=== PATIENT | male | born 1960 | race Caucasian/White ===

== ENCOUNTER 2019-07-08 08:00 | Outpatient (RCR) | payer MEDICARE, OTHER, SELFPAY | END 2019-07-15 23:59 | disposition home or self-care (01) | LOC: WOUND 08:00 | PROVIDERS: Family Provider Internal Medicine; PCP Internal Medicine; Visit Provider Surgery | DX: I87.2 Venous insufficiency (chronic) (peripheral) (principal); L97.812 Non-pressure chronic ulcer of other part of right lower leg with fat layer exposed; I96 Gangrene, not elsewhere classified | CPT/HCPCS: 11042; G0463 ==

== ENCOUNTER 2019-07-15 08:39 | Outpatient (RCR) | payer MEDICARE, OTHER, SELFPAY | END 2019-07-15 23:59 | disposition home or self-care (01) | LOC: WOUND 08:39 | PROVIDERS: Family Provider Internal Medicine; PCP Internal Medicine; Visit Provider Surgery | DX: I87.2 Venous insufficiency (chronic) (peripheral) (principal); L97.902 Non-pressure chronic ulcer of unspecified part of unspecified lower leg with fat layer exposed | CPT/HCPCS: 11042 ==

== ENCOUNTER 2019-07-29 08:36 | Outpatient (RCR) | payer MEDICARE, OTHER, SELFPAY | END 2019-08-13 23:59 | disposition home or self-care (01) | LOC: WOUND 08:36 | PROVIDERS: Family Provider Internal Medicine; PCP Internal Medicine; Visit Provider Surgery | DX: I87.2 Venous insufficiency (chronic) (peripheral) (principal); L97.902 Non-pressure chronic ulcer of unspecified part of unspecified lower leg with fat layer exposed | CPT/HCPCS: 11042; 99212; A6545 ==

== ENCOUNTER 2020-04-20 08:51 | Inpatient (IN) | payer MEDICARE, OTHER, SELFPAY ==
[2020-04-20] VITALS (45 sets, daily range): BP systolic 109–150; BP diastolic 49–95; PULSE 76–153; RESP 9–36; TEMP 36.7–37.6; O2SAT 89–99; BMI 62.7
--- NOTE | 2020-04-20 09:14 | XR_ITS ---
WS: [id number] XR chest 1V portable [id number] REASON FOR EXAM: dyspnea FINDINGS: Pacemaker in place over the left chest with leads to the right atrium and right ventricular apex. The re is cardiomegaly. There are chronic interstitial changes in the left lower lung. The lung martinez are otherwise relative ly clear. Mild flattening of the hemidiaphragms. Degenerative spondylosis, moderate, in the mid and lower thoracic spine. XR/XR chest 1V portable [id number] IMPRESSION: No acute chest abnormality identified.
[2020-04-20 09:33] LABS: ABG PH Result 7.46 (7.35-7.45); Arterial Blood Gas Hematocrit 40.4 % (42-52); Base Excess ABG 0.9 mmol/L (-2.0-2.0); Blood Gas Allen Test Pos; Blood Gas Operator Identificat MONRO; Blood Gas Sample Site Radial, left; Blood Gas Sample Type Arterial; HCO3 ABG 24.3 mmol/L (22-26); Oxygen Device NC; PO2 ABG 89.6 mmHg (80.0-100.0)
[2020-04-20 09:44] LABS: Basophils % 0.2 %; Eosinophils % 0.2 %; Hematocrit 41.3 % (42.0-52.0); Hemoglobin 13.2 g/dL (11.7-16.6); Lymphocytes # 0.8 10^3/uL (0.8-4.8); Mean Corpuscular Hemoglobin 31.9 pg (28.0-34.0); Mean Corpuscular Volume 99.8 fL (80-94); Mean Platelet Volume 11.2 fL (7.4-10.4); Monocytes # 0.5 10^3/uL (0.2-0.9); Monocytes % 10.5 %; Neutrophils # 3.21 10^3/uL (1.8-7.7); Neutrophils % 71.7 %; Nucleated Red Blood Cells % 0 %; Platelet Count 136 10^3/cmm (130-400); Red Blood Count 4.14 10^6/uL (4.1-5.3); Red Cell Distribution Width 13.4 % (12.1-15.1); White Blood Count 4.5 10^3/uL (4.0-10.0)
[2020-04-20] MEDS: dexamethasone 4 mg/mL INJ 6 MG IVP (09:55)
[2020-04-20] MEDS: amiodarone 200 mg Tablet PO (09:56)
[2020-04-20] MEDS: metoprolol tartrate 1 mg/1 mL SDV 5 mL 5 MG IV (09:56)
[2020-04-20 10:01] LABS: Lactic Sepsis W/Reflex 1.4 mmol/L (0.5-2.2)
[2020-04-20 10:02] LABS: Fibrinogen 586 mg/dL (174-498)
[2020-04-20 10:04] LABS: D Dimer 2.03 ug/mIFEU (0-0.59)
[2020-04-20 10:22] LABS: Alanine Aminotransferase 30 U/L (0-41); Albumin Level 3.4 g/dL (3.5-5.2); Alkaline Phosphatase 57 IU/L (40-130); Aspartate Amino Transferase 31 U/L (0-40); Blood Urea Nitrogen 10 mg/dL (8-23); C Reactive Protein 86.1 mg/L (0.0-4.9); Carbon Dioxide 24 mmol/L (22-29); Chloride 103 mmol/L (98-107); Globulin 3.7 g/dL (1.3-4.6); Glomerular Filtration Rate 86.1 mL/min (90-130); Glucose 122 mg/dL (65-115); Osmolality Calculated 288 mOsm/kg (285-295); Sodium 139 mmol/L (136-145); Total Bilirubin 0.4 mg/dL (0.15-1.2); Total Protein 7.1 g/dL (6.6-8.7)
--- NOTE | 2020-04-20 10:23 | ED_ITS ---
HPI - Arrhythmia/Palpitations General: Chief Complaint: Arrhythmia/Palpitations Stated Complaint: HIGH HEARTRATE/COVID+ Time Seen by Provider: 04/20/20 09:11 History of Present Illness: HPI narrative: 59-year-old male presents complaining of cough shortness of breath and rapid heart rate with any exertion his heart rate goes up significantly. He recently tested positive for Covid at a local clinic on a rapid nucleic acid antigen test. He states that any e xertion he gets significantly short of breath he is intermittently had low-grade fevers and diarrhea as well. MD complaint: rapid heart beat, heart racing , irregular heart beat and atrial fibrillation Onset (ago): hour(s) Duration: constant Severity: moderate Context: occurred during rest Associated symptoms: Deny nausea or vomiting Review of Systems Const: Denies: fever(s), chills, body aches, change in appetite, fatigue or malaise ENMT: Reports: nasal discharge and nasal congestion; Denies: throat pain or ear or mastoid pain Card: Reports: edema, dyspnea on exertion and orthopnea; Denies: chest pain Resp: Denies: dyspnea, productive cough or non-productive cough GI: Reports: diarrhea; Denies: abdominal pain, nausea, vomiting, hematemesis, coffee ground emesis, constipation, bloating, hematochezia or melena : Denies: flank pain, dysuria, urinary frequency or urinary urgency Skin/Breast: Denies: rash or pruritus PFSH ED PFSH: Medical History (Updated 04/21/20 @ 12:14 by David Atwood DO) Anticoagulation adequate with anticoagulant therapy Xarelto Atrial fibrillation Cardiomyopathy CHF (congestive heart failure) Dyslipidemia HTN (hypertension) Obesity MIMI on CPAP Sleep apnea Venous insufficiency Surgical History (Updated 04/20/20 @ 16:37 by Berny Wright MD) H/O hand surgery H/O local excision of skin lesion History of cardiac radiofrequency ablation S/P ICD (internal cardiac defibrillator) procedure Family History (Updated 04/20/20 @ 16:36 by Berny Wright MD) Other No significant family history Social History Smoking and tobacco status: former smoker Alcohol intake: current Alcohol intake frequency: holidays/special occasions only Household members: spouse Marital status: service: No Current occupational status: disabled Physical Exam Const: COMMON NORMALS: no acute distress GENERAL APPEARANCE: cooperative and comfortable ORIENTATION/CONSCIOUSNESS: Yes awake, Yes oriented to person, Yes oriented to place and Yes oriented to time HENMT: COMMON NORMALS: normocephalic, atraumatic and hearing grossly normal bilaterally HEAD & SCALP: normocephalic and atraumatic Resp: COMMON NORMALS: normal respiratory effort, No retractions, No use of accessory muscles and clear to auscultation bilaterally AUSCULTATION: clear to auscultation bilaterally Cardio: RATE: tachycardic RHYTHM: abnormal rhythm irregularly irregular GI: COMMON NORMALS: Soft to palpation and No hepatosplenomegaly present AUSCULTATION: Yes normoactive bowel sounds PALPATION: Yes Soft to palpation, No Tenderness to palpation present (GI), No Guarding due to palpation present (GI) and Yes No hepatosplenomegaly present Extremity: OTHER: 3+ edema of the lower extremities with ulcers present on the left leg medial and laterally dry eschars are present without drainage there is no evidence of erythema or. No signs of cellulitis Neuro: SENSORIUM/ORIENTATION: Yes oriented to person, Yes oriented to place and Yes oriented to time Skin: COMMON NORMALS: no rashes or lesions noted GENERAL SKIN EXAM: no rashes or lesions noted Course Vital Signs: Vital signs: Vital Signs Temperature 97.9 F 04/21/20 06:00 Pulse Rate 82 04/21/20 10:00 Respiratory Rate 20 H 04/21/20 10:00 Blood Pressure 126/78 04/21/20 06:00 Pulse Oximetry 96 04/21/20 09:40 MDM - Arrhythmia/Palpitations MDM Narrative: Medical decision making narrative: A. fib with RVR did not take his morning medicines we gave him his amiodarone and some IV beta-fausto he still did not have improvement of his rate. He was started on Cardizem and given oral beta-fausto. Will admit due to his pneumonia which is likely secondary to his recent COVID-19 diagnosis also for his A. fib with RVR discussed Dr. Wright orders are written Lab Data: Labs: Lab Results 04/20/20 04/20/20 04/20/20 Range/Units 09:20 09:35 09:35 WBC 4.5 (4.0-10.0) 10^3/ uL RBC 4.14 (4.1-5.3) 10^6/u L Hgb 13.2 (11.7-16.6) g/dL Hct 41.3 L (42.0-52.0) % MCV 99.8 H (80-94) fL MCH 31.9 (28.0-34.0) pg MCHC 32.0 (30.0-36.0) g/dL RDW 13.4 (12.1-15.1) % Plt Count 136 (130-400) 10^3/c mm MPV 11.2 H (7.4-10.4) fL Neut % (Auto) 71.7 % Lymph % (Auto) 17.0 % Moffat % (Auto) 10.5 % Eos % (Auto) 0.2 % Baso % (Auto) 0.2 % Neut # (Auto) 3.21 (1.8-7.7) 10^3/u L Lymph # (Auto) 0.8 (0.8-4.8) 10^3/u L Moffat # (Auto) 0.5 (0.2-0.9) 10^3/u L Eos # (Auto) 0.0 (0.0-0.8) 10^3/u L Baso # (Auto) 0.0 (0.0-0.1) 10^3/u L Nucleated RBC % (a uto) 0 % Nucleated RBCs # 0.0 /100WBC Fibrinogen 586 H (174-498) mg/dL D-Dimer 2.03 H (0-0.59) ug/mIFE U Specimen Type Arterial Sample Site Radial, left ABG pH 7.46 H (7.35-7.45) ABG pCO2 34.0 L (35-45) mmHg ABG pO2 89.6 (80.0-100.0) mmH g ABG HCO3 24.3 (22-26) mmol/L ABG Base Excess 0.9 (-2.0-2.0) mmol/ L Rafita Test Pos Hematocrit 40.4 L (42-52) % O2 Delivery Device Nc O2 Liters/Min 3.0 % FiO2 32.0 % Turf Farm Worker ID Monro Sodium (136-145) mmol/L Potassium (3.5-5.1) mmol/L Chloride (98-107) mmol/L Carbon Dioxide (22-29) mmol/L Anion Gap (5-19) BUN (8-23) mg/dL Creatinine (0.7-1.2) mg/dL GFR Calculation (90-130) mL/min Glucose (65-115) mg/dL Calculated Osmolal ity (285-295) mOsm/k g Lactic Acid (0.5-2.2) mmol/L Calcium (8.5-10.5) mg/dL Total Bilirubin (0.15-1.2) mg/dL AST (0-40) U/L ALT (0-41) U/L Alkaline Phosphata se (40-130) IU/L Lactate Dehydrogen ase (135-225) U/L Creatine Kinase (39-308) U/L C-Reactive Protein (0.0-4.9) mg/L Total Protein (6.6-8.7) g/dL Albumin (3.5-5.2) g/dL Globulin (1.3-4.6) g/dL Procalcitonin (0-0.5) ng/mL 04/20/20 04/20/20 Range/Units 09:35 09:35 WBC (4.0-10.0) 10^3/ uL RBC (4.1-5.3) 10^6/u L Hgb (11.7-16.6) g/dL Hct (42.0-52.0) % MCV (80-94) fL MCH (28.0-34.0) pg MCHC (30.0-36.0) g/dL RDW (12.1-15.1) % Plt Count (130-400) 10^3/c mm MPV (7.4-10.4) fL Neut % (Auto) % Lymph % (Auto) % Moffat % (Auto) % Eos % (Auto) % Baso % (Auto) % Neut # (Auto) (1.8-7.7) 10^3/u L Lymph # (Auto) (0.8-4.8) 10^3/u L Moffat # (Auto) (0.2-0.9) 10^3/u L Eos # (Auto) (0.0-0.8) 10^3/u L Baso # (Auto) (0.0-0.1) 10^3/u L Nucleated RBC % (a uto) % Nucleated RBCs # /100WBC Fibrinogen (174-498) mg/dL D-Dimer (0-0.59) ug/mIFE U Specimen Type Sample Site ABG pH (7.35-7.45) ABG pCO2 (35-45) mmHg ABG pO2 (80.0-100.0) mmH g ABG HCO3 (22-26) mmol/L ABG Base Excess (-2.0-2.0) mmol/ L Rafita Test Hematocrit (42-52) % O2 Delivery Device O2 Liters/Min % FiO2 % Turf Farm Worker ID Sodium 139 (136-145) mmol/L Potassium 3.7 (3.5-5.1) mmol/L Chloride 103 (98-107) mmol/L Carbon Dioxide 24 (22-29) mmol/L Anion Gap 15.7 (5-19) BUN 10 (8-23) mg/dL Creatinine 0.9 (0.7-1.2) mg/dL GFR Calculation 86.1 L (90-130) mL/min Glucose 122 H (65-115) mg/dL Calculated Osmolal ity 288 (285-295) mOsm/k g Lactic Acid 1.4 (0.5-2.2) mmol/L Calcium 8.0 L (8.5-10.5) mg/dL Total Bilirubin 0.4 (0.15-1.2) mg/dL AST 31 (0-40) U/L ALT 30 (0-41) U/L Alkaline Phosphata se 57 (40-130) IU/L Lactate Dehydrogen ase 302 H (135-225) U/L Creatine Kinase 369 H* (39-308) U/L C-Reactive Protein 86.1 H (0.0-4.9) mg/L Total Protein 7.1 (6.6-8.7) g/dL Albumin 3.4 L (3.5-5.2) g/dL Globulin 3.7 (1.3-4.6) g/dL Procalcitonin 0.10 (0-0.5) ng/mL Discharge Plan Discharge Patient Disposition: Admitted As Inpatient Admit Provider: Berny Wright Clinical Impression: Pneumonia due to COVID-19 virus, Atrial fibrillation, CHF (congestive heart failure), Rhabdomyolysis, HTN (hypertension), Obesity Condition: Stable Interventions: ED Discharge Assessment Last Done: 04/20/20 16:30 ED Charges Last Done: 04/20/20 16:30 Discharge Date/Time: 04/20/20 17:00 Coding Level of Care Code ED Manager Sustainability for Chg Fwd Exam Detailed
[2020-04-20 10:25] LABS: Creatine Phosphokinase 369 U/L (39-308)
[2020-04-20 10:26] LABS: Anion Gap 15.7 (5-19); Lactate Dehydrogenase 302 U/L (135-225); Potassium 3.7 mmol/L (3.5-5.1)
--- NOTE | 2020-04-20 10:29 | CT_ITS ---
WS: [id number] CTA OF THE CHEST WITH PULMONARY EMBOLISM PROTOCOL TECHNIQUE: High-resolution contrast enhanced CTA of the chest with coronal and sagittal reformatted i mages with pulmonary embolism protocol. MIP images are also reviewed. CLINICAL INFORMATION: dyspnea, orthopnea/covid + COMPARISON: None. DLP: 976.[address] scans at [facility] use at least one of these dose optimization techniques: automat ed exposure control; mA and/or kV adjustment per patient size (includes targeted exams where dose is matched to clinical indication); or iterative reconstruction. FINDINGS: Somewhat poor contrast bolus. Proximal main pulmonary arteries are normal. Proximal segmental pulmona ry arteries are patent. Subsegmental pulmonary arteries not well visualized but no evidence of pulmon nena embolus. Cardiomegaly. Multiple enlarged anterior mediastinal, AP window, peribronchial and subcarinal lymph n odes likely reactive. Normal caliber thoracic aorta. Mild patchy hazy groundglass opacities about the right hilum and left infrahilar extending into the left lower lobe peripherally. Additional similar-appearing opacity in r ight lower lobe posterior medially. Relative sparing of the lung apices. No significant pleural fluid. Slight subsegmental atelectasis left lower lobe. No axillary lymphadeno rip. Adrenal glands are normal. Small esophageal hiatal hernia. A few tiny cysts in the liver. Moderate th oracic kyphosis. Hypertrophic changes thoracic spine. CT/CT angio chest PE protcl [id number] IMPRESSION: 1. Somewhat poor contrast bolus. No evidence of proximal pulmonary embolus. 2. Cardiomegaly. 3. Patchy hazy groundglass opacities in a perihilar and infrahilar location ex tending into the left greater than right lower lobes consistent with pneumonia. 4. Numerous enlarged anterior mediastinal peribronchial and subcarinal lymph n odes likely reactive. 5. Small esophageal hiatal hernia.
--- NOTE | 2020-04-20 11:41 | ECG_ITS ---
[facility] Test Date: 2020-04-20 Pat Name: Harry Miles Department: Room: Gender: Male Certified Registered Nurse Anesthetist: : 1960 Requested By: David Morton Order Number: [id number] Reading MD: RICO PFEIFFER Measurements Intervals [place] Rate: 150 P: ME: -1 QRS: -42 QRSD: 95 T: 74 QT: 302 QTc: 478 Interpretive Statements ATRIAL FIBRILLATION WITH RAPID VENTRICULAR RESPONSE ANTERIOR MYOCARDIAL INFARCTION [40+ ms Q WAVE AND/OR ST/T ABNORMALITY IN V3/V4], PROBABLY OLD INFERIOR MYOCARDIAL INFARCTION [40+ ms Q WAVE AND/OR ST/T ABNORMALITY IN II/aVF], PROBABLY OLD Compared to ECG 08/11/2018 13:31:01 Sinus bradycardia no longer present Myocardial infarct finding still present Electronically Signed On 04-20-2020 19:28:45 SENIOR FACILITIES MANAGER by RICO PFEIFFER [id number]
[2020-04-20] MEDS: iohexol 350 mg/mL 100 mL Btl IV (12:19)
--- NOTE | 2020-04-20 16:01 | PC.NURSE ---
Attempted to call report after being asked to wait 1 hour due to allow assigned roommate to pass peacefully, MARTIN Pugh (traveler) that they would not be taking that patient until another patient was extubated and settled and they had already told assistant executive housekeeper,
--- NOTE | 2020-04-20 16:02 | PM.HP ---
Providers/Chief Complaint Admitting Physician: Berny Wright Primary Care Provider: Nirav Parra DO Chief Complaint: HIGH HEARTRATE History of Present Illness Harry Miles is a 59 year old gentleman with CHF, Atrial fibrillation, previously difficult to control, with ablation performed in the past, cardioversion, on amiodarone, high dose of metoprolol. Follows up with cardiology in office. Status post ICD. Other history includes chronic venous insufficiency, lower extremity chronic swelling, chronic ulceration, HTN, HLD, obesity, sleep apnea. He presents to the hospital after progressive shortness of breath, dyspnea with exertion, extremely easy fatigability. He reports that he was diagnosed with COVID-19 on 04/10. He says that initially was having some nausea vomiting and diarrhea. He says those had subsided day before yesterday, but now has started developing progressive shortness of breath. In ER I am informed he was desaturating very easily with even minimal activity, getting very short of breath, and so required initiation of oxygen. D-dimer is found elevated at 2.03. CTA with patchy hazy groundglass opacities in perihilar and infrahilar regions, extending into left greater than right lower lobes consistent with pneumonia. Incidentally noted numerous enlarged anterior mediastinal peribronchial and subcarinal lymph nodes suspected reactive. No proximal pulmonary embolus, somewhat poor contrast bolus. Incidentally noted small esophageal hiatal hernia. He is also noted in A. fib with RVR, heart rates in 120s. Denies chest pain. Had not had a chance to take his morning medications. Was given 25 mg metoprolol p.o., 5 mg IV, but with no response. Diltiazem was started after IV bolus. He was started on Decadron. Review of Systems Const: Reports: fatigue; Denies: body aches or malaise Eyes: Denies: change in vision or eye redness ENMT: Denies: throat pain, oral sores or ear or mastoid pain Card: Reports: irregular heart rhythm, edema (chronic, currently better) and dyspnea on exertion; Denies: chest pain or pre-syncope Resp: Reports: dyspnea and pain on inspiration (Tiny area of sharp pain on inspiration in the left chest started today.); Denies: productive cough, change in phlegm color or hemoptysis GI: Denies: abdominal pain, nausea, vomiting, diarrhea, constipation, hematochezia or melena : Denies: flank pain, difficulty urinating, urinary frequency or hematuria Musc: Denies: back pain, joint swelling or joint redness Skin/Breast: Reports: rash (Chronic venous stasis), sores (Chronic venous stasis ulceration on left lower leg, medially above the ankle) and dry skin (chronic dry scaly skin); Denies: new lesions Neuro: Denies: headache(s), numbness in extremities, weakness in extremities, dizziness, confusion or seizure-like activity Endo: Denies: polyuria or polydipsia Amandeep/Lymph: Denies: easy bleeding or purpura All/Imm: Denies: urticaria, throat swelling or tongue swelling Medications/Allergies Home Medications Medication Instructions Recorded Confirmed Last Taken Type furosemide 40 mg tablet 40 mg PO BID 06/19/19 04/20/20 04/19/20 History aspirin 81 mg tablet,delayed 81 mg PO DAILY tab 09/29/19 04/20/20 04/19/20 History release nitroglycerin 0.4 mg sublingual 0.4 mg SUBLINGUAL Q5M PRN 09/29/19 04/20/20 Unknown History tablet rivaroxaban 20 mg tablet 20 mg PO DAILY tab 09/29/19 04/20/20 04/19/20 History sacubitril 49 mg-valsartan 51 mg 1 tab PO BID #60 tab 02/09/20 04/20/20 04/19/20 Rx tablet amiodarone 200 mg tablet 200 mg PO DAILY 03/22/20 04/20/20 04/19/20 History Cough Tabs 2 tab PO TID PRN 04/20/20 04/20/20 Unknown History ibuprofen 400 mg PO PRN 04/20/20 04/20/20 04/19/20 History metoprolol succinate 200 mg PO DAILY 04/20/20 04/20/20 04/19/20 History montelukast [Singulair] 10 mg PO DAILY PRN 04/20/20 04/20/20 Unknown History Allergies Allergy/AdvReac Type Severity Reaction Status Date / Time No Known Allergies Allergy Verified 04/20/20 10:27 PFSH Acute PFSH: Medical History (Updated 04/20/20 @ 16:41 by Berny Wright MD) Anticoagulation adequate with anticoagulant therapy Xarelto Atrial fibrillation Cardiomyopathy CHF (congestive heart failure) Dyslipidemia HTN (hypertension) Obesity MIMI on CPAP Sleep apnea Venous insufficiency Surgical History (Updated 04/20/20 @ 16:37 by Berny Wright MD) H/O hand surgery H/O local excision of skin lesion History of cardiac radiofrequency ablation S/P ICD (internal cardiac defibrillator) procedure Family History (Updated 04/20/20 @ 16:36 by Berny Wright MD) Other No significant family history Social History Smoking and tobacco status: former smoker Alcohol intake: current Alcohol intake frequency: holidays/special occasions only Household members: spouse Marital status: service: No Current occupational status: disabled Vitals/I&O/Wt Last Vital Signs Temp 99.6 F 04/20/20 08:54 Pulse 87 04/20/20 15:45 Resp 17 04/20/20 15:45 BP 122/92 04/20/20 15:45 Pulse Ox 92 04/20/20 15:45 04/20/20 04/20/20 04/20/20 06:59 14:59 22:59 Intake Total 4.833 / 4.833 Balance 4.833 / 4.833 Weight last 48 hrs Weight 192.777 kg Physical Exam Const: COMMON NORMALS: no acute distress and patient oriented x3 NUTRITIONAL APPEARANCE: obese HENMT: COMMON NORMALS: oropharynx normal Neck/C-Spine: COMMON NORMALS: no JVD Resp: COMMON NORMALS: normal respiratory effort AUSCULTATION: wheezes and diminished lung sounds Cardio: COMMON NORMALS: no JVD, regular rhythm, S1 normal heart sound present, S2 normal heart sound present and No murmurs present (Cardio) RATE: tachycardic RHYTHM: abnormal rhythm irregularly irregular HEART SOUNDS: S1 normal heart sound present and S2 normal heart sound present GI: COMMON NORMALS: Normal to inspection, nondistended, normoactive bowel sounds present, Soft to palpation and non-tender PALPATION: Yes Soft to palpation Extremity: COMMON NORMALS: no joint enlargement GENERAL: Yes edema (Chronic severe bilateral venous stasis. Medial left lower extremity chronic venous ulceration. No active drainage. No purulence.) Neuro: COMMON NORMALS: patient oriented x3 and moves all extremities Skin: GENERAL SKIN EXAM: dry skin LESIONS: lesion noted (Ulceration from venous stasis medial lower extremity above the ankle) RASHES: rashes noted (Chronic bilateral lower extremity venous stasis dermatitis.) Data : 04/20/20 09:35 04/20/20 09:35 A&P Assessment and plan (1) Pneumonia due to COVID-19 virus: Progressive shortness of breath, easy fatigability, dyspnea on exertion in the last several days. Previously diarrhea, nausea vomiting, but this appeared to resolve day before yesterday. D-dimer elevated above 2. CRP is 86.1. Groundglass opacities, pneumonia noted on CTA. No PE. At this time no definitive evidence of bacterial pneumonia, although there is some asymmetry to pneumonia on imaging. No leukocytosis. Temp 99.6. Reported requiring oxygen with desaturation down to 90% with minimal exertion. Dyspnea with exertion. Due to this his COVID-19 pneumonia is severe. Started on Decadron. Sputum culture possible. Monitor for leukocytosis, high fevers, any productive cough/sputum purulence, any worsening condition to suspect superimposed bacterial infection. Given he has been requiring oxygen will start him on remdesivir. Wean O2 as tolerating. Normally not on O2. Prone as tolerating. IS Status: Acute (2) Paroxysmal atrial fibrillation with RVR: Heart rate little bit better currently 100-110. Continue Cardizem drip. Resume amiodarone. Metoprolol 100 mg twice daily. Escalate if blood pressure allows. At home on 200 mg succinate. Continue Xarelto. Discussed briefly with his policy analyst, previously with recurrent paroxysmal A. fib, status post ablation, previously also cardioversion, maintained in sinus rhythm with amiodarone. Given suspicion that A. fib RVR is triggered by acute illness, currently continue Cardizem, treat underlying illness. If not respiratory status improving, but A. fib with RVR persistent, with continued anticoagulation consider switching to amiodarone drip. Monitor on telemetry. Admitted to VICU. Status: Acute (3) Hypoxia: As above. Status: Acute (4) Elevated d-dimer: No PE and proximal arteries. Secondary to COVID-19 infection. Monitor. Anticoagulated. Status: Acute (5) Rhabdomyolysis: CKD mildly elevated at 369. Recheck. Check troponin series. Status: Acute (6) Mediastinal lymphadenopathy: Suspected reactive. Consider follow-up after recovery to confirm resolution. Status: Acute Additional A&P Information CHF: Currently appears compensated. Continue Lasix. Cardiac diet. MIMI: Nightly CPAP HTN HLD Obesity Chronic venous insufficiency Chronic venous ulceration Attestations Medical Necessity Statement*: Admission of over 2 midnights continued for assessment of management of severe COVID-19 pneumonia, hypoxia, A. fib with RVR Coding Level of Care Code Acute Manager Cardiac for [facility] Fwd Diagnoses Pneumonia due to COVID-19 virus U07.1; J12.89 Paroxysmal atrial fibrillation with RVR I48.0 Hypoxia R09.02 Elevated d-dimer R79.89 Rhabdomyolysis M62.82 Mediastinal lymphadenopathy R59.0
--- NOTE | 2020-04-20 16:36 | ECG_ITS ---
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 Measurements Intervals [place] Rate: 85 P: MI: -1 QRS: -30 QRSD: 114 T: 67 QT: 393 QTc: 469 Interpretive Statements ATRIAL FIBRILLATION WITH DEMAND VENTRICULAR PACING ELECTRONIC VENTRICULAR PACEMAKER -- CONTOUR ANALYSIS BASED ON INTRINSIC RHYTHM INFERIOR MYOCARDIAL INFARCTION, PROBABLY OLD Compared to ECG 04/20/2020 09:03:20 No significant change Electronically Signed On 04-23-2020 8:17:20 ASBESTOS REMOVER by Melinda Rivas M.D. [id number]
[2020-04-20] MEDS: metoprolol tartrate 25 mg Tablet PO (16:42)
[2020-04-20] MEDS: rivaroxaban 10 mg Tablet 20 MG PO (17:15)
[2020-04-20] MEDS: metoprolol tartrate 50 mg Tablet 100 MG PO (18:04)
[2020-04-20] MEDS: FUROsemide 40 mg Tablet PO (18:04)
[2020-04-20 18:27] LABS: Troponin(5th) Baseline 8 ng/L (0-15)
--- NOTE | 2020-04-20 21:28 | PC.NURSE ---
Recliner placed in room per request patient wants to sleep in it with C-Pap- up at bedside to void
[2020-04-21] VITALS (29 sets, daily range): BP systolic 105–155; BP diastolic 69–96; PULSE 54–144; RESP 12–33; TEMP 36.6–36.7; O2SAT 83–100
[2020-04-21 03:06] LABS: Troponin(5th) Baseline 8 ng/L (0-15)
[2020-04-21 04:19] LABS: Basophils % 0.3 %; Hemoglobin 13.2 g/dL (11.7-16.6); Lymphocytes # 0.7 10^3/uL (0.8-4.8); Lymphocytes % 20.4 %; Mean Corpuscular HGB Conc 32.2 g/dL (30.0-36.0); Mean Corpuscular Volume 99.5 fL (80-94); Mean Platelet Volume 11.5 fL (7.4-10.4); Monocytes # 0.4 10^3/uL (0.2-0.9); Monocytes % 10.8 %; Neutrophils # 2.21 10^3/uL (1.8-7.7); Neutrophils % 68.2 %; Nucleated Red Blood Cells % 0 %; Platelet Count 148 10^3/cmm (130-400); Red Blood Count 4.12 10^6/uL (4.1-5.3); Red Cell Distribution Width 13.2 % (12.1-15.1); White Blood Count 3.2 10^3/uL (4.0-10.0)
[2020-04-21 04:33] LABS: Alanine Aminotransferase 31 U/L (0-41); Albumin Level 3.6 g/dL (3.5-5.2); Alkaline Phosphatase 58 IU/L (40-130); Anion Gap 16.2 (5-19); Aspartate Amino Transferase 26 U/L (0-40); Blood Urea Nitrogen 12 mg/dL (8-23); Calcium 8.1 mg/dL (8.5-10.5); Carbon Dioxide 25 mmol/L (22-29); Chloride 104 mmol/L (98-107); Globulin 3.6 g/dL (1.3-4.6); Glomerular Filtration Rate 86.1 mL/min (90-130); Glucose 131 mg/dL (65-115); Osmolality Calculated 294 mOsm/kg (285-295); Potassium 4.2 mmol/L (3.5-5.1); Sodium 141 mmol/L (136-145); Total Bilirubin 0.3 mg/dL (0.15-1.2); Total Protein 7.2 g/dL (6.6-8.7)
[2020-04-21 04:39] LABS: Creatine Phosphokinase 331 U/L (39-308)
--- NOTE | 2020-04-21 06:23 | PC.NURSE ---
no weight obtained patient in chair and sleeping has been awake most of night -therefore not awakened for move to bed and weight -
[2020-04-21 06:29] LABS: D Dimer 1.53 ug/mIFEU (0-0.59)
[2020-04-21 06:36] LABS: Slide Review Slide Review Perform
[2020-04-21 07:52] LABS: Troponin 5 6HR 8.67 ng/L (0-15); Troponin 5 6HR Delta 0.67 ng/L (0-12)
[2020-04-21] MEDS: amiodarone 200 mg Tablet PO (08:25)
[2020-04-21] MEDS: dexamethasone 4 mg/mL INJ 6 MG IVP (08:25)
[2020-04-21] MEDS: aspirin 81 mg EC Tablet PO (08:25)
[2020-04-21] MEDS: FUROsemide 40 mg Tablet PO ×2 (08:25→18:59)
[2020-04-21 08:51] LABS: Troponin 5 2HR 8.72 ng/L (0-15); Troponin 5 2HR Delta 0.72 ABS# (0-10)
[2020-04-21] MEDS: metoprolol succinate ER (24 HR) 100 mg Tablet 200 MG PO (09:22)
[2020-04-21] MEDS: rivaroxaban 10 mg Tablet 20 MG PO (18:58)
--- NOTE | 2020-04-21 19:56 | PM.PN ---
Subjective Subjective: Interval history: He feels he is doing better. He has been weaned down to minimal oxygen, and now even down to room air. Denies chest pain. Heart rate has been irregular, intermittently some tachycardia even at rest. He is normally in sinus rhythm, with heart rates running in the 60s. Vitals/I&O/Wt Last Vital Signs Temp 97.9 F 04/21/20 06:00 Pulse 76 04/21/20 19:41 Resp 16 04/21/20 19:41 BP 115/85 04/21/20 16:00 Pulse Ox 95 04/21/20 19:41 04/21/20 04/21/20 04/21/20 06:59 14:59 22:59 Intake Total 240 / 623.750 660 / 660 727 / 1387 Output Total 850 / 1425 800 / 800 420 / 1220 Balance -610 / -801.250 -140 / -140 307 / 167 Weight last 48 hrs Weight 192.777 kg Weight 192.777 kg Physical Exam Const: COMMON NORMALS: no acute distress and patient oriented x3 NUTRITIONAL APPEARANCE: obese HENMT: COMMON NORMALS: oropharynx normal Neck/C-Spine: COMMON NORMALS: no JVD Resp: COMMON NORMALS: normal respiratory effort AUSCULTATION: no wheezes and diminished lung sounds Cardio: COMMON NORMALS: no JVD, S1 normal heart sound present, S2 normal heart sound present and No murmurs present (Cardio) RHYTHM: abnormal rhythm irregularly irregular HEART SOUNDS: S1 normal heart sound present and S2 normal heart sound present GI: COMMON NORMALS: Normal to inspection, nondistended, normoactive bowel sounds present, Soft to palpation and non-tender PALPATION: Yes Soft to palpation Extremity: COMMON NORMALS: no joint enlargement GENERAL: Yes edema (Chronic severe bilateral venous stasis. Medial left lower extremity chronic venous ulceration. No active drainage. No purulence.) Neuro: COMMON NORMALS: patient oriented x3 and moves all extremities Skin: GENERAL SKIN EXAM: dry skin LESIONS: lesion noted (Ulceration from venous stasis medial lower extremity above the ankle) RASHES: rashes noted (Chronic bilateral lower extremity venous stasis dermatitis.) Data : 04/21/20 03:15 04/21/20 03:15 A&P Assessment and plan (1) Paroxysmal atrial fibrillation with RVR: Rate improved, rate is better, however, remains in atrial fibrillation. Reports normally heart rates in the 60s in sinus rhythm. Here with minimal exertion heart rates become faster. With previously difficult to treat atrial fibrillation. Per discussion with cardiology continue anticoagulation, initiate amiodarone drip. Continue to monitor telemetry. Switched over to home dose metoprolol. Status: Acute (2) Pneumonia due to COVID-19 virus: Improving. Weaned down to room air at rest. Continue remdesivir, Decadron. With exertion may require some oxygen, and will require home oxygen evaluation prior to discharge home. Subjectively he is doing well. At this time no definitive evidence of bacterial pneumonia, although there is some asymmetry to pneumonia on imaging. No leukocytosis. Temp 99.6. Sputum culture possible. Monitor for leukocytosis, high fevers, any productive cough/sputum purulence, any worsening condition to suspect superimposed bacterial infection. IS Status: Acute (3) Hypoxia: As above. Status: Acute (4) Elevated d-dimer: No PE and proximal arteries. Secondary to COVID-19 infection. Monitor. Anticoagulated. Status: Acute (5) Rhabdomyolysis: CKD mildly elevated at 369. Recheck. Check troponin series. Status: Acute (6) Mediastinal lymphadenopathy: Suspected reactive. Consider follow-up after recovery to confirm resolution. Status: Acute Additional A&P Information CHF: Currently appears compensated. Continue Lasix. Cardiac diet. MIMI: Nightly CPAP HTN HLD Obesity Chronic venous insufficiency Chronic venous ulceration Attestations Medical Necessity Statement*: Continue admission for assessment management of atrial fibrillation with RVR, with history of difficult to control atrial fibrillation, in rhythm control, with underlying COVID-19 pneumonia. Coding Level of Care Code Acute Geodetic Survey Director for [facility] Fwd Diagnoses Paroxysmal atrial fibrillation with RVR I48.0 Pneumonia due to COVID-19 virus U07.1; J12.89 Hypoxia R09.02 Elevated d-dimer R79.89 Rhabdomyolysis M62.82 Mediastinal lymphadenopathy R59.0
--- NOTE | 2020-04-21 22:55 | PC.NURSE ---
Patient resting in chair in room at this time. V/S are all WNL. Patient is currently on Amio drip per protocol. Patient is able to voice concerns and make needs known. Call humphrey is within reach. Continue care.
[2020-04-22] VITALS (61 sets, daily range): BP systolic 93–116; BP diastolic 62–79; PULSE 73–149; RESP 11–35; TEMP 36.7–36.9; O2SAT 65–99
--- NOTE | 2020-04-22 05:21 | PC.NURSE ---
Shift summary: Patient rested quietly in chair in room for the shift. Patient very polite and conversed with staff. Patient denies any pain at this time. Patient is currently hooked to amio drip per protocol. Labs drawn this morning. Call light within reach. Continue care.
[2020-04-22 06:19] LABS: Basophils % 0.2 %; Hematocrit 41.5 % (42.0-52.0); Hemoglobin 13.2 g/dL (11.7-16.6); Lymphocytes # 0.9 10^3/uL (0.8-4.8); Lymphocytes % 18.5 %; Mean Corpuscular HGB Conc 31.8 g/dL (30.0-36.0); Mean Corpuscular Hemoglobin 32.2 pg (28.0-34.0); Mean Corpuscular Volume 101.2 fL (80-94); Mean Platelet Volume 11.5 fL (7.4-10.4); Monocytes # 0.4 10^3/uL (0.2-0.9); Monocytes % 8.1 %; Neutrophils # 3.51 10^3/uL (1.8-7.7); Neutrophils % 72.8 %; Nucleated Red Blood Cells % 0 %; Platelet Count 172 10^3/cmm (130-400); Red Cell Distribution Width 13.2 % (12.1-15.1); White Blood Count 4.8 10^3/uL (4.0-10.0)
--- NOTE | 2020-04-22 06:25 | PC.NURSE ---
Patient in resting in room in chair at this time. Had a cup of coffee. Been listening to music on cellphone. Call light within reach. Continue care
[2020-04-22 06:41] LABS: D Dimer 1.36 ug/mIFEU (0-0.59)
[2020-04-22 06:48] LABS: Alanine Aminotransferase 32 U/L (0-41); Albumin Level 3.5 g/dL (3.5-5.2); Alkaline Phosphatase 53 IU/L (40-130); Blood Urea Nitrogen 19 mg/dL (8-23); Calcium 8.3 mg/dL (8.5-10.5); Carbon Dioxide 25 mmol/L (22-29); Chloride 104 mmol/L (98-107); Globulin 3.7 g/dL (1.3-4.6); Glomerular Filtration Rate 86.1 mL/min (90-130); Glucose 129 mg/dL (65-115); Magnesium 2.4 mg/dL (1.7-2.3); Osmolality Calculated 294 mOsm/kg (285-295); Sodium 140 mmol/L (136-145); Total Bilirubin 0.3 mg/dL (0.15-1.2); Total Protein 7.2 g/dL (6.6-8.7)
[2020-04-22 06:49] LABS: C Reactive Protein 46.6 mg/L (0.0-4.9)
[2020-04-22 06:52] LABS: Anion Gap 15.3 (5-19); Aspartate Amino Transferase 25 U/L (0-40); Potassium 4.3 mmol/L (3.5-5.1)
[2020-04-22 08:15] LABS: Slide Review Slide Review Perform
[2020-04-22] MEDS: amiodarone 200 mg Tablet PO (08:24)
[2020-04-22] MEDS: aspirin 81 mg EC Tablet PO (08:24)
[2020-04-22] MEDS: metoprolol succinate ER (24 HR) 100 mg Tablet 200 MG PO (08:25)
[2020-04-22] MEDS: FUROsemide 40 mg Tablet PO (08:25)
[2020-04-22] MEDS: dexamethasone 4 mg/mL INJ 6 MG IVP (08:25)
--- NOTE | 2020-04-22 17:34 | PM.DCS ---
Discharge Providers Date of Admission: 04/20/20 13:39 Date of Discharge: April 22, 2020 Attending Provider at Admission: Berny Wright Attending Provider at Discharge: Berny Wright Primary Care Provider: Nirav Parra DO Diagnoses at Discharge Discharge Diagnosis (1) Paroxysmal atrial fibrillation with RVR: Status: Acute (2) Pneumonia due to COVID-19 virus: Status: Acute (3) Hypoxia: Status: Acute (4) Elevated d-dimer: Status: Acute (5) Rhabdomyolysis: Status: Acute (6) Mediastinal lymphadenopathy: Status: Acute Reason for Visit Reason for Visit: HIGH HEARTRATE Hospital Course Discharge Summary: Pleasant 59-year-old gentleman with CHF, Atrial fibrillation, previously difficult to control, with ablation performed in the past, cardioversion, on amiodarone, high dose of metoprolol. Follows up with cardiology in office. Status post ICD. Other history includes chronic venous insufficiency, lower extremity chronic swelling, chronic ulceration, HTN, HLD, obesity, sleep apnea. Was admitted for assessment management due to very easy fatigability recently, shortness of breath, diagnosed with COVID-19 infection on 04/10, with initially nausea, vomiting and diarrhea which had resolved 2 days prior to admission. Then developed progressive dyspnea. In ER noted desaturating easily, required to be started on low rate oxygen nasal cannula. With noted A. fib with RVR. With improvement in heart rate initially after starting Cardizem drip. Per discussion with cardiology we were treating COVID-19 infection, for which she was receiving remdesivir, Decadron, as needed albuterol MDI, also was continued on Xarelto. Due to history of congestive heart failure was continued on Lasix. Noted to have minimal rhabdomyolysis on presentation, showing improvement. CK 369-331. She reports quite significant improvement in lower extremity edema recently. Suspect he may be actually on the dry side, and this Lasix are switched over to as needed currently. His oxygenation remained stable. He required initially about 2 L of oxygen. CRP noted elevated at 86 showing improvement, down to 46.6 today. D-dimer elevated on presentation at 2.03, down to 1.36 currently. He continues to have cough. He has been tolerating oral diet well. His heart rate significantly improved, he weaned off Cardizem easily. Was switched to home dose metoprolol 200 mg long-acting, and continued on oral amiodarone. Per discussion with cardiology since oxygenation is improving, and he actually weaned off to room air at rest, but still remaining in atrial fibrillation, with occasional tachycardia especially with exertion was treated with amiodarone drip. He did not convert to sinus rhythm, although heart rates have been well controlled, and not 80s-90s at rest and with minimal exertion. He is noted requiring 2 L of oxygen with exertion, and this is ordered for him to prevent effect of hypoxia on his atrial fibrillation. Since he has shown very rapid improvement remdesivir is discontinued currently at discharge, he will complete a course of 5 days of Decadron. He understands that patients with coronavirus may get worse despite initial improvement, and knows to look for red flag symptoms or indeed any concerning symptoms which should prompt him to call an ambulance. Per discussion with cardiology given well-controlled heart rate he was requested to be taken off amiodarone and discharged with follow-up in clinic for reassessment and further medication titration. He is feeling much better, feels ready to return home. He is instructed to maintain isolation until at least Thursday, April 30, which will josé luis 20 days since positive test of COVID-19, and at least 24 hours without fever, symptoms, and improving cough. Please follow-up rhabdomyolysis, volume status, oxygenation, atrial fibrillation. Please set up telehealth visit within 48-72 hours if possible. Otherwise follow-up in office. Please follow-up incidentally noted mediastinal lymph node enlargement, suspected inflammatory. Please continue to follow and assist the gentleman with regards to chronic venous stasis ulceration on lower extremities as well as other chronic conditions including morbid obesity. He states no longer follows with wound care. Physical Exam Const: COMMON NORMALS: no acute distress and patient oriented x3 NUTRITIONAL APPEARANCE: obese OTHER: Awake, alert, pleasant, conversant. In good spirits. Happy to return home. HENMT: COMMON NORMALS: oropharynx normal Neck/C-Spine: COMMON NORMALS: no JVD Chest: CHEST: Yes Pacemaker present Resp: COMMON NORMALS: normal respiratory effort AUSCULTATION: diminished lung sounds (Minimally) Cardio: COMMON NORMALS: no JVD, S1 normal heart sound present, S2 normal heart sound present and No murmurs present (Cardio) RATE: tachycardic RHYTHM: abnormal rhythm irregularly irregular HEART SOUNDS: S1 normal heart sound present and S2 normal heart sound present GI: COMMON NORMALS: Normal to inspection, nondistended, normoactive bowel sounds present, Soft to palpation and non-tender PALPATION: Yes Soft to palpation Extremity: COMMON NORMALS: no joint enlargement GENERAL: Yes edema (Chronic severe bilateral venous stasis. Medial left lower extremity chronic venous ulceration. No active drainage. No purulence.) Neuro: COMMON NORMALS: patient oriented x3 and moves all extremities Skin: GENERAL SKIN EXAM: dry skin LESIONS: lesion noted (Ulceration from venous stasis medial lower extremity above the ankle) RASHES: rashes noted (Chronic bilateral lower extremity venous stasis dermatitis.) Discharge Data Data Completed and Pending: Completed Studies During Hospitalization Category Date Time Status CT angio chest PE protcl [id number] Stat Cat Scan 04/20/20 10:29 Completed XR chest 1V teresita ble [id number] Stat Exams 04/20/20 09:14 Completed Pending at discharge Category Date Time Status C Reactive Protei n AM LABS Lab 04/23/20 04:00 Ordered Complete Blood Co unt w/Auto AM LABS Lab 04/23/20 04:00 Ordered Complete Blood Co unt w/Auto AM LABS Lab 04/24/20 04:00 Ordered Comprehensive Met abolic Panel AM LA BS Lab 04/23/20 04:00 Ordered Comprehensive Met abolic Panel AM LA BS Lab 04/24/20 04:00 Ordered D Dimer AM LABS Lab 04/23/20 04:00 Ordered Sputum Culture an d Gram Stain Stat Lab 04/20/20 09:14 Uncollected Labs from last 24 hours 04/22/20 04/22/20 04/22/20 05:00 05:00 05:00 WBC 4.8 RBC 4.10 Hgb 13.2 Hct 41.5 L MCV 101.2 H MCH 32.2 MCHC 31.8 RDW 13.2 Plt Count 172 MPV 11.5 H Neut % (Auto) 72.8 Lymph % (Auto) 18.5 Shelby % (Auto) 8.1 Eos % (Auto) 0.0 Baso % (Auto) 0.2 Neut # (Auto) 3.51 Lymph # (Auto) 0.9 Shelby # (Auto) 0.4 Eos # (Auto) 0.0 Baso # (Auto) 0.0 Nucleated RBC % (a uto) 0 Nucleated RBCs # 0.0 D-Dimer 1.36 H Sodium 140 Potassium 4.3 Chloride 104 Carbon Dioxide 25 Anion Gap 15.3 BUN 19 Creatinine 0.9 GFR Calculation 86.1 L Glucose 129 H Calculated Osmolal ity 294 Calcium 8.3 L Magnesium 2.4 H Total Bilirubin 0.3 AST 25 ALT 32 Alkaline Phosphata se 53 C-Reactive Protein Total Protein 7.2 Albumin 3.5 Globulin 3.7 04/22/20 05:00 WBC RBC Hgb Hct MCV MCH MCHC RDW Plt Count MPV Neut % (Auto) Lymph % (Auto) Shelby % (Auto) Eos % (Auto) Baso % (Auto) Neut # (Auto) Lymph # (Auto) Shelby # (Auto) Eos # (Auto) Baso # (Auto) Nucleated RBC % (a uto) Nucleated RBCs # D-Dimer Sodium Potassium Chloride Carbon Dioxide Anion Gap BUN Creatinine GFR Calculation Glucose Calculated Osmolal ity Calcium Magnesium Total Bilirubin AST ALT Alkaline Phosphata se C-Reactive Protein 46.6 H Total Protein Albumin Globulin Vitals: Last Vital Signs Temp 98.4 F 04/22/20 10:15 Pulse 83 04/22/20 14:00 Resp 17 04/22/20 14:00 BP 110/66 04/22/20 10:15 Pulse Ox 92 04/22/20 14:33 Discharge Plan Discharge Patient Disposition: Home Condition: Stable Prescriptions: New Ventolin HFA 90 mcg/actuation Hfa Aerosol Inhaler 2 puff inhalation Q4H.RESPIRATORY PRN (Reason: Shortness Of Breath) Qty: 8.5 RF: 0 Decadron 6 mg tablet 6 mg PO DAILY 3 Days Qty: 3 RF: 0 Continued amiodarone 200 mg tablet 200 mg PO DAILY RF: 0 aspirin [Adult Low Dose Aspirin] 81 mg tablet,delayed release (DR/EC) 81 mg PO DAILY RF: 0 Xarelto 20 mg tablet 20 mg PO DAILY RF: 0 nitroglycerin [Nitrostat] 0.4 mg tablet, sublingual 0.4 mg SUBLINGUAL Q5M PRN (Reason: Chest Pain) RF: 0 sacubitril-valsartan [Entresto] 49-51 mg tablet 1 tab PO BID Qty: 60 RF: 4 ibuprofen 200 mg Tablet 400 mg PO PRN RF: 0 Singulair 10 mg Tablet 10 mg PO DAILY PRN (Reason: Cough) RF: 0 Cough Tabs 2 tab PO TID PRN (Reason: Cough) RF: 0 metoprolol succinate 200 mg tablet extended release 24 hr 200 mg PO DAILY RF: 0 Changed furosemide 40 mg tablet 40 mg PO DAILY PRN (Reason: Edema) Qty: 0 RF: 0 Discharge Orders: Discharge Order (Routine); Ordered 04/22/20 Ordered By: Berny Wright Other Ambulatory Orders: DME: Oxygen (Order) Location: None Selected Ordered By: Berny Wright DME: Oxygen (Order) Location: None Selected Ordered By: Berny Wright Referrals: [facility] [place], [place] [Outside] Gavino Ware M.D [Physician] - 1 week Nirav Parra DO [Primary Care Provider] - 4-7 days (Please set up a telehealth visit if possible within 48-72 hours. Otherwise please follow-up within 7 days or if otherwise instructed by your primary care provider.) Discharge Diet: Cardiac Discharge Activity: Increase activity as tolerated Activity Restrictions/Additional Instructions: Please check and write down your heart rate 3 times daily. Please follow-up with cardiology for further adjustments of your medications. If your heart rate increases, and stays persistently above 110, or drops down below 60 please contact your real estate underwriter or primary care provider. If you have any unusual severe symptoms any persistent chest pain, any worsening shortness of breath, severe fatigue, fainting, any blue color change of lips or fingers, or any other please call an ambulance. Please maintain isolation until at least April 30, at that point if for at least 24 hours you have no fever, and no other symptoms, such as muscle aches, sweats, headache, nausea, vomiting, chills, and have improving cough, isolation may be discontinued. Please consult with your primary care doctor in case of any questions. Due to some incidentally noted enlargement of lymph nodes on chest imaging, thought to be due to inflammation from coronavirus, please discuss with your primary care doctor arrangement for follow-up to make sure that this resolves. Discharge Attestations Time Spent in Discharge Care*: greater than 30 min Quality Metrics Clinical Quality Measures During this hospital stay, did patient experience: None Coding Level of Care Code Acute Trimmer Press Clippings for g Fwd Diagnoses Paroxysmal atrial fibrillation with RVR I48.0 Pneumonia due to COVID-19 virus U07.1; J12.89 Hypoxia R09.02 Elevated d-dimer R79.89 Rhabdomyolysis M62.82 Mediastinal lymphadenopathy R59.0
== END 2020-04-22 17:00 | disposition home or self-care (01) | DRG 177 ==
LOC: ER 09:23 → ICU 14:56
PROVIDERS: Family Medicine; Admitting Provider Internal Medicine; PCP Internal Medicine; Visit Provider Internal Medicine
DX: U07.1 COVID-19 (principal); J12.89 Other viral pneumonia; I13.0 Hypertensive heart and chronic kidney disease with heart failure and stage 1 through stage 4 chronic kidney disease, or unspecified chronic kidney disease; Z68.44 Body mass index [BMI] 60.0-69.9, adult; I42.9 Cardiomyopathy, unspecified; M62.82 Rhabdomyolysis; N18.9 Chronic kidney disease, unspecified; I50.9 Heart failure, unspecified; I48.0 Paroxysmal atrial fibrillation; Z95.810 Presence of automatic (implantable) cardiac defibrillator; I87.2 Venous insufficiency (chronic) (peripheral); E78.5 Hyperlipidemia, unspecified; I83.009 Varicose veins of unspecified lower extremity with ulcer of unspecified site; E66.9 Obesity, unspecified; G47.33 Obstructive sleep apnea (adult) (pediatric); Z79.01 Long term (current) use of anticoagulants; Z87.891 Personal history of nicotine dependence; R59.0 Localized enlarged lymph nodes; Z79.82 Long term (current) use of aspirin
CPT/HCPCS: 12345; 36415; 36600; 71045; 71275; 80053; 82550; 82803; 83605; 83615; 83735; 84145; 84484; 85025; 85378; 85384; 86140; 93005; 94664; 96375; 99284; J0282; J1100; J3490; J3535; J7060; Q9967

== ENCOUNTER 2020-04-25 11:52 | Emergency (ER) | payer MEDICARE, OTHER, SELFPAY ==
--- NOTE | 2020-04-25 12:02 | XR_ITS ---
WS: [id number] Portable AP upright chest, Clinical Data: cp Comparison: Portable chest, 04/20/2020. Findings: The heart remains enlarged. The permanent pacemaker is in the same position. No nodules, ma sses or effusions are seen. The pulmonary vascularity is not remarkable. No pneumonia or pneumothorax is seen. XR/XR chest 1V portable [id number] Impression: Cardiomegaly.
[2020-04-25 12:03] VITALS: BP 121/68; PULSE 116; RESP 20; TEMP 37.7; O2SAT 94; BMI 36.1
--- NOTE | 2020-04-25 12:19 | ECG_ITS ---
[facility] Test Date: 2020-04-25 Pat Name: Harry Miles Department: Room: Gender: Male Dispatcher [place]: : 1960 Requested By: Rigoberto Connor Order Number: [id number] Tracy MD: Gavino Ware M.D. Measurements Intervals Fence Rate: 107 P: AR: -1 QRS: -34 QRSD: 109 T: 121 QT: 341 QTc: 456 Interpretive Statements ATRIAL FIBRILLATION WITH RAPID VENTRICULAR RESPONSE WITH ABERRANT CONDUCTION OR VENTRICULAR PREMATURE COMPLEXES POSSIBLE ANTERIOR MYOCARDIAL INFARCTION , PROBABLY OLD [30 ms Q WAVE IN V3/V4, OR R < 0.2 mV IN V4] INFERIOR MYOCARDIAL INFARCTION , PROBABLY OLD [40+ ms Q WAVE AND/OR ST/T ABNORMALITY IN II/aVF] MODERATE T-WAVE ABNORMALITY, CONSIDER LATERAL ISCHEMIA [-0.1+ mV T WAVE IN I/aVL/V5/V6] Compared to ECG 04/20/2020 17:30:39 Ventricular premature complex(es) now present T-wave abnormality now present Possible ischemia now present Myocardial infarct finding still present Electronically Signed On 04-25-2020 16:09:43 STRATEGIC PARTNER DEVELOPMENT MANAGER by Gavino Ware M.D. [id number]
--- NOTE | 2020-04-25 12:23 | ED_ITS ---
HPI - SOB/Dyspnea General: Chief Complaint: Shortness of Breath/Dyspnea Stated Complaint: L SIDED PAIN, WORSE W/BREATHING Time Seen by Provider: 04/25/20 12:17 History of Present Illness: HPI Narrative: Patient presents here by POV with complaint of shortness of breath and chest pain that goes from the front of his chest to the back with deep inspiration that started at 0 700 this morning. Patient has a pain is still present has not improved. Feels slightly short of breath. Does have slight fever. Is 20 days post positive Covid test. Does not have a productive cough. MD elicited complaint: shortness of breath, cough, pain with inspiration and chest pain Pertinent past history: COPD and other (Atrial fib) Onset (ago): hour(s) Context: recent illness (Covid) Timing: constant Severity: moderate Exacerbating factors: coughing and inspiration Relieving factors: rest, upright position and other (Shallow breathing) Known history of: COPD and other (A. fib) Associated symptoms: Reports chest pain and cough; Deny abdominal pain, extremity pain, fever(s), nausea or vomiting Treatment prior to arrival: none Review of Systems Const: Denies: fever(s), chills or body aches Eyes: Denies: change in vision or blurry vision ENMT: Denies: throat pain or nasal congestion Card: Reports: chest pain; Denies: dyspnea on exertion Resp: Reports: dyspnea, non-productive cough and pain on inspiration; Denies: productive cough GI: Denies: abdominal pain, nausea or vomiting : Denies: difficulty urinating Musc: Denies: extremity pain Skin/Breast: Denies: rash Neuro: Denies: headache(s) Psych: Denies: anxiety or depression Amandeep/Lymph: Denies: easy bruising PFSH ED PFSH: Medical History (Updated 04/21/20 @ 12:14 by David Atwood DO) Anticoagulation adequate with anticoagulant therapy Xarelto Atrial fibrillation Cardiomyopathy CHF (congestive heart failure) Dyslipidemia HTN (hypertension) Obesity MIMI on CPAP Sleep apnea Venous insufficiency Surgical History (Updated 04/20/20 @ 16:37 by Berny Wright MD) H/O hand surgery H/O local excision of skin lesion History of cardiac radiofrequency ablation S/P ICD (internal cardiac defibrillator) procedure Family History (Updated 04/20/20 @ 16:36 by Berny Wright MD) Other No significant family history Social History Smoking and tobacco status: former smoker Alcohol intake: current Alcohol intake frequency: holidays/special occasions only Household members: spouse Marital status: service: No Current occupational status: disabled Physical Exam Const: COMMON NORMALS: no acute distress, patient oriented x3 and well nourished HENMT: COMMON NORMALS: normocephalic HEAD & SCALP: normal to inspection and normocephalic FACE & SINUS: normal facial exam Eye: COMMON NORMALS: conjunctivae normal GENERAL EYE: appearance normal, both eyes and all related structures CONJUNCTIVA: Yes conjunctivae normal Neck/C-Spine: COMMON NORMALS: no JVD Chest: COMMONS NORMALS: normal inspection of the chest Resp: COMMON NORMALS: normal respiratory effort and clear to auscultation bilaterally AUSCULTATION: clear to auscultation bilaterally Cardio: COMMON NORMALS: no JVD, regular rate and regular rhythm RATE: reg ular rate RHYTHM: regular rhythm GI: COMMON NORMALS: Normal to inspection, nondistended, normoactive bowel sounds present Extremity: COMMON NORMALS: normal to inspection and full ROM Neuro: COMMON NORMALS: patient oriented x3 Course Vital Signs: Vital signs: Vital Signs Temperature 99.9 F H 04/25/20 12:03 Pulse Rate 116 H 04/25/20 12:03 Respiratory Rate 20 H 04/25/20 12:03 Blood Pressure 121/68 04/25/20 12:03 Pulse Oximetry 94 04/25/20 12:03 Discharge Plan Discharge Prescriptions: No Action amiodarone 200 mg tablet 200 mg PO DAILY RF: 0 aspirin [Adult Low Dose Aspirin] 81 mg tablet,delayed release (DR/EC) 81 mg PO DAILY RF: 0 Xarelto 20 mg tablet 20 mg PO DAILY RF: 0 nitroglycerin [Nitrostat] 0.4 mg tablet, sublingual 0.4 mg SUBLINGUAL Q5M PRN (Reason: Chest Pain) RF: 0 sacubitril-valsartan [Entresto] 49-51 mg tablet 1 tab PO BID Qty: 60 RF: 4 ibuprofen 200 mg Tablet 400 mg PO PRN RF: 0 Singulair 10 mg Tablet 10 mg PO DAILY PRN (Reason: Cough) RF: 0 Cough Tabs 2 tab PO TID PRN (Reason: Cough) RF: 0 metoprolol succinate 200 mg tablet extended release 24 hr 200 mg PO DAILY RF: 0 Ventolin HFA 90 mcg/actuation Hfa Aerosol Inhaler 2 puff inhalation Q4H.RESPIRATORY PRN (Reason: Shortness Of Breath) Qty: 8.5 RF: 0 furosemide 40 mg tablet 40 mg PO DAILY PRN (Reason: Edema) Qty: 0 RF: 0 Coding Level of Care Code ED Windows Systems Administrator for Chg Fwskip
[2020-04-25 12:59] LABS: Basophils % 0.3 %; Hematocrit 43.5 % (42.0-52.0); Hemoglobin 13.8 g/dL (11.7-16.6); Lymphocytes # 0.4 10^3/uL (0.8-4.8); Lymphocytes % 2.3 %; Mean Corpuscular HGB Conc 31.7 g/dL (30.0-36.0); Mean Corpuscular Hemoglobin 31.9 pg (28.0-34.0); Mean Corpuscular Volume 100.5 fL (80-94); Mean Platelet Volume 11.1 fL (7.4-10.4); Monocytes # 0.8 10^3/uL (0.2-0.9); Neutrophils # 14.13 10^3/uL (1.8-7.7); Neutrophils % 91.8 %; Nucleated Red Blood Cells % 0 %; Platelet Count 188 10^3/cmm (130-400); Red Blood Count 4.33 10^6/uL (4.1-5.3); Red Cell Distribution Width 13.2 % (12.1-15.1); White Blood Count 15.4 10^3/uL (4.0-10.0)
[2020-04-25 13:24] LABS: INR 1.35 (0.8-1.2)
[2020-04-25 13:31] LABS: D Dimer 0.82 ug/mIFEU (0-0.59)
--- NOTE | 2020-04-25 13:37 | CTR_ITS ---
PROCEDURE INFORMATION: Exam: CT Angiography Chest With Contrast Exam date and time: 04/25/2020 3:13 PM Age: 59 years old Clinical indication: Shortness of breath; Additional info: Chest pain, SOB TECHNIQUE: Imaging protocol: Computed tomographic angiography of the chest with intravenous contrast. 3D rendering (Not supervised by radiologist): MIP and/or 3D reconstructed images were created by the technologist. Radiation optimization: All CT scans at this facility use at least one of these dose optimization techniques: automated exposure control; mA and/or kV adjustment per patient size (includes targeted exams where dose is matched to clinical indication); or iterative reconstruction. Contrast material: OMNI 350; Contrast volume: 150 ml; Contrast route: INTRAVENOUS (IV); COMPARISON: CT angio chest PE protcl [id number] 04/20/2020 11:33 AM RADIATION DOSE METRICS: Total DLP (mGy-cm): 2736.35 FINDINGS: Tubes, catheters and devices: Left approach pacemaker is seen. Pulmonary arteries: Normal. No pulmonary emboli. Aorta: Unremarkable. No aortic aneurysm. No aortic dissection. Lungs: 1.3 cm ground-glass opacification in the left upper lobe. Pleural space: Unremarkable. No pneumothorax. No pleural effusion. Heart: Cardiomegaly. Lymph nodes: Unremarkable. No enlarged lymph nodes. Bones/joints: Unremarkable. No acute fracture. Soft tissues: Unremarkable. CT/CT angio chest PE protcl [id number] IMPRESSION: 1.3 cm ground-glass opacification in the left upper lobe. Etiology infectious/inflammatory. Findings new when compared to prior CT of 04/20/2020. No pulmonary embolism. Radiation Dose CTDIVOL = (mGy): DLP = 2736.35 (mGy-cm)
[2020-04-25 14:14] LABS: Troponin(5th) Baseline 10 ng/L (0-15)
--- NOTE | 2020-04-25 14:19 | ECG_ITS ---
[facility] Test Date: 2020-04-25 Pat Name: Harry Miles Department: Room: Gender: Male Tab Cutter: : 1960 Requested By: Rigoberto Connor Order Number: [id number] Tracy MD: Gavino Ware M.D. Measurements Intervals [place] Rate: 120 P: NE: -1 QRS: -34 QRSD: 99 T: 136 QT: 319 QTc: 452 Interpretive Statements ATRIAL FIBRILLATION WITH RAPID VENTRICULAR RESPONSE POSSIBLE ANTERIOR MYOCARDIAL INFARCTION , PROBABLY OLD [30 ms Q WAVE IN V3/V4, OR R < 0.2 mV IN V4] INFERIOR MYOCARDIAL INFARCTION , PROBABLY OLD [40+ ms Q WAVE AND/OR ST/T ABNORMALITY IN II/aVF] MODERATE T-WAVE ABNORMALITY, CONSIDER LATERAL ISCHEMIA [-0.1+ mV T WAVE IN I/aVL/V5/V6] Compared to ECG 04/25/2020 12:15:24 Aberrant conduction of supraventricular beat(s) no longer present Ventricular premature complex(es) no longer present Myocardial infarct finding still present T-wave abnormality still present Possible ischemia still present Electronically Signed On 04-25-2020 17:25:15 BOBBIN MARKER by Gavino Ware M.D. [id number]
[2020-04-25 14:31] LABS: Alanine Aminotransferase 30 U/L (0-41); Albumin Level 3.7 g/dL (3.5-5.2); Alkaline Phosphatase 73 IU/L (40-130); Aspartate Amino Transferase 19 U/L (0-40); Blood Urea Nitrogen 17 mg/dL (8-23); Calcium 9.1 mg/dL (8.5-10.5); Carbon Dioxide 25 mmol/L (22-29); Chloride 99 mmol/L (98-107); Globulin 3.8 g/dL (1.3-4.6); Glomerular Filtration Rate 76.2 mL/min (90-130); Glucose 125 mg/dL (65-115); Osmolality Calculated 285 mOsm/kg (285-295); Sodium 136 mmol/L (136-145); Total Bilirubin 0.4 mg/dL (0.15-1.2); Total Protein 7.5 g/dL (6.6-8.7)
[2020-04-25 14:32] LABS: Lactate (Lactic Acid level) 2.3 mmol/L (0.5-2.2)
[2020-04-25 14:48] LABS: Anion Gap 16.1 (5-19)
[2020-04-25 14:49] LABS: Potassium 4.1 mmol/L (3.5-5.1)
[2020-04-25] MEDS: iohexol 350 mg/mL 100 mL Btl IV ×2 (15:42)
[2020-04-25 16:21] VITALS: PULSE 103; RESP 22; O2SAT 93
== END 2020-04-25 16:22 | disposition home or self-care (01) ==
PROVIDERS: Emergency Provider Nurse Practitioner Family; PCP Internal Medicine
DX: R06.02 Shortness of breath (principal); Z79.82 Long term (current) use of aspirin; I48.91 Unspecified atrial fibrillation; I11.0 Hypertensive heart disease with heart failure; I50.9 Heart failure, unspecified; E78.5 Hyperlipidemia, unspecified; Z87.891 Personal history of nicotine dependence
CPT/HCPCS: 12345; 36415; 71045; 71275; 80053; 83605; 84484; 85025; 85378; 85610; 93005; 96374; 96375; 99283; J2930; Q9967

== ENCOUNTER 2020-05-03 10:18 | Inpatient (IN) | payer MEDICARE, OTHER, SELFPAY ==
[2020-05-03] VITALS (37 sets, daily range): BP systolic 87–158; BP diastolic 52–114; PULSE 117–156; RESP 18–30; TEMP 36.7–37.2; O2SAT 86–100; BMI 62.7
--- NOTE | 2020-05-03 10:26 | W.ED.GIBLEED ---
HPI - GI Bleed General: Chief complaint: GI Bleed Stated complaint: BLOODY EMESIS/ DARK STOOLS/ POST COVID Time Seen by Provider: 05/03/20 10:26 Source: patient and EMS Mode of arrival: EMS Limitations: no limitations History of Present Illness: HPI Narrative: 59-year-old male who states that he has been having vomiting blood along with dark tarry stools. He is on blood thinner. He states that he has felt weak. Patient is out of Covid quarantine over the last 2 weeks. He states he still been having generalized weakness. He takes blood thinners for A. fib. He denies any fever. He denies any abdominal pain. Associated symptoms: Reports nausea and vomiting; Denies chills, easy bruising, fever(s), headache(s) or rash Review of Systems Const: Denies: fever(s), chills, body aches or change in appetite Eyes: Denies: blurry vision or eye discomfort ENMT: Denies: throat pain or dental pain Card: Denies: chest pain Resp: Denies: dyspnea GI: Reports: nausea, vomiting and melena : Denies: dysuria Musc: Reports: muscle weakness Skin/Breast: Denies: rash Neuro: Denies: headache(s) Psych: Denies: depression Amandeep/Lymph: Denies: easy bruising All/Imm: Denies: urticaria PFSH ED PFSH: Medical History (Updated 05/03/20 @ 14:56 by Agnes Duran MD) Anticoagulation adequate with anticoagulant therapy Xarelto Atrial fibrillation Cardiomyopathy CHF (congestive heart failure) Dyslipidemia HTN (hypertension) Hypoxia Obesity MIMI on CPAP Sleep apnea Venous insufficiency Surgical History (Updated 05/03/20 @ 14:41 by Niraj Vickers MD) H/O hand surgery H/O local excision of skin lesion Right lower leg skin biopsy -- benign History of cardiac radiofrequency ablation History of left inguinal hernia repair History of orchiectomy, unilateral Left -- benign adenomatoid tumor S/P ICD (internal cardiac defibrillator) procedure Family History (Updated 04/20/20 @ 16:36 by Berny Wright MD) Other No significant family history Social History Smoking and tobacco status: former smoker Alcohol intake: current Alcohol intake frequency: holidays/special occasions only Household members: spouse Marital status: service: No Current occupational status: disabled Physical Exam Const: COMMON NORMALS: no acute distress and patient oriented x3 GENERAL APPEARANCE: ill appearing HENMT: COMMON NORMALS: normocephalic and atraumatic HEAD & SCALP: normocephalic and atraumatic Eye: COMMON NORMALS: Equal, round and reactive pupils present and EOMs intact bilaterally PUPIL: Yes Equal, round and reactive pupils present Neck/C-Spine: COMMON NORMALS: full ROM and supple Chest: COMMONS NORMALS: normal inspection of the chest and normal palpation of entire chest wall Resp: COMMON NORMALS: normal respiratory effort, No retractions, No use of accessory muscles and clear to auscultation bilaterally AUSCULTATION: clear to auscultation bilaterally Cardio: COMMON NORMALS: No murmurs present (Cardio) RATE: tachycardic RHYTHM: abnormal rhythm irregularly irregular GI: COMMON NORMALS: Normal to inspection, nondistended, normoactive bowel sounds present, Soft to palpation, non-tender and no masses PALPATION: Yes Soft to palpation : OTHER: hemocult positive Extremity: COMMON NORMALS: normal to inspection and full ROM Neuro: COMMON NORMALS: patient oriented x3, moves all extremities and no focal motor deficits Psych: COMMON NORMALS: mental status grossly normal, Normal thought process present and cooperative THOUGHT PROCESS: Normal thought process present Skin: COMMON NORMALS: no rashes or lesions noted and no wounds GENERAL SKIN EXAM: no rashes or lesions noted Course Vital Signs: Vital signs: Vital Signs Temperature 98.4 F 05/03/20 10:26 Pulse Rate 122 H 05/03/20 14:50 Respiratory Rate 27 H 05/03/20 14:50 Blood Pressure 101/69 05/03/20 14:50 Pulse Oximetry 97 05/03/20 14:50 MDM - GI Bleed MDM Narrative: Medical decision making narrative: Harry presents here with upper GI bleed. Patient was hypotensive when he first arrived his blood pressure is much improved now to 103/61. He was dehydrated as well. His pressure improved IV fluids. He is not seem to have a massive GI bleed as his hemoglobin has been stable. Patient started on Protonix. He does have A. fib but will continue to hydrate which is improving his heart rate. Lab Data: Labs: Lab Results 05/03/20 05/03/20 05/03/20 Range/Units 10:55 10:55 10:55 WBC 16.5 H (4.0-10.0) 10^3/ uL RBC 3.64 L (4.1-5.3) 10^6/u L Hgb 11.8 (11.7-16.6) g/dL Hct 36.2 L (42.0-52.0) % MCV 99.5 H (80-94) fL MCH 32.4 (28.0-34.0) pg MCHC 32.6 (30.0-36.0) g/dL RDW 14.4 (12.1-15.1) % Plt Count 71 L (130-400) 10^3/c mm MPV 12.3 H (7.4-10.4) fL Neut % (Auto) 93.2 % Lymph % (Auto) 2.2 % Angelina % (Auto) 3.3 % Eos % (Auto) 0.0 % Baso % (Auto) 0.4 % Neut # (Auto) 15.33 H (1.8-7.7) 10^3/u L Lymph # (Auto) 0.4 L (0.8-4.8) 10^3/u L Angelina # (Auto) 0.6 (0.2-0.9) 10^3/u L Eos # (Auto) 0.0 (0.0-0.8) 10^3/u L Baso # (Auto) 0.1 (0.0-0.1) 10^3/u L Nucleated RBC % (a uto) 0 % Nucleated RBCs # 0.0 /100WBC PT 25.50 H (12.1-14.9) SECO NDS INR 2.23 H (0.8-1.2) Sodium 135 L (136-145) mmol/L Potassium 4.6 (3.5-5.1) mmol/L Chloride 102 (98-107) mmol/L Carbon Dioxide 21 L (22-29) mmol/L Anion Gap 16.6 (5-19) BUN 35 H (8-23) mg/dL Creatinine 1.4 H (0.7-1.2) mg/dL GFR Calculation 51.7 L (90-130) mL/min Glucose 112 (65-115) mg/dL Calculated Osmolal ity 289 (285-295) mOsm/k g Lactate (0.5-2.2) mmol/L Calcium 7.9 L (8.5-10.5) mg/dL Total Bilirubin 1.0 (0.15-1.2) mg/dL AST 34 (0-40) U/L ALT 57 H (0-41) U/L Alkaline Phosphata se 109 (40-130) IU/L Total Protein 5.8 L (6.6-8.7) g/dL Albumin 2.3 L (3.5-5.2) g/dL Globulin 3.5 (1.3-4.6) g/dL 05/03/20 05/03/20 Range/Units 11:48 13:39 WBC (4.0-10.0) 10^3/ uL RBC (4.1-5.3) 10^6/u L Hgb 10.6 L (11.7-16.6) g/dL Hct 33.4 L (42.0-52.0) % MCV (80-94) fL MCH (28.0-34.0) pg MCHC (30.0-36.0) g/dL RDW (12.1-15.1) % Plt Count (130-400) 10^3/c mm MPV (7.4-10.4) fL Neut % (Auto) % Lymph % (Auto) % Angelina % (Auto) % Eos % (Auto) % Baso % (Auto) % Neut # (Auto) (1.8-7.7) 10^3/u L Lymph # (Auto) (0.8-4.8) 10^3/u L Angelina # (Auto) (0.2-0.9) 10^3/u L Eos # (Auto) (0.0-0.8) 10^3/u L Baso # (Auto) (0.0-0.1) 10^3/u L Nucleated RBC % (a uto) % Nucleated RBCs # /100WBC PT (12.1-14.9) SECO NDS INR (0.8-1.2) Sodium (136-145) mmol/L Potassium (3.5-5.1) mmol/L Chloride (98-107) mmol/L Carbon Dioxide (22-29) mmol/L Anion Gap (5-19) BUN (8-23) mg/dL Creatinine (0.7-1.2) mg/dL GFR Calculation (90-130) mL/min Glucose (65-115) mg/dL Calculated Osmolal ity (285-295) mOsm/k g Lactate 1.6 (0.5-2.2) mmol/L Calcium (8.5-10.5) mg/dL Total Bilirubin (0.15-1.2) mg/dL AST (0-40) U/L ALT (0-41) U/L Alkaline Phosphata se (40-130) IU/L Total Protein (6.6-8.7) g/dL Albumin (3.5-5.2) g/dL Globulin (1.3-4.6) g/dL Imaging Data^: CXR: Radiologist's impression: Reason: sob [employer] [address] [place] [address] XRay Report Signed Patient: Harry Miles Unit #: [id number] : 1960 Age/Sex: 59 / M ADM Date: 05/03/20 Loc: ER Room/Bed: Attending Dr: Ordering Provider/Ordering MD: Agnes Duran MD Date of Service: 05/03/20 Procedure(s): XR chest 1V portable [id number] Accession Number(s): [id number] Report Number: [id number] WS: [id number] Exam: XR chest 1V portable [id number] Date/Time of Exam: 05/03/2020 10:39 AM Reason For Exam: sob Comparison 04/25/2020. The heart is enlarged. Increased pulmonary vascularity. No pleural effusions. No consolidating infiltrates. A permanent cardiac pacer superimposes the left chest. XR/XR chest 1V portable [id number] IMPRESSION: 1. Cardiac enlargement with the increased pulmonary vascularity. Some degree of mild cardiac decompensation is considered likely. CT Abd/Pel: Radiologist's impression: [place] [address] CT Scan Report Signed Patient: Harry Miles Unit #: [id number] : 1960 Age/Sex: 59 / M ADM Date: 05/03/20 Loc: ER Room/Bed: Attending Dr: Ordering Provider/Ordering MD: Agnes Duran MD Date of Service: 05/03/20 Procedure(s): CT angio chest w abd pel w con Accession Number(s): [id number] Report Number: [id number] WS: [id number] CTA CHEST WITH CT ABDOMEN AND PELVIS. HISTORY: Short of breath with chest pain. Bloody emesis and dark stools. TECHNIQUE: CT angiogram is performed through the chest. Additional imaging is performed through the abdomen and pelvis with IV contrast. Sagittal and coronal reformats have been submitted. MIP imaging also reviewed. All CT scans at [facility] use at least one of these dose optimization techniques: automated exposure control; mA and/or kV adjustment per patient size (includes targeted exams where dose is matched to clinical indication); or iterative reconstruction. Contrast: Visipaque 150 cc IV. DLP: 2828.73 mGy.cm COMPARISON: 04/25/2020 Chest CTA: Suboptimal opacification of the pulmonary arteries. In part this is due to cardiomegaly and decreased output of the heart and body habitus. Centrally there is no pulmonary embolism. Beyond the lobar branches the opacification is significantly limited. Pulmonary artery is top normal size. There is no RIGHT heart strain. Moderate enlargement of the heart with a small pericardial effusion. The pericardial effusion has increased since the prior study. Bilateral scattered pulmonary opacifications with a peripheral distribution and basilar distribution may be related to Covid exposure and pneumonia. These opacifications are more prominent as compared to 04/25/2020. Mild dependent changes at the lung bases. Dual lead LEFT subclavian pacer wires are noted. Gynecomastia. Mediastinal and hilar prominent lymph nodes are probably reactive. Small hiatal hernia. Abdomen CT: Scattered hypodensities in the liver are too small to characterize and probably represent small cysts. Gallbladder and pancreas and spleen are negative. No adrenal mass. Normal enhancement of each kidney. There is no obstruction. No solid mass or calcifications. Mild atherosclerosis abdominal aorta. No free fluid or adenopathy. No GI tract obstruction. Appendix is not identified, no evidence for diverticulitis or diverticulosis. Pelvic CT: No free fluid. Minimally distended urinary bladder. Increase in the thoracic kyphosis. Mild disc space narrowing and small endplate osteophytes. No lumbar or thoracic spine fractures. CT/CT angio chest w abd pel w con IMPRESSION: 1. No central pulmonary emboli. Limited opacification of the pulmonary arteries beyond the lobar branches. 2. Increase in the size and number of scattered pulmonary opacifications since 04/25/2020. Distribution of opacifications can be seen with Covid 19. 3. Small but new pericardial effusion. 4. Moderate cardiomegaly. 5. No acute abdominal or pelvic abnormalities. EKG Data^: EKG 1: Attestation: I personally reviewed and interpreted this EKG as follows: EKG interpretation date: 05/03/20 EKG interpretation time: 10:54 Interpretation: A. fib heart rate [address] or T wave abnormalities QRS 106 QTc 415 Critical Care Time Critical Care Time: Critical Care Time: Yes Total Critical Care Time: 35 Attestation: This case had a high probability of a clinically significant, sudden, or life threatening deterioration of this patient's condition which required my full and direct attention, intervention and personal management. Discharge Plan Discharge Patient Disposition: Admitted As Inpatient Admit Provider: Niraj Vickers Clinical Impression: Acute upper GI bleed, Atrial fibrillation Condition: Stable Coding Level of Care Code ED Manufacturing Quality Inspector for Chg Fwd Exam Comprehensive
--- NOTE | 2020-05-03 10:39 | ECG_ITS ---
[facility] Test Date: 2020-05-03 Pat Name: Harry Miles Department: Room: Gender: Male Supply Chain Tech: : 1960 Requested By: Agnes Druan Order Number: [id number] Tracy MD: Taye Conner M.D. Measurements Intervals [place] Rate: 135 P: PA: QRS: -16 QRSD: 106 T: 105 QT: 336 QTc: 504 Interpretive Statements ATRIAL FIBRILLATION WITH RAPID VENTRICULAR RESPONSE ANTERIOR MYOCARDIAL INFARCTION , PROBABLY OLD [40+ ms Q WAVE AND/OR ST/T ABNORMALITY IN V3/V4] INFERIOR MYOCARDIAL INFARCTION , PROBABLY OLD [40+ ms Q WAVE AND/OR ST/T ABNORMALITY IN II/aVF] Compared to ECG 04/25/2020 14:12:28 T-wave abnormality no longer present Possible ischemia no longer present Myocardial infarct finding still present Electronically Signed On 05-03-2020 22:00:22 PAPER SORTER AND COUNTER by Taye Conner M.D. [id number]
--- NOTE | 2020-05-03 10:39 | XR_ITS ---
WS: [id number] Exam: XR chest 1V portable [id number] Date/Time of Exam: 05/03/2020 10:39 AM Reason For Exam: sob Comparison 04/25/2020. The heart is enlarged. Increased pulmonary vascularity. No pleural effusions. No consolidating infil trates. A permanent cardiac pacer superimposes the left chest. XR/XR chest 1V portable [id number] IMPRESSION: 1. Cardiac enlargement with the increased pulmonary vascularity. Some degree of mild cardiac decompensation is considered likely.
[2020-05-03] MEDS: pantoprazole 40 mg SDV 80 MG IVP (11:05)
[2020-05-03 11:06] LABS: Basophils # 0.1 10^3/uL (0.0-0.1); Basophils % 0.4 %; Hematocrit 36.2 % (42.0-52.0); Hemoglobin 11.8 g/dL (11.7-16.6); Lymphocytes # 0.4 10^3/uL (0.8-4.8); Lymphocytes % 2.2 %; Mean Corpuscular HGB Conc 32.6 g/dL (30.0-36.0); Mean Corpuscular Hemoglobin 32.4 pg (28.0-34.0); Mean Corpuscular Volume 99.5 fL (80-94); Mean Platelet Volume 12.3 fL (7.4-10.4); Monocytes # 0.6 10^3/uL (0.2-0.9); Monocytes % 3.3 %; Neutrophils # 15.33 10^3/uL (1.8-7.7); Neutrophils % 93.2 %; Nucleated Red Blood Cells % 0 %; Platelet Count 71 10^3/cmm (130-400); Red Blood Count 3.64 10^6/uL (4.1-5.3); Red Cell Distribution Width 14.4 % (12.1-15.1); White Blood Count 16.5 10^3/uL (4.0-10.0)
[2020-05-03] MEDS: pantoprazole 40 MG in sodium chloride 0.9% (plus) 100 ML 20 MG IV ×2 (11:21→17:32)
[2020-05-03] MEDS: sodium chloride 0.9% 1,000 ML 999 ML IV (11:21)
[2020-05-03 11:23] LABS: INR 2.23 (0.8-1.2)
[2020-05-03 11:29] LABS: Alanine Aminotransferase 57 U/L (0-41); Albumin Level 2.3 g/dL (3.5-5.2); Alkaline Phosphatase 109 IU/L (40-130); Anion Gap 16.6 (5-19); Aspartate Amino Transferase 34 U/L (0-40); Blood Urea Nitrogen 35 mg/dL (8-23); Calcium 7.9 mg/dL (8.5-10.5); Carbon Dioxide 21 mmol/L (22-29); Chloride 102 mmol/L (98-107); Globulin 3.5 g/dL (1.3-4.6); Glomerular Filtration Rate 51.7 mL/min (90-130); Glucose 112 mg/dL (65-115); Osmolality Calculated 289 mOsm/kg (285-295); Potassium 4.6 mmol/L (3.5-5.1); Sodium 135 mmol/L (136-145); Total Protein 5.8 g/dL (6.6-8.7)
--- NOTE | 2020-05-03 11:37 | CT_ITS ---
WS: [id number] CTA CHEST WITH CT ABDOMEN AND PELVIS. HISTORY: Short of breath with chest pain. Bloody emesis and dark stools. TECHNIQUE: CT angiogram is performed through the chest. Additional imaging is performed through the a bdomen and pelvis with IV contrast. Sagittal and coronal reformats have been submitted. MIP imaging also reviewed. All CT scans at [facility] use at least one of these dose optimization tech niques: automated exposure control; mA and/or kV adjustment per patient size (includes targeted exams where dose is matched to clinical indication); or iterative reconstruction. Contrast: Visipaque 150 cc IV. DLP: 2828.73 mGy.cm COMPARISON: 04/25/2020 Chest CTA: Suboptimal opacification of the pulmonary arteries. In part this is due to cardiomegaly an d decreased output of the heart and body habitus. Centrally there is no pulmonary embolism. Beyond th e lobar branches the opacification is significantly limited. Pulmonary artery is top normal size. The re is no RIGHT heart strain. Moderate enlargement of the heart with a small pericardial effusion. The pericardial effusion has increased since the prior study. Bilateral scattered pulmonary opacificatio ns with a peripheral distribution and basilar distribution may be related to Covid exposure and pneum onia. These opacifications are more prominent as compared to 04/25/2020. Mild dependent changes at th e lung bases. Dual lead LEFT subclavian pacer wires are noted. Gynecomastia. Mediastinal and hilar prominent lymph nodes are probably reactive. Small hiatal hernia. Abdomen CT: Scattered hypodensities in the liver are too small to characterize and probably represent small cysts. Gallbladder and pancreas and spleen are negative. No adrenal mass. Normal enhancement o f each kidney. There is no obstruction. No solid mass or calcifications. Mild atherosclerosis abdomin al aorta. No free fluid or adenopathy. No GI tract obstruction. Appendix is not identified, no evidence for diverticulitis or diverticulosi s. Pelvic CT: No free fluid. Minimally distended urinary bladder. Increase in the thoracic kyphosis. Mild disc space narrowing and small endplate osteophytes. No lumba r or thoracic spine fractures. CT/CT angio chest w abd pel w con IMPRESSION: 1. No central pulmonary emboli. Limited opacification of the pulmonary arterie s beyond the lobar branches. 2. Increase in the size and number of scattered pulmonary opacifications since 04/25/2020. Distribution of opacifications can be seen with Covid 19. 3. Small but new pericardial effusion. 4. Moderate cardiomegaly. 5. No acute abdominal or pelvic abnormalities.
[2020-05-03] MEDS: iodixanol 320 mg/mL 100mL Btl IV ×2 (12:35)
[2020-05-03 13:45] LABS: Hematocrit 33.4 % (42.0-52.0); Hemoglobin 10.6 g/dL (11.7-16.6)
[2020-05-03 13:49] LABS: Lactate (Lactic Acid level) 1.6 mmol/L (0.5-2.2)
[2020-05-03] MEDS: sodium chloride 0.9% 500 ML 999 ML IV (14:14)
[2020-05-03 14:43] LABS: LAB Peripheral Smear Sent for Review
--- NOTE | 2020-05-03 15:02 | PC.NURSE ---
type and screen is delayed d/t processing
--- NOTE | 2020-05-03 15:38 | P.CONIM_ITS ---
Providers/Reason For Consult Consulting Physican/Specialty*: General Surgery Niraj Vickers MD Reason for Consult*: Heme positive stool, recent hematochezia. Attending Physician: Niraj Vickers MD Primary Care Provider: Nirav Parra DO History of Present Illness History of Present Illness Harry Miles is a 59 year old male who came to the emergency department today with some diarrhea and intermittent hematochezia that has been going on for 6-7 days. His stool was found to be Hemoccult positive in the emergency room. He has been on Xarelto for several years for history of atrial fibrillation. The emergency room physician indicated that the patient had been vomiting but he denies this. He says his stools have been a little dark at times but not black; they have been loose following an infection with Covid several weeks ago. He says when he gets somewhat prolonged episodes of diarrhea is not unusual for him to see some blood in his stool. He had a colonoscopy 5 years ago and says that some polyps were removed. He has never had to have an EGD and has never been diagnosed with peptic ulcer disease. He has not had any significant abdominal pain recently but says that when he eats, it goes right through me and I may get a little cramping here and there. The patient denies any NSAID use. He says he has been taking a little Tylenol at home on occasion. Review of Systems General: Reports: 10 or more systems reviewed and unremarkable except in HPI and below Const: Denies: fever(s) GI: Reports: abdominal pain ( Just very mild ), diarrhea and hematochezia; Denies: vomiting or hematemesis Meds/Allergies Home Medications and Allergies Home Medications Medication Instructions Recorded Confirmed Last Taken Type aspirin 81 mg tablet,delayed 81 mg PO DAILY tab 09/29/19 05/03/20 05/02/20 History release nitroglycerin 0.4 mg sublingual 0.4 mg SUBLINGUAL Q5M PRN 09/29/19 05/03/20 Unknown History tablet rivaroxaban 20 mg tablet 20 mg PO DAILY tab 09/29/19 05/03/20 05/02/20 History sacubitril 49 mg-valsartan 51 mg 1 tab PO BID #60 tab 02/09/20 05/03/20 05/03/20 Rx tablet montelukast [Singulair] 10 mg PO DAILY PRN 04/20/20 05/03/20 05/03/20 History albuterol sulfate [Ventolin HFA] 2 puff INHALATION Q4H.RESPIRATORY 04/22/20 05/03/20 04/25/20 Rx PRN #8.5 gm furosemide 40 mg PO DAILY PRN #0 tab 04/22/20 05/03/20 04/24/20 Rx amiodarone 200 mg tablet 200 mg PO Q12H #60 tab 05/01/20 05/03/20 05/03/20 Rx metoprolol tartrate 100 mg tablet 100 mg PO TID #180 tab 05/01/20 05/03/2005/03 Rx acetaminophen [Tylenol Extra 1,000 mg PO PRN 05/03/20 05/03/20 Unknown History Strength] dextromethorphan-guaifenesin 1 tab PO QID PRN 05/03/20 05/03/20 Unknown History [Chest Congestion Relief DM] Allergies Allergy/AdvReac Type Severity Reaction Status Date / Time No Known Allergies Allergy Verified 05/03/20 11:22 PFSH Acute PFSH: Medical History (Updated 05/03/20 @ 15:40 by Niraj Vickers MD) Anticoagulation adequate with anticoagulant therapy Xarelto Atrial fibrillation Cardiomyopathy CHF (congestive heart failure) Dyslipidemia History of colon polyps HTN (hypertension) Hypoxia Obesity MIMI on CPAP Sleep apnea Venous insufficiency Surgical History (Updated 05/03/20 @ 15:46 by Niraj Vickers MD) H/O hand surgery Left x2 --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 H/O local excision of skin lesion Right lower leg skin biopsy -- benign History of arthroscopic knee surgery Bilateral History of cardiac radiofrequency ablation Several History of left inguinal hernia repair History of orchiectomy, unilateral Left -- benign adenomatoid tumor S/P ICD (internal cardiac defibrillator) procedure Family History Other No significant family history Social History (Updated 05/03/20 @ 15:46 by Niraj Vickers MD) Smoking and tobacco status: former smoker Quit status (tobacco): has quit using tobacco Year quit tobacco: Around 2011 Former quit date comment: 100 to [id number] history prior to quitting Alcohol intake: current Alcohol intake frequency: holidays/special occasions only Household members: spouse Marital status: service: No Current occupational status: disabled Vitals/I&O/Wt Last Vital Signs Temp 98.4 F 05/03/20 10:26 Pulse 132 H 05/03/20 15:00 Resp 24 H 05/03/20 15:00 BP 103/61 05/03/20 15:15 Pulse Ox 86 L 05/03/20 15:00 Weight last 48 hrs Weight 425 lb Physical Exam Narrative: EXAM NARRATIVE: The patient was encountered in his room in the intensive care unit. He does not appear to be in any distress. The pupils seem equal. No carotid bruits are heard. The lungs are clear anteriorly. The heart is irregularly irregular. The abdomen is super obese but is soft and reveals minimal scattered tenderness. No obvious masses are palpated. The lower extremities show chronic changes of venous stasis distally with some mild edema. Neurologically the patient seems to be able to move all limbs to command. Data Micro: Micro: Microbiology 05/03/20 13:00 Blood Culture - Pr eliminary Blood SPECIMEN [facility] 05/03/20 10:55 Blood Culture - Pr eliminary Blood SPECIMEN [facility] A&P Assessment and plan (1) Hematochezia: The patient's stool has been a little bit dark at times but it does not sound like he has had any obvious changes of melena. He has been having some hematochezia with diarrhea over the past week. He is also been on Xarelto for s everal years. He adamantly denies any recent history of nausea or vomiting. He tells me he had a colonoscopy about 5 years ago but thinks some polyps were removed. I cannot find any history of that study being done at this hospital. I told him I would come talk to him tomorrow and see if he has any interest in proceeding with endoscopy after he gets further hydrated and his hemoglobin equilibrates, etc. Status: Acute (2) Diarrhea: Following his recent Covid infection. It sounds like this may be his primary issue. He has had some hematochezia from hemorrhoids in the past following episodes of diarrhea. Status: Acute Consult Attestations Medical Necessity Statement: See admitting service's notation. Coding Level of Care Code Acute Torch Operator for Alexandra Day Diagnoses Hematochezia K92.1 Diarrhea R19.7
[2020-05-03] MEDS: digoxin 250 mcg/ml INJ 2 mL IVP ×2 (16:11→19:43)
--- NOTE | 2020-05-03 16:12 | P.HP_ITS ---
Providers/Chief Complaint Admitting Physician: Berny Wright Primary Care Provider: Nirav Parra DO Chief Complaint: BLOODY EMESIS/ DARK STOOLS/ POST COVID History of Present Illness 59-year-old gentleman with recent admission for COVID-19 pneumonia, requiring small oxygen on discharge, with history of atrial fibrillation difficult to control, with history of cardioversion, on amiodarone, metoprolol, anticoagulation with Xarelto, status post ICD, with also chronic venous insufficiency of lower extremities, with chronic ulceration, HTN, HLD, morbid obesity, sleep apnea comes to the hospital after episode of melanous diarrhea. He denies hematemesis, however, since discharge from the hospital during last admission has had some persistent cough, and reports some mixing of bloody content in the sputum. Denies large amounts of blood or any sizable globs of clot. He denies any chest pain. CTA chest, as well as CT abdomen pelvis were performed in ER. No PE is noted. He reports having a colonoscopy probably about 5 years ago on which several polyps were removed. He denies taking any NSAIDs. He did receive a 3-day supply of Decadron on discharge from the [facility], but reports also came to ER 2 days later with shortness of breath and was given an additional supply of 60 mg prednisone for 5 days which he has just recently completed. And a course of azithromycin. He denies history of liver cirrhosis or gastric varices. He is noted to have thrombocytopenia with platelet level of 71,000. Leukocytosis of 16.5. Predominantly neutrophilic. Hemoglobin in the ER is 10.6 on recheck, initially 11.8, but he has received IV fluid boluses due to soft blood pressure on presentation. He reports he took all his medications this morning. Noted acute kidney injury, creatinine 1.4 with 0.9-1 at baseline. Sodium is 135, AST 57, calcium 7.9. He is noted in A. fib with RVR, heart rates in 130s. Review of Systems Const: Denies: fever(s), chills, body aches or malaise Eyes: Denies: change in vision or eye redness ENMT: Denies: throat pain, oral sores or ear or mastoid pain Card: Denies: chest pain, edema, pre-syncope or dyspnea on exertion Resp: Reports: productive cough (Persistent cough with some phlegm, also with some mixed in small amounts of); Denies: dyspnea or change in phlegm color GI: Reports: diarrhea and melena; Denies: abdominal pain, nausea, vomiting, constipation or hematochezia : Denies: flank pain, difficulty urinating, urinary frequency or hematuria Musc: Denies: back pain, joint swelling or joint redness Skin/Breast: Denies: rash, sores or new lesions Neuro: Denies: headache(s), numbness in extremities, weakness in extremities, dizziness, confusion or seizure-like activity Endo: Denies: polyuria or polydipsia Amandeep/Lymph: Denies: easy bleeding or purpura All/Imm: Denies: urticaria, throat swelling or tongue swelling Medications/Allergies Home Medications Medication Instructions Recorded Confirmed Last Taken Type aspirin 81 mg tablet,delayed 81 mg PO DAILY tab 09/29/19 05/03/20 05/02/20 History release nitroglycerin 0.4 mg sublingual 0.4 mg SUBLINGUAL Q5M PRN 09/29/19 05/03/20 Unknown History tablet rivaroxaban 20 mg tablet 20 mg PO DAILY tab 09/29/19 05/03/20 05/02/20 History sacubitril 49 mg-valsartan 51 mg 1 tab PO BID #60 tab 02/09/20 05/03/20 05/03/20 Rx tablet montelukast [Singulair] 10 mg PO DAILY PRN 04/20/20 05/03/20 05/03/20 History albuterol sulfate [Ventolin HFA] 2 puff INHALATION Q4H.RESPIRATORY 04/22/20 05/03/20 04/25/20 Rx PRN #8.5 gm furosemide 40 mg PO DAILY PRN #0 tab 04/22/20 05/03/20 04/24/20 Rx amiodarone 200 mg tablet 200 mg PO Q12H #60 tab 05/01/20 05/03/20 05/03/20 Rx metoprolol tartrate 100 mg tablet 100 mg PO TID #180 tab 05/01/20 05/03/20 05/03/20 Rx acetaminophen [Tylenol Extra 1,000 mg PO PRN 05/03/20 05/03/20 Unknown History Strength] dextromethorphan-guaifenesin 1 tab PO QID PRN 05/03/20 05/03/20 Unknown History [Chest Congestion Relief DM] Allergies Allergy/AdvReac Type Severity Reaction Status Date / Time No Known Allergies Allergy Verified 05/03/20 11:22 PFSH Acute PFSH: Medical History Anticoagulation adequate with anticoagulant therapy Xarelto Atrial fibrillation Cardiomyopathy CHF (congestive heart failure) Dyslipidemia History of colon polyps HTN (hypertension) Hypoxia Obesity MIMI on CPAP Sleep apnea Venous insufficiency Surgical History H/O hand surgery Left x2 --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 H/O local excision of skin lesion Right lower leg skin biopsy -- benign History of arthroscopic knee surgery Bilateral History of cardiac radiofrequency ablation Several History of left inguinal hernia repair History of orchiectomy, unilateral Left -- benign adenomatoid tumor S/P ICD (internal cardiac defibrillator) procedure Family History Other No significant family history Social History Smoking and tobacco status: former smoker Quit status (tobacco): has quit using tobacco Year quit tobacco: Around 2011 Former quit date comment: 100 to [id number] history prior to quitting Alcohol intake: current Alcohol intake frequency: holidays/special occasions only Household members: spouse Marital status: service: No Current occupational status: disabled Vitals/I&O/Wt Last Vital Signs Temp 98.1 F 05/03/20 15:35 Pulse 132 H 05/03/20 15:35 Resp 20 H 05/03/20 15:35 BP 103/61 05/03/20 15:35 Pulse Ox 93 05/03/20 15:35 Weight last 48 hrs Weight 192.777 kg Physical Exam Const: COMMON NORMALS: no acute distress, patient oriented x3 and alert NUTRITIONAL APPEARANCE: obese ORIENTATION/CONSCIOUSNESS: Yes awake OTHER: with him in the room. HENMT: COMMON NORMALS: oropharynx normal Neck/C-Spine: COMMON NORMALS: no JVD Resp: COMMON NORMALS: normal respiratory effort and clear to auscultation bilaterally AUSCULTATION: clear to auscultation bilaterally Cardio: COMMON NORMALS: no JVD, regular rhythm, S1 normal heart sound present, S2 normal heart sound present and No murmurs present (Cardio) RHYTHM: regular rhythm HEART SOUNDS: S1 normal heart sound present and S2 normal heart sound present GI: COMMON NORMALS: Normal to inspection, nondistended, normoactive bowel sounds present, Soft to palpation and non-tender PALPATION: Yes Soft to palpation Extremity: COMMON NORMALS: no joint enlargement and no pedal edema OTHER: Chronic venous stasis swelling of lower extremities, chronic ulceration Neuro: COMMON NORMALS: patient oriented x3 and moves all extremities Skin: COMMON NORMALS: no rashes or lesions noted GENERAL SKIN EXAM: dry skin OTHER: Chronic venous stasis dermatitis Data : 05/03/20 13:39 05/03/20 10:55 Micro: Microbiology 05/03/20 13:00 Blood Culture - Preliminary Blood SPECIMEN COLLECTED 05/03/20 10:55 Blood Culture - Preliminary Blood SPECIMEN COLLECTED A&P Assessment and plan (1) Acute upper GI bleed: Melanotic stools. Suspect upper GI bleeding. Perhaps related to multiple courses of steroids he had recently received. Denies hematemesis. Reports some hemoptysis, but this may be related to persistent cough with recent COVID-19 infection. Reports colonoscopy about 5 years ago with several polyps removed. Denies ever having EGD. Denies taking NSAIDs. Denies history of cirrhosis or gastric varices. On anticoagulation with Xarelto, also on aspirin. Will hold these medications. Protonix drip. Admitted to ICU. Type and screen. Monitor hemoglobin. Received IV fluid resuscitation due to low blood pressure on presentation. This appears to be better. Hold antihypertensives. He also appears to have thrombocytopenia with platelet level of 71,000. Status: Acute (2) Paroxysmal atrial fibrillation with RVR: History of difficult to control A. fib with paroxysmal episodes, with RVR. Has visited cardiology recently, his amiodarone was increased to 200 mg every 12 hours, and metoprolol changed to 100 mg 3 times daily. Currently blood pressure is soft. Metoprolol will be held. 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 We will continue amiodarone. We will start with 0.25 mg of digoxin, cautiously due to acute kidney injury. Cardiac monitoring. He is not hypokalemic. Check magnesium. Patient's states they were recently planning possible cardioversion with his porcelain finish sprayer. As per discussion with his porcelain finish sprayer GI bleeding will unfortunately delay the possibility of this given his anticoagulation has to be held. This was discussed with patient and his as well. Discussed also elevated risk of CVA given he currently cannot tolerate aspirin or anticoagulant. Status: Acute (3) Thrombocytopenia: Noted thrombocytopenia with platelet level of 71,000. With leukocytosis. Unclear cause of this. Has had recent viral illness with COVID-19. Will request for peripheral smear. Pharmacy will review medications. Status: Acute (4) Diarrhea: Likely secondary to melena and upper GI bleed. Has received antibiotic course recently. Will check C. difficile. Status: Acute (5) Venous insufficiency: Chronic bilateral lower extremity venous insufficiency with swelling, chronic ulceration. Status: Acute (6) Sleep apnea: Nightly CPAP Status: Acute (7) Pneumonia due to COVID-19 virus: With mild residual hypoxia around 3 L of oxygen by nasal cannula. Status: Acute (8) ANTONIO (acute kidney injury): Cr 1.4. He has had poor oral hydration recently, does state that he has been on fluid restriction. Lasix had recently been changed to as needed only, and states has not been taking them. Suspect this is prerenal acute kidney injury, likely also from hypotension, also in the setting of acute valsartan therapy. Received fluid challenge in ER. Reassess renal function. Status: Acute Additional A&P Information Other chronic medical problems noted Congestive heart failure, currently does not appear in exacerbation HLD HTN Attestations Medical Necessity Statement*: Admission of over 2 midnights is continued for assessment management of acute GI bleeding, hypotension, A. fib with RVR, acute kidney injury. 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
[2020-05-03 17:38] LABS: Magnesium 2.3 mg/dL (1.7-2.3)
[2020-05-03] MEDS: amiodarone 200 mg Tablet PO (17:55)
[2020-05-03 17:57] LABS: Hemoglobin 11.8 g/dL (11.7-16.6)
[2020-05-03] MEDS: acetaminophen 500 mg Tablet 1000 MG PO (19:43)
--- NOTE | 2020-05-03 19:59 | PC.NURSE ---
HR 140-150's, other VS WNL, Dr. Altman contacted, gave T.O. for Cardizem IVP 15 mg now, while on phone with DR. Altman, PT PCP put in order for Digoxin 250 mg 1x IVP now, Dr. Altman contacted again and informed of N.O., this nurse was advised to disregard Cardizem and report results of Digoxin IVP
--- NOTE | 2020-05-03 20:31 | PC.NURSE ---
HR 160's after 1x digoxin IVP, BP 45 minutes ago 148/86, currently 90/64, Dr. Altman contacted and gave T.O. for Amiodarone drip
--- NOTE | 2020-05-03 23:04 | PC.NURSE ---
Critical Lab 1 of 4 blood culture vials Gram positive cocci clusters and pairs reported to Dr. Altman, no N.O. at this time, stated we will wait for the rest of the results to come back since it is 1 of 4 vials
[2020-05-04] VITALS (45 sets, daily range): BP systolic 85–159; BP diastolic 49–92; PULSE 82–151; RESP 9–25; TEMP 36.9–37.6; O2SAT 80–99
[2020-05-04] MEDS: pantoprazole 40 MG in sodium chloride 0.9% (plus) 100 ML 20 MG IV ×2 (02:05→06:32)
[2020-05-04 02:17] LABS: Hemoglobin 10.3 g/dL (11.7-16.6)
--- NOTE | 2020-05-04 06:48 | P.PN_ITS ---
Subjective Subjective: Interval history: The patient says he has developed a mild productive cough overnight. He has not had any more stools or bleeding. He is not very enthused about undergoing endoscopy at this time. Vitals/I&O/Wt Last Vital Signs Temp 98.7 F 05/04/20 06:00 Pulse 103 H 05/04/20 06:00 Resp 22 H 05/04/20 06:00 BP 120/75 05/04/20 06:00 Pulse Ox 97 05/04/20 06:00 05/03/20 05/03/20 05/04/20 14:59 22:59 06:59 Intake Total 100 / 400.6 300.6 / 400.6 Output Total 200 / 400 200 / 400 Balance -100 / 0.6 100.6 / 0.6 Weight last 48 hrs Weight 417 lb Weight 425 lb Physical Exam Narrative: EXAM NARRATIVE: Abdomen remains nontender. Data : 05/04/20 01:45 05/03/20 10:55 Micro: Microbiology 05/03/20 10:55 Blood Culture - Preliminary Blood 05/03/20 13:00 Blood Culture - Preliminary Blood SPECIMEN COLLECTED A&P Assessment and plan (1) Hematochezia: The patient has had no further evidence of hematochezia. I am not certain that any of his stools have been truly melanotic. They were heme positive but that could be easily explained by the hematochezia that he had developed with his diarrhea recently. Nevertheless, the patient is not enthused about undergoing endoscopy at this time. I will continue following peripherally and we can certainly reconsider if he changes his mind. Status: Acute (2) Diarrhea: Following his recent Covid infection. It sounds like this may be his primary issue. He has had some hematochezia from hemorrhoids in the past following episodes of diarrhea. Status: Acute Attestations Medical Necessity Statement*: See admitting service's notation. 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
[2020-05-04 07:13] LABS: Basophils % 0.4 %; Eosinophils % 0.1 %; Hematocrit 35.8 % (42.0-52.0); Hemoglobin 11.1 g/dL (11.7-16.6); Lymphocytes # 0.3 10^3/uL (0.8-4.8); Lymphocytes % 3.1 %; Mean Corpuscular Hemoglobin 31.7 pg (28.0-34.0); Mean Corpuscular Volume 102.3 fL (80-94); Mean Platelet Volume 12.9 fL (7.4-10.4); Monocytes # 0.3 10^3/uL (0.2-0.9); Monocytes % 3.2 %; Neutrophils # 8.84 10^3/uL (1.8-7.7); Neutrophils % 91.5 %; Nucleated Red Blood Cells % 0 %; Platelet Count 49 10^3/cmm (130-400); Red Cell Distribution Width 14.8 % (12.1-15.1); White Blood Count 9.7 10^3/uL (4.0-10.0)
--- NOTE | 2020-05-04 08:33 | PM.PN ---
Subjective Subjective: Interval history: States he is not doing a whole lot better as he has been coughing a lot. Otherwise he is doing okay. No abdominal pain. No further diarrhea or blood in stool. Feels cold. Vitals/I&O/Wt Last Vital Signs Temp 98.7 F 05/04/20 06:00 Pulse 103 H 05/04/20 06:00 Resp 22 H 05/04/20 06:00 BP 120/75 05/04/20 06:00 Pulse Ox 97 05/04/20 06:00 05/03/20 05/04/20 05/04/20 22:59 06:59 14:59 Intake Total 100 / 100 300.6 / 400.6 Output Total 200 / 200 200 / 400 Balance -100 / -100 100.6 / 0.6 Weight last 48 hrs Weight 189.148 kg Weight 192.777 kg Physical Exam Const: COMMON NORMALS: no acute distress, patient oriented x3 and alert NUTRITIONAL APPEARANCE: obese ORIENTATION/CONSCIOUSNESS: Yes awake HENMT: COMMON NORMALS: oropharynx normal Neck/C-Spine: COMMON NORMALS: no JVD Resp: COMMON NORMALS: normal respiratory effort and clear to auscultation bilaterally AUSCULTATION: clear to auscultation bilaterally and crackles (Minimal at bases) Cardio: COMMON NORMALS: no JVD, S1 normal heart sound present, S2 normal heart sound present and No murmurs present (Cardio) RHYTHM: abnormal rhythm irregularly irregular HEART SOUNDS: S1 normal heart sound present and S2 normal heart sound present GI: COMMON NORMALS: Normal to inspection, nondistended, normoactive bowel sounds present, Soft to palpation and non-tender PALPATION: Yes Soft to palpation Extremity: COMMON NORMALS: no joint enlargement and no pedal edema OTHER: Chronic venous stasis swelling of lower extremities, chronic ulceration Neuro: COMMON NORMALS: patient oriented x3 and moves all extremities SENSORIUM/ORIENTATION: Yes alert Skin: COMMON NORMALS: no rashes or lesions noted GENERAL SKIN EXAM: no rashes or lesions noted and dry skin OTHER: Chronic venous stasis dermatitis Data : 05/04/20 07:04 05/03/20 10:55 Micro: Microbiology 05/03/20 10:55 Blood Culture - Preliminary Blood 05/03/20 13:00 Blood Culture - Preliminary Blood SPECIMEN COLLECTED A&P Assessment and plan (1) Acute upper GI bleed: Melanotic stools stopped. Seen by surgery. He and the surgeon decided on discussion at this time not to pursue additional more invasive evaluation unless bleeding resumes. Hemoglobin this morning is 11.1. We will switch Protonix drip to twice daily dosing. Monitor Hb. Check H pylori. Trial of anticoagulation may be complicated by low platelet level in addition to GIB. On anticoagulation with Xarelto, also on aspirin. Hold these medications. Status: Acute (2) Paroxysmal atrial fibrillation with RVR: Last night received additional dose of digoxin. Heart rate was still elevated, so was initiated overnight on amiodarone drip. This morning heart rate is better, and low 100s. We will stop drip, resume home dose of amiodarone. Blood pressure is also better, so we will resume metoprolol, although at that slightly lower dose at 75 mg 3 times daily. Monitor blood pressure, if is doing well, resume regular dosing metoprolol. Anticoagulation is on hold due to GI bleeding and thrombocytopenia. Cardiac monitoring. Status: Acute (3) Thrombocytopenia: Thrombocytopenia more severe today at 49,000. Follow-up peripheral smear. Hold anticoagulation. Obtain stool studies. Has had recent viral illness with COVID-19. Possible ITP. Check H pylori. Pharmacy requested to review medications. Status: Acute (4) Diarrhea: Likely secondary to melena and upper GI bleed. Has received antibiotic course recently. Will check C. difficile. Status: Acute (5) Venous insufficiency: Chronic bilateral lower extremity venous insufficiency with swelling, chronic ulceration. Status: Acute (6) Sleep apnea: Nightly CPAP Status: Acute (7) Pneumonia due to COVID-19 virus: With mild residual hypoxia around 3 L of oxygen by nasal cannula. Status: Acute (8) ANTONIO (acute kidney injury): Today's chemistry sample in the morning hemolyzed. This is being repeated. On admission Cr 1.4. He has had poor oral hydration recently, does state that he has been on fluid restriction. Lasix had recently been changed to as needed only, and states has not been taking them. Suspect this is prerenal acute kidney injury, likely also from hypotension, also in the setting of acute valsartan therapy. Hold valsartan. Received fluid challenge in ER. Reassess renal function. Status: Acute Additional A&P Information Other chronic medical problems noted Congestive heart failure, currently does not appear in exacerbation HLD HTN Attestations Medical Necessity Statement*: Continue admission for assessment management of GI bleed while on anticoagulation, with underlying atrial fibrillation, A. fib with RVR, acute thrombocytopenia, acute kidney injury. 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
[2020-05-04] MEDS: amiodarone 200 mg Tablet PO (09:27)
[2020-05-04] MEDS: metoprolol tartrate 50 mg Tablet 75 MG PO (09:27)
[2020-05-04 10:40] LABS: H. Pylori IgG Antibody Negative (Negative)
[2020-05-04 11:35] LABS: Alanine Aminotransferase 62 U/L (0-41); Albumin Level 2.2 g/dL (3.5-5.2); Alkaline Phosphatase 154 IU/L (40-130); Blood Urea Nitrogen 46 mg/dL (8-23); Calcium 7.7 mg/dL (8.5-10.5); Carbon Dioxide 22 mmol/L (22-29); Chloride 97 mmol/L (98-107); Globulin 3.9 g/dL (1.3-4.6); Glomerular Filtration Rate 30.7 mL/min (90-130); Glucose 145 mg/dL (65-115); Osmolality Calculated 288 mOsm/kg (285-295); Sodium 132 mmol/L (136-145); Total Bilirubin 0.8 mg/dL (0.15-1.2); Total Protein 6.1 g/dL (6.6-8.7)
[2020-05-04 11:42] LABS: Anion Gap 17.3 (5-19); Aspartate Amino Transferase 49 U/L (0-40); Potassium 4.3 mmol/L (3.5-5.1)
[2020-05-04 12:45] LABS: Digoxin 0.7 ng/mL (0.6-1.2)
--- NOTE | 2020-05-04 13:34 | PC.CHAP ---
Pastoral Care Encounter/Spiritual Assessment Type of Contact [] Declined house visitor visit [x] Patient/Family/Request visit [] Outpatient visit [] Follow-up visit [] Physician referral [] Code/Alert [] Routine visit [] Staff referral [] Actively dying [] Patient sleeping [] Family support [] [] Out of room [] Palliative care [] [] Receiving care in room [] Pre-surgical visit [] Trauma [] Long length of stay [xx] ICU visit [] Other: Relational/Emotional Strength [x] Patient feels connected with others/family/visitors/staff [] Distress [] Loneliness/isolation [] Abandonment Spirituality of Patient [x] Person of [place] [] Attends [facility] of their [place] [x] Believes in Prayer [x] Reads Bible or Latter Day materials [x] There are Spiritual issues to be addressed Sewing Machine Mechanic Interventions [x] Prayer [x] Active listening [x] Non-anxious presence [x] Spiritual/emotional support [] Crisis/trauma care [x] Spiritual counseling [] Bereavement support [] Provided bereavement packet [] Provided Bible/devotional materials [] Provided toy/stuffed animal, coloring book to patient or family member [] Provided Communion [] Anointing/Cornelius [] Salvation [x] Completed spiritual assessment [] Other: Impact on Illness or Injury [] Angry [] Fearful [x] Anxious [] Often cries [] Exhaustion [x] Unable to work [] Unable to attend buddhism [] Unable to walk/stand [] Unable to read [] Unable to drive [] Unable to eat/drink [] Unable to sleep [x] Unable to be with family [] Patient intubated [] Other: Summary Nice visit with patient. He spoken of theological issues and had several question about the end time and new heaven and new earth. talked of his struggle with COVID and how it has affected him. Patient spoke very passionate about his love for his family especially his grandchildren. Sewing Machine Mechanic prayed for the patient and inquired if there were any other needs, none at this time. Time spent with patient 15 min
[2020-05-04 15:13] LABS: Hepatitis A Antibody IgM Non-Reactive (Nonreactive); Hepatitis B Core IgM Non-Reactive (Nonreactive); Hepatitis B Surface Antigen Non-Reactive (Nonreactive); Hepatitis C Virus Antibody Non-Reactive (Nonreactive)
[2020-05-04 16:08] LABS: Hematocrit 33.5 % (42.0-52.0); Hemoglobin 10.6 g/dL (11.7-16.6); Mean Corpuscular HGB Conc 31.6 g/dL (30.0-36.0); Mean Corpuscular Hemoglobin 31.6 pg (28.0-34.0); Mean Platelet Volume 12.8 fL (7.4-10.4); Platelet Count 44 10^3/cmm (130-400); Red Blood Count 3.35 10^6/uL (4.1-5.3); Red Cell Distribution Width 14.7 % (12.1-15.1); White Blood Count 12.6 10^3/uL (4.0-10.0)
--- NOTE | 2020-05-04 16:21 | PC.NURSE ---
when standing today noted large softball size or larger mass hanging from thigh. states he has had it for about a year, but it has gotten increasingly larger the last 3-4 wks or so. she states its from the lymph edema. also note large baseball size sore on back of left leg just above the heel. no drainage.
--- NOTE | 2020-05-04 16:31 | PM.CONSULT ---
Providers/Reason For Consult Consulting Physican/Specialty*: Gavino Ware MD/Cardiology Reason for Consult*: Afib with RVR Requesting Physcian: Berny Wright Attending Physician: Berny Wright Primary Care Provider: Nirav Parra DO History of Present Illness History of Present Illness 59-year-old gentleman with recent admission for COVID-19 pneumonia, requiring small oxygen on discharge, with history of atrial fibrillation difficult to control, with history of cardioversion, on amiodarone, metoprolol, anticoagulation with Xarelto, status post ICD, with also chronic venous insufficiency of lower extremities, with chronic ulceration, HTN, HLD, morbid obesity, sleep apnea comes to the hospital after episode of melanous diarrhea. He denies hematemesis, however, since discharge from the hospital during last admission has had some persistent cough, and reports some mixing of bloody content in the sputum. Patient has been found to have thombocytopenia, has liver dysfunction, ANTONIO. Anticoagulation has been held for possible bleeding. Amio was also held because of liver dysfunction. Heart rates are ranging 100-140s. Review of Systems Const: Denies: fever(s), chills, body aches or malaise Eyes: Denies: change in vision or eye redness ENMT: Denies: throat pain, oral sores or ear or mastoid pain Card: Denies: chest pain, edema, pre-syncope or dyspnea on exertion Resp: Reports: productive cough (Persistent cough with some phlegm, also with some mixed in small amounts of); Denies: dyspnea or change in phlegm color GI: Reports: diarrhea and melena; Denies: abdominal pain, nausea, vomiting, constipation or hematochezia : Denies: flank pain, difficulty urinating, urinary frequency or hematuria Musc: Denies: back pain, joint swelling or joint redness Skin/Breast: Denies: rash, sores or new lesions Neuro: Denies: headache(s), numbness in extremities, weakness in extremities, dizziness, confusion or seizure-like activity Endo: Denies: polyuria or polydipsia Amandeep/Lymph: Denies: easy bleeding or purpura All/Imm: Denies: urticaria, throat swelling or tongue swelling Meds/Allergies Home Medications and Allergies Home Medications Medication Instructions Recorded Confirmed Last Taken Type aspirin 81 mg tablet,delayed 81 mg PO DAILY tab 09/29/19 05/03/20 05/02/20 History release nitroglycerin 0.4 mg sublingual 0.4 mg SUBLINGUAL Q5M PRN 09/29/19 05/03/20 Unknown History tablet rivaroxaban 20 mg tablet 20 mg PO DAILY tab 09/29/19 05/03/20 05/02/20 History sacubitril 49 mg-valsartan 51 mg 1 tab PO BID #60 tab 02/09/20 05/03/20 05/03/20 Rx tablet montelukast [Singulair] 10 mg PO DAILY PRN 04/20/20 05/03/20 05/03/20 History albuterol sulfate [Ventolin HFA] 2 puff INHALATION Q4H.RESPIRATORY 04/22/20 05/03/20 04/25/20 Rx PRN #8.5 gm furosemide 40 mg PO DAILY PRN #0 tab 04/22/20 05/03/20 04/24/20 Rx amiodarone 200 mg tablet 200 mg PO Q12H #60 tab 05/01/20 05/03/20 05/03/20 Rx metoprolol tartrate 100 mg tablet 100 mg PO TID #180 tab 05/01/20 05/03/20 05/03/20 Rx acetaminophen [Tylenol Extra 1,000 mg PO PRN 05/03/20 05/03/20 Unknown History Strength] dextromethorphan-guaifenesin 1 tab PO QID PRN 05/03/20 05/03/20 Unknown History [Chest Congestion Relief DM] Allergies Allergy/AdvReac Type Severity Reaction Status Date / Time No Known Allergies Allergy Verified 05/03/20 11:22 Current Medications Current Medications Generic Name Dose Route Start Last Admin Trade Name Freq PRN Reason Stop Dose Admin Acetaminophen 1,000 mg 05/03/20 16:30 05/03/20 19:43 Acetaminophen 500 Mg Tablet PO 1,000 mg DAILY PRN Administration MILD PAIN OR INCREASE TEMP Amiodarone HCl 200 mg 05/03/20 20:00 05/04/20 09:27 Amiodarone 200 Mg Tablet PO 200 mg Q12H MARGARET Administration Pantoprazole Sodium 40 mg 05/04/20 09:00 05/04/20 12:09 Pantoprazole 40 Mg Sdv IVP Not Given Q12H MARGARET PFSH Acute PFSH: Medical History Anticoagulation adequate with anticoagulant therapy Xarelto Atrial fibrillation Cardiomyopathy CHF (congestive heart failure) Dyslipidemia History of colon polyps HTN (hypertension) Hypoxia Obesity MIMI on CPAP Sleep apnea Venous insufficiency Surgical History H/O hand surgery Left x2 --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 H/O local excision of skin lesion Right lower leg skin biopsy -- benign History of arthroscopic knee surgery Bilateral History of cardiac radiofrequency ablation Several History of left inguinal hernia repair History of orchiectomy, unilateral Left -- benign adenomatoid tumor S/P ICD (internal cardiac defibrillator) procedure Family History Other No significant family history Social History Smoking and tobacco status: former smoker Quit status (tobacco): has quit using tobacco Year quit tobacco: Around 2011 Former quit date comment: 100 to [id number] history prior to quitting Alcohol intake: current Alcohol intake frequency: holidays/special occasions only Household members: spouse Marital status: service: No Current occupational status: disabled Vitals/I&O/Wt Last Vital Signs Temp 99.7 F H 05/04/20 13:00 Pulse 123 H 05/04/20 15:30 Resp 14 05/04/20 14:30 BP 107/54 05/04/20 16:00 Pulse Ox 96 05/04/20 15:30 05/04/20 05/04/20 05/04/20 06:59 14:59 22:59 Intake Total 300.6 / 400.6 760 / 760 Output Total 200 / 400 Balance 100.6 / 0.6 759 / 759 Weight last 48 hrs Weight 417 lb Weight 425 lb Physical Exam Const: COMMON NORMALS: no acute distress, patient oriented x3 and alert NUTRITIONAL APPEARANCE: obese ORIENTATION/CONSCIOUSNESS: Yes awake OTHER: HENMT: COMMON NORMALS: oropharynx normal Neck/C-Spine: COMMON NORMALS: no JVD Resp: COMMON NORMALS: normal respiratory effort and clear to auscultation bilaterally AUSCULTATION: clear to auscultation bilaterally and crackles (Minimal) Cardio: COMMON NORMALS: no JVD, S1 normal heart sound present, S2 normal heart sound present and No murmurs present (Cardio) RHYTHM: abnormal rhythm irregularly irregular HEART SOUNDS: S1 normal heart sound present and S2 normal heart sound present GI: COMMON NORMALS: Normal to inspection, nondistended, normoactive bowel sounds present, Soft to palpation and non-tender PALPATION: Yes Soft to palpation Extremity: COMMON NORMALS: no joint enlargement and no pedal edema Neuro: COMMON NORMALS: patient oriented x3 and moves all extremities SENSORIUM/ORIENTATION: Yes alert Skin: COMMON NORMALS: no rashes or lesions noted GENERAL SKIN EXAM: no rashes or lesions noted and dry skin Urinary Catheter Management^: Lynn: Cath Placed During This Visit: yes Urinary Catheter Date of Insertion: 05/05/20 Urinary Catheter Time of Insertion: 11:55 Data Micro: Micro: Microbiology 05/03/20 13:00 Blood Culture - Pr eliminary Blood Staphylococcus aureus 05/03/20 10:55 Blood Culture - Pr eliminary Blood Staphylococcus aureus 05/04/20 10:00 Occult Blood (FIT) - Final Stool Routine Col lection 05/04/20 10:00 C.difficile Toxin B Gene (PCR) - Fin al Stool Routine Col lection A&P Assessment and plan (1) ANTONIO (acute kidney injury): Status: Acute (2) Paroxysmal atrial fibrillation with RVR: Status: Acute (3) Sleep apnea: Status: Acute (4) History of cardiac radiofrequency ablation: Status: Acute (5) S/P ICD (internal cardiac defibrillator) procedure: Status: Acute (6) Cardiomyopathy: Status: Acute (7) Dyslipidemia: Status: Acute Patient has uncontrolled heart rates. It is likely driven by underlying condition likely infection/sepsis. Will start esmolol gtt and supplement with oral beta blockers (metoprolol 75mg TID). If patient becomes hypotensive, will have to switch to amiodarone gtt. Will not pursue elective cardioversion as patient can not be anticoagulated at this time because of significant thrombocytopenia and recent bleeding. Afib will be better controlled once underlying condition improves. Thank you for involving us with the care of this patient. Please call with questions. 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
[2020-05-04 17:18] LABS: Slide Review Slide Review Perform
[2020-05-04 17:25] LABS: Absolute Segmented Neutrophil 11.3 10/cmm (1.6-7.1); Band Neutrophils Absolute 0.4 10^3/cmm (0.0-1.2); Lymphocytes 2 %; Monocytes Absolute 0.5 10^3/cmm (0.1-0.6); Segmented Neutrophils 90 %; Total Cells Counted 100 (0-100)
[2020-05-04 17:26] LABS: Absolute Neutrophil 11.7 10^3/cmm (1.4-6.5); Platelet Estimate Decreased (Normal)
[2020-05-04 17:27] LABS: Eosinophils 0 %
[2020-05-04] MEDS: esmolol drip 2,500 MG/250 ML PREMIX 56 MG IV ×2 (18:21→22:44)
[2020-05-04] MEDS: pantoprazole 40 mg SDV IVP (21:00)
[2020-05-05] VITALS (27 sets, daily range): BP systolic 69–138; BP diastolic 31–88; PULSE 88–137; RESP 17–28; O2SAT 90–99
[2020-05-05] MEDS: esmolol drip 2,500 MG/250 ML PREMIX 56 MG IV (02:21)
[2020-05-05 04:41] LABS: Basophils # 0.1 10^3/uL (0.0-0.1); Basophils % 0.5 %; Eosinophils % 0.1 %; Hematocrit 31.8 % (42.0-52.0); Hemoglobin 10.2 g/dL (11.7-16.6); Lymphocytes # 0.4 10^3/uL (0.8-4.8); Lymphocytes % 3.3 %; Mean Corpuscular HGB Conc 32.1 g/dL (30.0-36.0); Mean Corpuscular Hemoglobin 32.3 pg (28.0-34.0); Mean Corpuscular Volume 100.6 fL (80-94); Mean Platelet Volume 13.2 fL (7.4-10.4); Monocytes # 0.6 10^3/uL (0.2-0.9); Monocytes % 5.3 %; Neutrophils # 9.74 10^3/uL (1.8-7.7); Neutrophils % 88.8 %; Nucleated Red Blood Cells % 0 %; Platelet Count 32 10^3/cmm (130-400); Red Blood Count 3.16 10^6/uL (4.1-5.3); Red Cell Distribution Width 14.9 % (12.1-15.1)
[2020-05-05 05:20] LABS: Alanine Aminotransferase 43 U/L (0-41); Albumin Level 1.7 g/dL (3.5-5.2); Alkaline Phosphatase 124 IU/L (40-130); Aspartate Amino Transferase 34 U/L (0-40); Blood Urea Nitrogen 54 mg/dL (8-23); Calcium 7.1 mg/dL (8.5-10.5); Carbon Dioxide 20 mmol/L (22-29); Chloride 100 mmol/L (98-107); Globulin 3.3 g/dL (1.3-4.6); Glomerular Filtration Rate 20.7 mL/min (90-130); Glucose 108 mg/dL (65-115); Magnesium 2.3 mg/dL (1.7-2.3); Osmolality Calculated 283 mOsm/kg (285-295); Sodium 129 mmol/L (136-145); Total Bilirubin 0.6 mg/dL (0.15-1.2)
[2020-05-05] MEDS: morphine 4 mg/mL SDV 1 mL 2 MG IVP ×2 (05:21→12:37)
[2020-05-05 05:22] LABS: Anion Gap 13.7 (5-19); Potassium 4.7 mmol/L (3.5-5.1)
--- NOTE | 2020-05-05 06:00 | USR_ITS ---
PROCEDURE INFORMATION: Exam: US Abdomen, Limited; Right Upper Quadrant Exam date and time: 05/04/2020 2:20 PM Age: 59 years old Clinical indication: Abnormal findings; Abnormal lab test; Elevated liver enzymes; Additional info: Perihepatic - elev alk phos and transaminases TECHNIQUE: Imaging protocol: US abdomen. Real time ultrasound with image documentation. Limited exam focused on the right upper quadrant. COMPARISON: CT angio chest w abd pel w con 05/03/2020 12:09 PM FINDINGS: Liver: There is mildly increased density of the liver indicating fatty liver.. No masses. Gallbladder: Normal. No gallstones. There is no gallbladder wall thickening. Common bile duct: The extrahepatic bile ducts are obscured by bowel gas. There is no intrahepatic bile duct dilatation.. Pancreas: Poorly visualized due to overlying bowel gas.. Right kidney: Normal. No mass. No hydronephrosis. Aorta: The aorta was obscured by bowel gas. US/US liver [id number] IMPRESSION: 1. Suboptimal study due to prominent bowel gas. 2. Fatty liver. 3. Normal gallbladder. No obvious ductal dilatation.
[2020-05-05] MEDS: metoprolol tartrate 50 mg Tablet PO (08:17)
[2020-05-05] MEDS: pantoprazole 40 mg SDV IVP ×2 (08:17→20:42)
[2020-05-05 08:43] LABS: NT Pro B Type Natriuretic Pept 4499 pg/mL (0-125)
[2020-05-05] MEDS: sodium chloride 0.9% 500 ML IV ×2 (09:16→20:48)
[2020-05-05 10:59] LABS: Lactate Dehydrogenase 325 U/L (135-225)
[2020-05-05 12:27] LABS: Blood Urine 3+ (Negative); Glucose Urine UA Norm (Normal); Ketones Urine Negative (Negative); Nitrate Urine Negative (Negative); Protein Urine 1+ (Negative); Specific Gravity, Urine 1.025 (1.005-1.030); Urine Appearance Cloudy (CLEAR); Urine Color Amber (Yellow); pH Urine 6.5 (5-7)
[2020-05-05 12:28] LABS: Add Urine Microscopic? YES; Bilirubin Urine 1+ (Negative); Leukocyte Esterase Urine Negative (Negative); Urobilinogen Urine 8 mg/dL (Negative)
[2020-05-05 12:31] LABS: RBC Urine 15-25 /hpf (0-2); Squamous Epithelial Cell Urine 0-4 /hpf (0-5); WBC Urine 15-25 /hpf (0-5)
[2020-05-05 12:32] LABS: Amorphous Sediment Urine 2+ /hpf; Bacteria Urine 2+ /hpf; Mucus Urine 2+ /hpf
--- NOTE | 2020-05-05 12:32 | CTR_ITS ---
PROCEDURE INFORMATION: Exam: CT Lumbar Spine Without Contrast Exam date and time: 05/05/2020 1:01 PM Age: 59 years old Clinical indication: Low back pain; Patient HX: C/O lbp and urinary retention; Additional info: Pain, sepsis, staph bacteremia TECHNIQUE: Imaging protocol: Computed tomography images of the lumbar spine without contrast. Radiation optimization: All CT scans at this facility use at least one of these dose optimization techniques: automated exposure control; mA and/or kV adjustment per patient size (includes targeted exams where dose is matched to clinical indication); or iterative reconstruction. COMPARISON: No relevant prior studies available. RADIATION DOSE METRICS: Total DLP (mGy-cm): 2048.67 FINDINGS: Vertebrae: No fracture, dislocation or other acute bony abnormalities are seen. Mild degenerative changes are present with small osteophytes on the vertebral bodies. There is narrowing and sclerosis of the lumbar facet joints. Discs/Spinal canal/Neural foramina: There is mild spinal stenosis at the L4-L5 level related to diffuse disc bulging and bilateral facet hypertrophy. No disc herniation is seen. There is mild bulging of the L5-S1 disc with facet hypertrophy but no significant spinal stenosis at the L5-S1 level. Soft tissues: Unremarkable. CT/CT lumbar spine wo con* [id number] IMPRESSION: Mild degenerative disc bulging with facet hypertrophy causing mild spinal stenosis at L4-L5. No acute abnormality. Radiation Dose CTDIVOL = (mGy): DLP = 2048.67 (mGy-cm)
--- NOTE | 2020-05-05 12:32 | CTR_ITS ---
PROCEDURE INFORMATION: Exam: CT Thoracic Spine Without Contrast Exam date and time: 05/05/2020 1:01 PM Age: 59 years old Clinical indication: Pain in thoracic spine; Without myelpathy or radiculopathy; Prior surgery; Surgery date: 6+ months; Surgery type: Pacer; Patient HX: C/O back pain w/o injury; Additional info: Pain, sepsis, staph bacteremia TECHNIQUE: Imaging protocol: Computed tomography images of the thoracic spine without contrast. Radiation optimization: All CT scans at this facility use at least one of these dose optimization techniques: automated exposure control; mA and/or kV adjustment per patient size (includes targeted exams where dose is matched to clinical indication); or iterative reconstruction. COMPARISON: No relevant prior studies available. RADIATION DOSE METRICS: Total DLP (mGy-cm): 2470.39 FINDINGS: Vertebrae: Chronic degenerative disease is present in the thoracic spine with anterior osteophyte formation, sclerosis and mild disc space narrowing. Discs/Spinal canal/Neural foramina: There is no significant bony spinal stenosis of the canal or neural foramina. No disc herniations are seen. There is mild scoliosis. Soft tissues: There is mild dependent atelectasis in the lung bases.. CT/CT thoracic spin wo con* [id number] IMPRESSION: Chronic degenerative changes but no significant spinal stenosis or neural foraminal narrowing. Radiation Dose CTDIVOL = (mGy): DLP = 2470.39 (mGy-cm)
--- NOTE | 2020-05-05 12:32 | PM.PN ---
Subjective Subjective: Interval history: He is feeling about similar, is having some back pain lower back, which she feels is from laying in bed. Requested and was sat up in chair for little bit. Some mild intermittent cough, says is not any worse. No chest pain. He did have minimal UOP this AM after requesting to urinate. Vitals/I&O/Wt Last Vital Signs Temp 98.4 F 05/04/20 20:34 Pulse 92 05/05/20 11:00 Resp 28 H 05/05/20 11:00 BP 116/41 05/05/20 11:00 Pulse Ox 94 05/05/20 11:00 05/04/20 05/05/20 05/05/20 22:59 06:59 14:59 Intake Total 825.467 / 1585.467 322.633 / 1908.100 38.747 / 38.747 Output Total 100 / 101 75 / 176 200 / 200 Balance 725.467 / 1484.467 247.633 / 1732.100 -161.253 / -161.253 Weight last 48 hrs Weight 189.148 kg Physical Exam Const: COMMON NORMALS: no acute distress, patient oriented x3 and alert NUTRITIONAL APPEARANCE: obese ORIENTATION/CONSCIOUSNESS: Yes awake OTHER: Up in chair. Discussed with him to return to bad soonest possible. HENMT: COMMON NORMALS: oropharynx normal Neck/C-Spine: COMMON NORMALS: no JVD Resp: COMMON NORMALS: normal respiratory effort and clear to auscultation bilaterally AUSCULTATION: clear to auscultation bilaterally and crackles (Minimal) Cardio: COMMON NORMALS: no JVD, S1 normal heart sound present, S2 normal heart sound present and No murmurs present (Cardio) RHYTHM: abnormal rhythm irregularly irregular HEART SOUNDS: S1 normal heart sound present and S2 normal heart sound present GI: COMMON NORMALS: Normal to inspection, nondistended, normoactive bowel sounds present, Soft to palpation and non-tender PALPATION: Yes Soft to palpation Extremity: COMMON NORMALS: no joint enlargement and no pedal edema OTHER: Chronic venous stasis swelling of lower extremities, chronic ulceration Neuro: COMMON NORMALS: patient oriented x3 and moves all extremities SENSORIUM/ORIENTATION: Yes alert Skin: COMMON NORMALS: no rashes or lesions noted GENERAL SKIN EXAM: no rashes or lesions noted and dry skin OTHER: Chronic venous stasis dermatitis Urinary Catheter Management^: Lynn: Cath Placed During This Visit: yes Urinary Catheter Date of Insertion: 05/05/20 Urinary Catheter Time of Insertion: 11: Data : 05/05/20 03:47 05/05/20 03:47 Micro: Microbiology 05/04/20 10:00 Enteric Pathogens (PCR) - Final Stool 05/04/20 10:00 Parasite Antigen Panel - Final Stool Routine Collection 05/03/20 13:00 Blood Culture - Preliminary Blood Staphylococcus aureus 05/03/20 10:55 Blood Culture - Preliminary Blood Staphylococcus aureus 05/04/20 10:00 Occult Blood (FIT) - Final Stool Routine Collection 05/04/20 10:00 C.difficile Toxin B Gene (PCR) - Final Stool Routine Collection A&P Assessment and plan (1) Sepsis: Leukocytosis, tachycardia, today blood pressure soft, received 500 mL bolus this morning. 3/4 bottles Staph aureus in blood. Pending sensitivities. Blood culture repeat requested. Request lactic acid. Starting antibiotics. Source is not entirely clear. Possible superimposed bacterial pneumonia after recent viral pneumonia, does have patchy infiltrates noted in CT which are persistent and somewhat worse than before. This morning also having some urinary retention symptoms, with UA suggestive of possible UTI. Follow-up culture. Also has some chronic ulcerations on his lower extremities with chronic venous stasis. Also has pacemaker in place. Requested also CT thoracic and lumbar spine, without contrast to start with due to acute kidney injury. Status: Acute (2) Staphylococcus aureus bacteremia: As above. Status: Acute (3) Acute upper GI bleed: Hemoglobin with minimal gradual decline, monitor. Continue PPI pushes. Check H pylori stool antigen pending, antibody negative. Trial of anticoagulation may be complicated by low platelet level in addition to GIB. On anticoagulation with Xarelto, also on aspirin. Holding these medications. Status: Acute (4) Paroxysmal atrial fibrillation with RVR: Appreciate cardiac assessment. Esmolol drip as needed/tolerating. Metoprolol as tolerating. Anticoagulation is on hold due to GI bleeding and thrombocytopenia. Cardiac monitoring. Status: Acute (5) Thrombocytopenia: Worse thrombocytopenia today. Haptoglobin is not low, LDH is moderately elevated. This appears to be secondary to sepsis. Treat as above. Briefly discussed with her information technology project manager was available for consultation if necessary. Stool studies are negative. H. pylori stool antigen pending, antibody negative. Status: Acute (6) Diarrhea: Likely secondary to melena and upper GI bleed. Has received antibiotic course recently. Negative C. difficile, stool studies. Status: Acute (7) Venous insufficiency: Chronic bilateral lower extremity venous insufficiency with swelling, chronic ulceration. Status: Acute (8) Sleep apnea: Nightly CPAP Status: Acute (9) Pneumonia due to COVID-19 virus: Recently hospitalized. With mild residual hypoxia around 3 L of oxygen by nasal cannula. Status: Acute (10) ANTONIO (acute kidney injury): Orders acute kidney injury, no hydronephrosis/obstruction on CT abdomen pelvis on presentation. Requested UA, urine studies. Blood pressure soft this morning, given bolus. Monitor blood pressures, avoid hypotension. Treat sepsis as above. Hold ARB. Possible contribution of contrast-induced nephropathy as discussed with patient. Status: Acute Additional A&P Information Other chronic medical problems noted Congestive heart failure, monitor for exacerbation HLD HTN Attestations Medical Necessity Statement*: Continue admission for assessment management of sepsis, staphylococcal bacteremia, acute blood loss anemia, thrombocytopenia, possible pneumonia, recent COVID-19 infection, acute kidney injury. Time Spent in Patient Care: 45 minutes critical care time spent on assessment and management of immediately life-threatening issues including sepsis, Staphylococcus bacteremia, acute kidney injury, worsening thrombocytopenia, pneumonia, with recent COVID-19 infection. 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
[2020-05-05 12:34] LABS: Add Urine Culture? Yes
--- NOTE | 2020-05-05 12:34 | USR_ITS ---
PROCEDURE INFORMATION: Exam: US Unlisted Ultrasound Procedure Exam date and time: 05/05/2020 3:47 PM Age: 59 years old Clinical indication: Device placement; Additional info: Ppm pocket assess for any abscess/fluid TECHNIQUE: Imaging protocol: Unlisted ultrasound procedure (eg, diagnostic, interventional). COMPARISON: No relevant prior studies available. FINDINGS: Procedural imaging: Targeted ultrasound evaluation in the upper left chest wall. Echogenic pacemaker device noted in the superficial soft tissues. No fluid collection identified. US/US soft tissue/extremity [id number] IMPRESSION: No focal fluid collection identified.
[2020-05-05 13:07] LABS: Fibrinogen 413 mg/dL (174-498); INR 1.29 (0.8-1.2); Partial Thromboplastin Time 27.1 SECONDS (23.9-36.7); Platelet Count 32 10^3/cmm (130-400)
--- NOTE | 2020-05-05 13:45 | PC.NURSE ---
CT Patient was transfered to CT by this nurse via wheelchair. Vitals WNL. Tolerated well.
[2020-05-05] MEDS: linezolid premix 600 MG/300 ML PREMIX 300 MG IV (14:04)
[2020-05-05 14:20] LABS: Urea Nitrogen,Urine Random 223 mg/dL; Urine Random Sodium < 10 mmol/L
[2020-05-05] MEDS: cefepime 1,000 MG in sodium chloride 0.9% (plus) 50 ML 100 MG IV (14:26)
--- NOTE | 2020-05-05 17:53 | PM.PN ---
Subjective Subjective: Interval history: Patient has mild shortness of breath. His heart rate increases on movement. Esmolol was held as patient was becoming hypotensive. Blood cultures are positive for staph aureus. Platelets are dropping. Patient has ANTONIO. LFTs improved. Vitals/I&O/Wt Last Vital Signs Temp 98.4 F 05/04/20 20:34 Pulse 116 H 05/05/20 16:00 Resp 20 H 05/05/20 16:00 BP 90/66 05/05/20 16:00 Pulse Ox 94 05/05/20 16:00 05/05/20 05/05/20 05/05/20 06:59 14:59 22:59 Intake Total 322.633 / 1908.100 38.747 / 38.747 350 / 388.747 Output Total 75 / 176 85 / 85 Balance 247.633 / 1732.100 -46.253 / -46.253 350 / 303.747 Weight last 48 hrs Weight 417 lb Physical Exam Narrative: EXAM NARRATIVE: Const COMMON NORMALS: no acute distress, patient oriented x3 and alert NUTRITIONAL APPEARANCE: obese ORIENTATION/CONSCIOUSNESS: Yes awake OTHER: HENMT COMMON NORMALS: oropharynx normal Neck/C-Spine COMMON NORMALS: no JVD Resp COMMON NORMALS: normal respiratory effort and clear to auscultation bilaterally AUSCULTATION: clear to auscultation bilaterally and crackles (Minimal) Cardio COMMON NORMALS: no JVD, S1 normal heart sound present, S2 normal heart sound present and No murmurs present (Cardio) RHYTHM: abnormal rhythm irregularly irregular HEART SOUNDS: S1 normal heart sound present and S2 normal heart sound present GI COMMON NORMALS: Normal to inspection, nondistended, normoactive bowel sounds present, Soft to palpation and non-tender PALPATION: Yes Soft to palpation Extremity COMMON NORMALS: no joint enlargement and no pedal edema Neuro COMMON NORMALS: patient oriented x3 and moves all extremities SENSORIUM/ORIENTATION: Yes alert Skin COMMON NORMALS: no rashes or lesions noted GENERAL SKIN EXAM: no rashes or lesions noted and dry skin Urinary Catheter Management^: Lynn: Cath Placed During This Visit: yes Urinary Catheter Date of Insertion: 05/05/20 Urinary Catheter Time of Insertion: 11:55 Data : 05/06/20 06:33 05/06/20 06:33 Micro: Microbiology 05/05/20 13:02 Blood Culture - Preliminary Blood SPECIMEN COLLECTED 05/03/20 13:00 Blood Culture - Preliminary Blood Staphylococcus aureus 05/03/20 10:55 Blood Culture - Preliminary Blood Staphylococcus aureus 05/04/20 10:00 Enteric Pathogens (PCR) - Final Stool 05/04/20 10:00 Parasite Antigen Panel - Final Stool Routine Collection 05/04/20 10:00 Occult Blood (FIT) - Final Stool Routine Collection 05/04/20 10:00 C.difficile Toxin B Gene (PCR) - Final Stool Routine Collection A&P Assessment and plan (1) Staphylococcus aureus bacteremia: Status: Acute (2) Sepsis: Status: Acute (3) ANTONIO (acute kidney injury): Status: Acute (4) Diarrhea: Status: Acute (5) Thrombocytopenia: Status: Acute (6) Atrial fibrillation: Status: Acute (7) Cardiomyopathy: Status: Acute Patient has staph bacteremia now. If blood pressure allows, control heart rate with esmolol drip. Heart rate is better controlled now. In case he becomes hypotensive with uncontrolled heart rates, amnio drip can be started. Keep metoprolol p.o. 75 mg 3 times daily. Given his staph bacteremia, please order echocardiogram to assess presence of any vegetations. If source of infection is not determined, in setting of staph bacteremia, ICD might need to be removed. Thank you for involving us with care of this patient. We will continue to follow. 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
[2020-05-05 18:05] LABS: Lactate (Lactic Acid level) 1.7 mmol/L (0.5-2.2)
[2020-05-05 18:06] LABS: Alanine Aminotransferase 42 U/L (0-41); Albumin Level 1.9 g/dL (3.5-5.2); Alkaline Phosphatase 126 IU/L (40-130); Anion Gap 15.5 (5-19); Aspartate Amino Transferase 36 U/L (0-40); Blood Urea Nitrogen 67 mg/dL (8-23); Calcium 7.3 mg/dL (8.5-10.5); Carbon Dioxide 20 mmol/L (22-29); Chloride 100 mmol/L (98-107); Globulin 3.4 g/dL (1.3-4.6); Glucose 133 mg/dL (65-115); Osmolality Calculated 293 mOsm/kg (285-295); Potassium 4.5 mmol/L (3.5-5.1); Sodium 131 mmol/L (136-145); Total Bilirubin 0.6 mg/dL (0.15-1.2); Total Protein 5.3 g/dL (6.6-8.7)
--- NOTE | 2020-05-05 19:51 | P.CONIM_ITS ---
Providers/Reason For Consult Consulting Physican/Specialty*: Althea Mcdonald DO, telenephrology Reason for Consult*: Acute Kidney injury Attending Physician: Berny Wright Primary Care Provider: Nirav Parra DO History of Present Illness History of Present Illness Harry Miles is a 59 year old male admitted 05/03 with upper GI bleed. Prior admission 04/20 with COVID pneumonia. Baseline serum Cr 0.9 mg/dL. Taking entresto as outpatient. Lynn placed today, minimal dark urine. Review of Systems General: Reports: ROS unobtainable due to medical condition Meds/Allergies Home Medications and Allergies Home Medications Medication Instructions Recorded Confirmed Last Taken Type aspirin 81 mg tablet,delayed 81 mg PO DAILY tab 09/29/19 05/03/20 05/02/20 History release nitroglycerin 0.4 mg sublingual 0.4 mg SUBLINGUAL Q5M PRN 09/29/19 05/03/20 Unknown History tablet rivaroxaban 20 mg tablet 20 mg PO DAILY tab 09/29/19 05/03/20 05/02/20 History sacubitril 49 mg-valsartan 51 mg 1 tab PO BID #60 tab 02/09/20 05/03/20 05/03/20 Rx tablet montelukast [Singulair] 10 mg PO DAILY PRN 04/20/20 05/03/20 05/03/20 History albuterol sulfate [Ventolin HFA] 2 puff INHALATION Q4H.RESPIRATORY 04/22/20 05/03/20 04/25/20 Rx PRN #8.5 gm furosemide 40 mg PO DAILY PRN #0 tab 04/22/20 05/03/20 04/24/20 Rx amiodarone 200 mg tablet 200 mg PO Q12H #60 tab 05/01/20 05/03/20 05/03/20 Rx metoprolol tartrate 100 mg tablet 100 mg PO TID #180 tab 05/01/20 05/03/20 05/03/20 Rx acetaminophen [Tylenol Extra 1,000 mg PO PRN 05/03/20 05/03/20 Unknown History Strength] dextromethorphan-guaifenesin 1 tab PO QID PRN 05/03/20 05/03/20 Unknown History [Chest Congestion Relief DM] Allergies Allergy/AdvReac Type Severity Reaction Status Date / Time No Known Allergies Allergy Verified 05/03/20 11:22 Current Medications Current Medications Generic Name Dose Route Start Last Admin Trade Name Freq PRN Reason Stop Dose Admin Acetaminophen 1,000 mg 05/03/20 16:30 05/03/20 19:43 Acetaminophen 500 Mg Tablet PO 1,000 mg DAILY PRN Administration MILD PAIN OR INCREASE TEMP Esmolol HCl 2,500 mg in 250 mls @ 0 mls/hr 05/04/20 18:00 05/05/20 09:00 Brevibloc Drip IV 25.02 mcg/kg/min .Q0M MARGARET 28.4 mls/hr Titration Protocol Per Protocol Linezolid 600 mg in 300 mls @ 300 mls/hr 05/05/20 12:00 05/05/20 16:49 Zyvox Premix IV Infused Q12H MARGARET Infusion Protocol Cefepime HCl 1,000 mg/ Sodium 50 mls @ 100 mls/hr 05/05/20 13:00 05/05/20 16:49 Chloride IV Infused Q24H MARGARET Infusion Protocol Albumin Human 25 gm in 100 mls @ 60 mls/hr 05/05/20 19:15 05/05/20 19:36 Albumin IV 05/05/20 20:54 60 mls/hr ONCE ONE Administration Morphine Sulfate 2 mg 05/03/20 16:18 05/05/20 12:37 Morphine 4 Mg/Ml Sdv 1 Ml IVP 2 mg Q4H PRN Administration SEVERE PAIN Pantoprazole Sodium 40 mg 05/04/20 09:00 05/05/20 08:17 Pantoprazole 40 Mg Sdv IVP 40 mg Q12H MARGARET Administration PFSH Acute PFSH: Medical History Anticoagulation adequate with anticoagulant therapy Xarelto Atrial fibrillation Cardiomyopathy CHF (congestive heart failure) Dyslipidemia History of colon polyps HTN (hypertension) Hypoxia Obesity MIMI on CPAP Sleep apnea Venous insufficiency Surgical History H/O hand surgery Left x2 --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 H/O local excision of skin lesion Right lower leg skin biopsy -- benign History of arthroscopic knee surgery Bilateral History of cardiac radiofrequency ablation History of left inguinal hernia repair History of orchiectomy, unilateral Left -- benign adenomatoid tumor S/P ICD (internal cardiac defibrillator) procedure Family History Other No significant family history Social History Smoking and tobacco status: former smoker Quit status (tobacco): has quit using tobacco Year quit tobacco: Around 2011 Former quit date comment: 100 to [id number] history prior to quitting Alcohol intake: current Alcohol intake frequency: holidays/special occasions only Household members: spouse Marital status: service: No Current occupational status: disabled Vitals/I&O/Wt Last Vital Signs Temp 98.4 F 05/04/20 20:34 Pulse 98 05/05/20 18:00 Resp 18 05/05/20 18:00 BP 89/57 05/05/20 18:00 Pulse Ox 94 05/05/20 18:00 05/05/20 05/05/20 05/05/20 06:59 14:59 22:59 Intake Total 322.633 / 1908.100 38.747 / 38.747 350 / 388.747 Output Total 75 / 176 85 / 85 Balance 247.633 / 1732.100 -46.253 / -46.253 350 / 303.747 Weight last 48 hrs Weight 189.148 kg Physical Exam Const: GENERAL APPEARANCE: appears older than stated age NUTRITIONAL APPEARANCE: obese Resp: EFFORT & INSPECTION: Yes tachypneic AUSCULTATION: rhonchi Cardio: COMMON NORMALS: regular rhythm RHYTHM: regular rhythm Extremity: GENERAL: Yes edema Skin: NARRATIVE SKIN EXAM: LE venous stasis changes Urinary Catheter Management^: Lynn: Cath Placed During This Visit: yes Urinary Catheter Date of Insertion: 05/05/20 Urinary Catheter Time of Insertion: 11:55 Data Labs: Other Labs: serum albumin 1.9, corrected calcium 8.9, urine sodium < 10 Micro: Micro: Microbiology 05/05/20 17:10 Blood Culture - Pr eliminary Blood SPECIMEN [facility] RAN 05/05/20 13:02 Blood Culture - Pr eliminary Blood SPECIMEN [facility] RAN 05/03/20 13:00 Blood Culture - Pr eliminary Blood Staphylococcus aureus 05/03/20 10:55 Blood Culture - Pr eliminary Blood Staphylococcus aureus 05/04/20 10:00 Enteric Pathogens (PCR) - Final Stool 05/04/20 10:[address] Par[address] P [address] - Final Stool Routine Col lection 05/04/20 10:00 Occult Blood (FIT) - Final Stool Routine Col lection Other Data: Other data: CTA, CT ABD 05/03/2020: 1. No central pulmonary emboli. Limited opacification of the pulmonary arteries beyond the lobar branches. 2. Increase in the size and number of scattered pulmonary opacifications since 04/25/2020. Distribution of opacifications can be seen with Covid 19. 3. Small but new pericardial effusion. 4. Moderate cardiomegaly. 5. No acute abdominal or pelvic abnormalities. - normal kidneys A&P Additional A&P Information Impression: 1. Acute oliguric kidney injury, urine sodium consistent with prerenal state. Also received IV contrast 05/03. 2. Hyponatremia 3. Septic shock, Staph bacteremia, on linazolid and cefipime 4. UTI Recommend: Saline bolus and IV infusion, pressors if blood pressure does not respond to IVF. Check CK, follow-up urine culture. Consult Attestations Medical Necessity Statement: Critically ill in ICU Coding Level of Care Code Acute Dowel Sticker Operator for Alexandra Day
[2020-05-05] MEDS: sodium chloride 0.9% 1,000 ML 150 ML IV (21:04)
[2020-05-06] VITALS (21 sets, daily range): BP systolic 89–139; BP diastolic 62–105; PULSE 62–139; RESP 17–22; TEMP 35.8–36.4; O2SAT 93–100
[2020-05-06] MEDS: linezolid premix 600 MG/300 ML PREMIX 300 MG IV ×2 (00:47→11:17)
[2020-05-06] MEDS: sodium chloride 0.9% 1,000 ML 150 ML IV ×3 (02:19→20:13)
[2020-05-06] MEDS: acetaminophen 500 mg Tablet 1000 MG PO (05:06)
--- NOTE | 2020-05-06 06:23 | NUR.SHIFT ---
BP maintaining with maintenance fluids, uneventful night, refused bed bath, AO x4, denies SOB, supine 45 degrees, call light within reach
[2020-05-06 07:08] LABS: Basophils % 0.3 %; Eosinophils % 0.6 %; Hematocrit 29.5 % (42.0-52.0); Hemoglobin 9.6 g/dL (11.7-16.6); Lymphocytes # 0.3 10^3/uL (0.8-4.8); Mean Corpuscular HGB Conc 32.5 g/dL (30.0-36.0); Mean Corpuscular Hemoglobin 32.2 pg (28.0-34.0); Mean Platelet Volume 13.1 fL (7.4-10.4); Monocytes # 0.4 10^3/uL (0.2-0.9); Neutrophils # 5.69 10^3/uL (1.8-7.7); Neutrophils % 88.2 %; Nucleated Red Blood Cells % 0 %; Red Blood Count 2.98 10^6/uL (4.1-5.3); Red Cell Distribution Width 14.9 % (12.1-15.1); White Blood Count 6.5 10^3/uL (4.0-10.0)
[2020-05-06 07:15] LABS: Platelet Count 20 10^3/cmm (130-400)
[2020-05-06 07:45] LABS: Alanine Aminotransferase 29 U/L (0-41); Albumin Level 1.9 g/dL (3.5-5.2); Alkaline Phosphatase 96 IU/L (40-130); Anion Gap 15.3 (5-19); Aspartate Amino Transferase 23 U/L (0-40); Blood Urea Nitrogen 72 mg/dL (8-23); Calcium 7.3 mg/dL (8.5-10.5); Carbon Dioxide 19 mmol/L (22-29); Chloride 101 mmol/L (98-107); Globulin 3.1 g/dL (1.3-4.6); Glucose 121 mg/dL (65-115); Osmolality Calculated 294 mOsm/kg (285-295); Potassium 4.3 mmol/L (3.5-5.1); Sodium 131 mmol/L (136-145); Total Bilirubin 0.6 mg/dL (0.15-1.2)
[2020-05-06 07:46] LABS: Creatine Phosphokinase 23 U/L (39-308)
--- NOTE | 2020-05-06 08:07 | USR_ITS ---
PROCEDURE INFORMATION: Exam: US Unlisted Ultrasound Procedure Exam date and time: 05/06/2020 10:21 AM Age: 59 years old Clinical indication: Symptoms: Right thigh tissue mass; Additional info: R thigh tissue mass TECHNIQUE: Imaging protocol: Unlisted ultrasound procedure (eg, diagnostic, interventional). COMPARISON: No relevant prior studies available. FINDINGS: Procedural imaging: [Ultrasound imaging over the area of interest in the right medial thigh was performed. The examination showed diffuse subcutaneous edema with interstitial fluid. The largest subcutaneous area of fluid measures about 3.4 cm in diameter but this appears to communicate with the other interstitial fluid collections. No discrete mass is identified.. US/US soft tissue/extremity [id number] IMPRESSION: There is prominent subcutaneous edema in the right medial thigh. No focal masses are seen.
--- NOTE | 2020-05-06 09:24 | P.PN_ITS ---
Subjective Subjective: Interval history: reports pleuritic left sided chest pain, with inspiration and movement Medications: Reviewed: Yes Vitals/I&O/Wt Last Vital Signs Temp 98.4 F 05/04/20 20:34 Pulse 107 H 05/06/20 07:00 Resp 21 H 05/06/20 07:00 BP 111/68 05/06/20 07:00 Pulse Ox 96 05/06/20 07:00 05/05/20 05/06/20 05/06/20 22:59 06:59 14:59 Intake Total 350 / 388.747 787.5 / 9846.249 8908.5 / 1082.5 Output Total 82 / 167 Balance 350 / 303.747 705.5 / 6612.189 6144.5 / 1082.5 Weight last 48 hrs Weight 191.87 kg Physical Exam Const: COMMON NORMALS: alert GENERAL APPEARANCE: cooperative NUTRITIONAL APPEARANCE: obese Extremity: GENERAL: Yes edema Neuro: SENSORIUM/ORIENTATION: Yes alert Urinary Catheter Management^: Lynn: Cath Placed During This Visit: yes Reason for Continuing Indwelling Catheter: Accurate Measurement of Urinary Output in Critically Ill Patients Urinary Catheter Date of Insertion: 05/05/20 Urinary Catheter Time of Insertion: 11:55 Data : 05/06/20 06:33 05/06/20 06:33 Other Labs: CK 23 calcium 7.3, albumin 1.9 Micro: Microbiology 05/05/20 11:30 Urine Culture - Preliminary Urine,Clean Catch Staphylococcus aureus 05/05/20 13:02 Blood Culture - Preliminary Blood Gram positive cocci 05/05/20 17:10 Blood Culture - Preliminary Blood SPECIMEN COLLECTED 05/03/20 13:00 Blood Culture - Preliminary Blood Staphylococcus aureus 05/03/20 10:55 Blood Culture - Preliminary Blood Staphylococcus aureus 05/04/20 10:00 Enteric Pathogens (PCR) - Final Stool 05/04/20 10:00 Parasite Antigen Panel - Final Stool Routine Collection A&P Additional A&P Information Impression: 1. Acute oliguric kidney injury, urine sodium consistent with prerenal state. Also received IV contrast 05/03. 2. Hyponatremia 3. Sepsis, persistent Staph bacteremia, on linazolid and cefipime. Has not required pressor initiation 4. UTI Recommend: continue IVF, Check Echo, follow-up urine culture. Discussed possible need for hemodialysis if renal function does not improve. Attestations Medical Necessity Statement*: critically ill in ICU Coding Level of Care Code Acute Superintendent Pier for Alexandra Day
--- NOTE | 2020-05-06 09:28 | USR_ITS ---
PROCEDURE INFORMATION: Exam: US Unlisted Ultrasound Procedure Exam date and time: 05/06/2020 10:51 AM Age: 59 years old Clinical indication: Symptoms: Left lower extremity ulcers (medial ankle and lateral ankle area(s); Additional info: Lle ulcers (1 medially, 1 laterally), assess if abscess TECHNIQUE: Imaging protocol: Unlisted ultrasound procedure (eg, diagnostic, interventional). COMPARISON: No relevant prior studies available. FINDINGS: Procedural imaging: Ultrasound imaging around the left ankle is performed over the areas of ulcerations. Examination showed diffuse subcutaneous edema with interstitial fluid. No discrete mass or abscess collections are seen. US/US soft tissue/extremity [id number] IMPRESSION: There is diffuse subcutaneous edema around the ankle. No discrete masses are seen.
--- NOTE | 2020-05-06 09:28 | USCV_ITS ---
Harry Miles Age: 59 Gender: M : 1960 Exam Date: 05/06/2020 09:49 Ordering Phys: Berny Wright MD Technologist: Karla Redmond Exam Location: [facility] [place] Indication: Staph bacteremia, PPM BP: 111 / 68 HR: 75 Rhythm: Atrial fibrillation Technical Quality: Poor because of body habitus MEASUREMENTS (Male / Female) Normal Values 2D ECHO LV Diastolic Diameter PLAX 7.2 cm 4.2 - 5.9 / 3.9 - 5.3 cm LV Systolic Diameter PLAX 6.2 cm LV Chamber Size 5.1 cm IVS Diastolic Thickness 1.6 cm 0.6 - 1.0 / 0.6 - 0.9 cm IVS Systolic Thickness 2.2 cm LVPW Diastolic Thickness 2.0 cm 0.6 - 1.0 / 0.6 - 0.9 cm LVPW Systolic Thickness 2.1 cm RV Chamber Size 4.4 cm LVOT Diameter 2.2 cm LV Ejection Fraction 2D Teich 30.4 % LA Diameter 4.9 cm LA Width 3.9 cm LA Height 7.8 cm RA Width 4.9 cm RA Height 6.4 cm Aorta at Sinotubular Diameter 3.6 cm M-MODE LV Diastolic Diameter MM 7.2 cm 4.2 - 5.9 / 3.9 - 5.3 cm LV Systolic Diameter MM 6.2 cm LV Ejection Fraction MM Teich 29.5 % IVS Diastolic Thickness MM 1.1 cm 0.6 - 1.0 / 0.6 - 0.9 cm IVS Systolic Thickness MM 1.2 cm LVPW Diastolic Thickness MM 1.8 cm 0.6 - 1.0 / 0.6 - 0.9 cm LVPW Systolic Thickness MM 2.1 cm RV Diastolic Diameter MM 1.2 cm Aortic Annulus Diameter 3.9 cm LA Ao Ratio MM 1.5 MV E Point Septal Separation 3.2 cm DOPPLER AV Peak Velocity 139.0 cm/s LVOT Peak Velocity 102.0 cm/s AV Area Cont Eq vti 2.7 cm squared AV Area Cont Eq pk 2.7 cm squared MV Area PHT 2.6 cm squared MV E' Velocity 102.0 cm/s TR Peak Velocity 268.2 cm/s TR Peak Gradient 28.8 mmHg TR Mean Velocity 202.7 cm/s TR Mean Gradient 17.3 mmHg TR Velocity Time Integral 76.0 cm TV Peak E Velocity 135.0 cm/s Right Atrial Pressure 3.0 mmHg Pulmonary Artery Systolic Pressu 31.8 mmHg FINDINGS Left Ventricle This is a limited quality echocardiogram with poor quality images because of body habitus. Severely dilated left ventricle. The systolic function is severely reduced with EF of 20 to 25%. Regional wall motion abnormalities cannot be assessed because of limited visualization. Diastolic function is indeterminate because of atrial fibrillation. Right Ventricle Grossly normal sized. Cannot assess the function because of visualization. Pacemaker lead is seen. No vegetation is seen on pacemaker lead however because of limited visualization cannot completely rule out. Right Atrium The right atrium is enlarged. Pacemaker lead is noted. Left Atrium The left atrium is enlarged Mitral Valve Grossly normal mitral valve. No vegetations are visualized. There is mild mitral regurgitation. Aortic Valve Not well-visualized however no significant stenosis is noted.. There is no aortic regurgitation. Tricuspid Valve Grossly normal. Can not rule out vegetations because of poor visualization. There is mild tricuspid regurgitation noted. RVSP is 30 to 35 mmHg. Pulmonic Valve Not well-visualized. Pericardium Normal pericardium without effusion. Aorta Mildly dilated aortic root. CONCLUSIONS This is technically very limited study because of patient's body habitus. LV systolic function is grossly severely reduced with EF of 20 to 25%. Dilated LV. Biatrial enlargement is seen. Diastolic function is indeterminate because of atrial fibrillation. No vegetations are seen however cannot rule out presence of vegetations on the valves or pacemaker leads because of poor visualization of cardiac structures. Compared to prior echocardiogram from 08/11/2018, LV systolic function has further worsened and dilation of left ventricle is noted. Gavino Ware MD (Electronically Signed) Final Date: 06 May 2020 13:48 S
[2020-05-06] MEDS: pantoprazole 40 mg SDV IVP ×2 (11:16→20:13)
--- NOTE | 2020-05-06 11:47 | PM.PN ---
Subjective Subjective: Interval history: States he has been feeling lousy, although overall not as bad today. Denies pain in particular location. Denies trouble breathing. Vitals/I&O/Wt Last Vital Signs Temp 97.3 F L 05/06/20 10:00 Pulse 87 05/06/20 10:00 Resp 19 H 05/06/20 10:00 BP 99/65 05/06/20 10:00 Pulse Ox 96 05/06/20 10:00 05/05/20 05/06/20 05/06/20 22:59 06:59 14:59 Intake Total 350 / 388.747 787.5 / 1834.128 5763.5 / 1442.5 Output Total 82 / 167 Balance 350 / 303.747 705.5 / 5619.028 8943.5 / 1442.5 Weight last 48 hrs Weight 191.87 kg Physical Exam Const: COMMON NORMALS: no acute distress, patient oriented x3 and alert GENERAL APPEARANCE: cooperative and comfortable NUTRITIONAL APPEARANCE: obese ORIENTATION/CONSCIOUSNESS: Yes awake OTHER: Up in bed. Appears more alert and is more interactive compared to yesterday. HENMT: COMMON NORMALS: oropharynx normal Neck/C-Spine: COMMON NORMALS: no JVD Resp: COMMON NORMALS: normal respiratory effort and clear to auscultation bilaterally AUSCULTATION: clear to auscultation bilaterally and crackles (Minimal) Cardio: COMMON NORMALS: no JVD, S1 normal heart sound present, S2 normal heart sound present and No murmurs present (Cardio) RHYTHM: abnormal rhythm irregularly irregular HEART SOUNDS: S1 normal heart sound present and S2 normal heart sound present GI: COMMON NORMALS: Normal to inspection, nondistended, normoactive bowel sounds present, Soft to palpation and non-tender PALPATION: Yes Soft to palpation Extremity: COMMON NORMALS: no joint enlargement and no pedal edema OTHER: Chronic venous stasis swelling of lower extremities, chronic ulceration Neuro: COMMON NORMALS: patient oriented x3 and moves all extremities SENSORIUM/ORIENTATION: Yes alert Skin: COMMON NORMALS: no rashes or lesions noted GENERAL SKIN EXAM: no rashes or lesions noted and dry skin OTHER: Chronic venous stasis dermatitis. Crusted over ulcers with yellowish crusts, no discharge on posteromedial and lateral aspects of left lower leg above the ankle. Urinary Catheter Management^: Lynn: Cath Placed During This Visit: yes Reason for Continuing Indwelling Catheter: Accurate Measurement of Urinary Output in Critically Ill Patients Urinary Catheter Date of Insertion: 05/05/20 Urinary Catheter Time of Insertion: 11: Data : 05/06/20 06:33 05/06/20 06:33 Micro: Microbiology 05/05/20 11:30 Urine Culture - Preliminary Urine,Clean Catch Staphylococcus aureus 05/05/20 13:02 Blood Culture - Preliminary Blood Gram positive cocci 05/05/20 17:10 Blood Culture - Preliminary Blood SPECIMEN COLLECTED 05/03/20 13:00 Blood Culture - Preliminary Blood Staphylococcus aureus 05/03/20 10:55 Blood Culture - Preliminary Blood Staphylococcus aureus 05/04/20 10:00 Enteric Pathogens (PCR) - Final Stool 05/04/20 10:00 Parasite Antigen Panel - Final Stool Routine Collection A&P Assessment and plan (1) Sepsis: This appears with some improvement today. Tachycardia is better. He is afebrile. Leukocytosis resolved. He is little bit stronger today. Again gram-positive cocci growing in blood culture from 05/05. Only 1 culture could be drawn due to difficulty with access. Repeat blood culture today. Blood pressures are better, although still somewhat soft. Avoid hypotension. Requested to assess SVI. Pending additional assessment with regards to source of sepsis, however, so far not finding a source that is more suspicious than wounds on his lower extremity. Possible superimposed bacterial pneumonia following viral pneumonia given persistent and worsened patchy infiltrates on lung imaging, although his oxygenation has been rather stable. He has mild intermittent cough, not complaining of severe shortness of breath. Follow-up urine culture. Possible UTI. Continue linezolid, cefepime. Has pacemaker in place. Status: Acute (2) Staphylococcus aureus bacteremia: As above. No fluid collection at pacemaker pocket. Assessing soft tissue ultrasound of right thigh, and left lower extremity ulcerations. No other external wounds. CT thoracic lumbar spine without obvious concerning abnormality, although done noncontrast. Echocardiogram. Will need SARAHY down the line. Status: Acute (3) Thrombocytopenia: This is most likely related to sepsis. No schistocytes on preliminary peripheral smear. Lower although sepsis improving today. Recheck CBC 4PM, if further decrease, transfuse PLT. Briefly discussed with her software designer was available for consultation if necessary. Stool studies are negative. H. pylori stool antigen pending, antibody negative. Status: Acute (4) Acute upper GI bleed: Hemoglobin with slow gradual decline, 9.6, monitor. PLT lower, although sepsis improving today. Transfuse if getting any lower on recheck today. Continue PPI pushes. Check H pylori stool antigen pending, antibody negative. Trial of anticoagulation may be complicated by low platelet level in addition to GIB. On anticoagulation with Xarelto, also on aspirin. Holding these medications. Status: Acute (5) Paroxysmal atrial fibrillation with RVR: Appreciate cardiac assessment. Esmolol drip as needed/tolerating. Metoprolol as tolerating. Anticoagulation is on hold due to GI bleeding and thrombocytopenia. Cardiac monitoring. Status: Acute (6) Diarrhea: Likely secondary to melena and upper GI bleed. Has received antibiotic course recently. Negative C. difficile, stool studies. Status: Acute (7) Venous insufficiency: Chronic bilateral lower extremity venous insufficiency with swelling, chronic ulceration. Status: Acute (8) Sleep apnea: Nightly CPAP Status: Acute (9) Pneumonia due to COVID-19 virus: Recently hospitalized. With mild residual hypoxia around 3 L of oxygen by nasal cannula. Concern for superimposed bacterial PNA. Antibiotics as above. Obtain sputum culture. Status: Acute (10) ANTONIO (acute kidney injury): Worse last night. Cr stabilized today. Discussed w nephrology and pt. Maintain BP. Boluses as needed/toelrating. Assess SVI. Orders acute kidney injury, no hydronephrosis/obstruction on CT abdomen pelvis on presentation. Requested UA, urine studies. Blood pressure soft this morning, given bolus. Monitor blood pressures, avoid hypotension. Treat sepsis as above. Hold ARB. Possible contribution of contrast-induced nephropathy. Status: Acute Additional A&P Information Other chronic medical problems noted Congestive heart failure, monitor for exacerbation HLD HTN Attestations Medical Necessity Statement*: Continue admission for assessment management of sepsis, staphylococcal bacteremia, with recent COVID-19 infection, thrombocytopenia, anemia, A. fib with RVR, pacemaker in place, acute kidney injury, and a number of other comorbidities. Coding Level of Care Code Acute Top Hat Body Maker for [facility] Diagnoses Sepsis A41.9 Staphylococcus aureus bacteremia R78.81; B95.61 Thrombocytopenia D69.6 Acute upper GI bleed K92.2 Paroxysmal atrial fibrillation with RVR I48.0 Diarrhea R19.7 Venous insufficiency I87.2 Sleep apnea G47.30 Pneumonia due to COVID-19 virus U07.1; J12.89 ANTONIO (acute kidney injury) N17.9
[2020-05-06] MEDS: montelukast sodium 10 mg Tablet PO (12:54)
[2020-05-06] MEDS: morphine 4 mg/mL SDV 1 mL 2 MG IVP ×2 (12:54→20:14)
[2020-05-06] MEDS: cefepime 1,000 MG in sodium chloride 0.9% (plus) 50 ML 100 MG IV (12:56)
--- NOTE | 2020-05-06 13:00 | PC.NURSE ---
FLUID RESPONSIVENESS ASSESSMENT DONE BY PASSIVE LEG RAISE WITH THE STARLING VuduETAH MONITOR. SVI-36 CI-3.3 [id number] SVI DELTA - 13.6%, FLUID RESPONSIVE DR ESCOBAR NOTIFIED & NEW ORDERS RECEIVED. NS 500ML BOLUS GIVEN.
[2020-05-06] MEDS: sodium chloride 0.9% 500 ML 999 ML IV (14:17)
[2020-05-06 17:30] LABS: Basophils % 0.3 %; Eosinophils # 0.1 10^3/uL (0.0-0.8); Eosinophils % 0.8 %; Hematocrit 31.1 % (42.0-52.0); Hemoglobin 9.9 g/dL (11.7-16.6); Lymphocytes # 0.5 10^3/uL (0.8-4.8); Lymphocytes % 8.3 %; Mean Corpuscular HGB Conc 31.8 g/dL (30.0-36.0); Mean Corpuscular Hemoglobin 31.5 pg (28.0-34.0); Monocytes # 0.7 10^3/uL (0.2-0.9); Monocytes % 11.4 %; Neutrophils # 4.68 10^3/uL (1.8-7.7); Neutrophils % 78.2 %; Nucleated Red Blood Cells % 0 %; Red Blood Count 3.14 10^6/uL (4.1-5.3); Red Cell Distribution Width 15.3 % (12.1-15.1)
[2020-05-06 17:39] LABS: Mean Platelet Volume 13.9 fL (7.4-10.4)
[2020-05-06 17:43] LABS: Platelet Count 17 10^3/cmm (130-400)
--- NOTE | 2020-05-06 19:28 | PC.NURSE ---
PLATELETS TRANSFUSED, NO REACTION NOTED/REPORTED. TOLERATED WELL VERBALIZED UNDERSTANDING OF SIGNS OF TRANSFUSION REACTION TO REPORT.
[2020-05-06] MEDS: lanolin oint 7 gm 1 APPLIC TOPICAL (19:30)
--- NOTE | 2020-05-06 21:13 | P.PN_ITS ---
Subjective Subjective: Interval history: Patient's renal function is still abnormal. Being treated for sepsis given he has positive blood cultures with staph aureus. Patient's complaints are of back ache as he is staying in bed most of the time. Vitals/I&O/Wt Last Vital Signs Temp 96.5 F L 05/06/20 19:25 Pulse 92 05/06/20 20:09 Resp 22 H 05/06/20 19:25 BP 129/86 05/06/20 20:09 Pulse Ox 96 05/06/20 20:09 05/06/20 05/06/20 05/06/20 06:59 14:59 22:59 Intake Total 787.5 / 9221.577 7439.5 / 3772.5 1299 / 5071.5 Output Total 82 / 167 140 / 140 Balance 705.5 / 4669.945 0459.5 / 3772.5 1159 / 4931.5 Weight last 48 hrs Weight 423 lb Physical Exam Narrative: EXAM NARRATIVE: EXAM NARRATIVE: Const COMMON NORMALS: no acute distress, patient oriented x3 and alert NUTRITIONAL APPEARANCE: obese ORIENTATION/CONSCIOUSNESS: Yes awake OTHER: HENMT COMMON NORMALS: oropharynx normal Neck/C-Spine COMMON NORMALS: no JVD Resp COMMON NORMALS: normal respiratory effort and clear to auscultation bilaterally AUSCULTATION: clear to auscultation bilaterally and crackles (Minimal) Cardio COMMON NORMALS: no JVD, S1 normal heart sound present, S2 normal heart sound present and No murmurs present (Cardio) RHYTHM: abnormal rhythm irregularly irregular HEART SOUNDS: S1 normal heart sound present and S2 normal heart sound present GI COMMON NORMALS: Normal to inspection, nondistended, normoactive bowel sounds present, Soft to palpation and non-tender PALPATION: Yes Soft to palpation Extremity COMMON NORMALS: no joint enlargement and no pedal edema Neuro COMMON NORMALS: patient oriented x3 and moves all extremities SENSORIUM/ORIENTATION: Yes alert Skin COMMON NORMALS: no rashes or lesions noted GENERAL SKIN EXAM: no rashes or lesions noted and dry skin Urinary Catheter Management^: Lynn: Cath Placed During This Visit: yes Reason for Continuing Indwelling Catheter: Accurate Measurement of Urinary Output in Critically Ill Patients Urinary Catheter Date of Insertion: 05/05/20 Urinary Catheter Time of Insertion: 11:55 Data : 05/08/20 03:00 05/08/20 03:00 Micro: Microbiology 05/05/20 13:02 Blood Culture - Preliminary Blood Gram positive cocci 05/05/20 17:10 Blood Culture - Preliminary Blood Gram positive cocci 05/06/20 16:45 Blood Culture - Preliminary Blood SPECIMEN COLLECTED 05/06/20 14:20 Gram Stain - Final Sputum - Expectorated Sputum 05/06/20 11:45 Blood Culture - Preliminary Blood SPECIMEN COLLECTED 05/05/20 11:30 Urine Culture - Preliminary Urine,Clean Catch Staphylococcus aureus A&P Assessment and plan (1) Staphylococcus aureus bacteremia: Status: Acute (2) Sepsis: Status: Acute Qualifiers: Sepsis type: sepsis due to unspecified organism Sepsis acute organ dysfunction status: with acute organ dysfunction Severe sepsis acute organ dysfunction type: unspecified Severe sepsis shock status: without septic shock Qualified Code(s): A41.9 - Sepsis, unspecified organism; R65.20 - Severe sepsis without septic shock (3) ANTONIO (acute kidney injury): Status: Acute (4) Diarrhea: Status: Acute (5) Thrombocytopenia: Status: Acute (6) Atrial fibrillation: Status: Acute (7) Cardiomyopathy: Status: Acute Patient has staph bacteremia now. Heart rate is better controlled now.Continue PO Metoprolol 50mg TID In case he becomes hypotensive with uncontrolled heart rates, amio drip can be started. Given his staph bacteremia, ECHO was performed that did not show vegetations but was a limited quality echocardiogram. Can get opinion from ID regarding need for removal of ICD in case focus of infection is not found and with staph bacteremia. Will set up SARAHY to rule out vegetations. Thank you for involving us with care of this patient. We will continue to follow. Attestations Medical Necessity Statement*: Care expected to cross 2 midnights Coding Level of Care Code Acute Operating Room Nurse for [facility] Fwd Diagnoses Staphylococcus aureus bacteremia R78.81; B95.61 Sepsis A41.9; R65.20 Sepsis type: sepsis due to unspecified organism Sepsis acute organ dysfunction status: with acute organ dysfunction Severe sepsis acute organ dysfunction type: unspecified Severe sepsis shock status: without septic shock ANTONIO (acute kidney injury) N17.9 Diarrhea R19.7 Thrombocytopenia D69.6 Atrial fibrillation I48.91 Cardiomyopathy I42.9
[2020-05-07] VITALS (14 sets, daily range): BP systolic 105–150; BP diastolic 68–104; PULSE 72–117; RESP 18–20; TEMP 36.4–36.9; O2SAT 95–100; BMI 62.4
[2020-05-07] MEDS: linezolid premix 600 MG/300 ML PREMIX 300 MG IV ×3 (00:17→23:42)
[2020-05-07] MEDS: morphine 4 mg/mL SDV 1 mL 2 MG IVP ×3 (00:24→18:09)
[2020-05-07 03:51] LABS: Basophils % 0.2 %; Eosinophils # 0.1 10^3/uL (0.0-0.8); Eosinophils % 1.4 %; Hematocrit 29.4 % (42.0-52.0); Hemoglobin 9.2 g/dL (11.7-16.6); Lymphocytes # 0.5 10^3/uL (0.8-4.8); Lymphocytes % 9.2 %; Mean Corpuscular HGB Conc 31.3 g/dL (30.0-36.0); Mean Corpuscular Hemoglobin 31.7 pg (28.0-34.0); Mean Corpuscular Volume 101.4 fL (80-94); Mean Platelet Volume 12.9 fL (7.4-10.4); Monocytes # 0.5 10^3/uL (0.2-0.9); Monocytes % 9.9 %; Neutrophils # 3.99 10^3/uL (1.8-7.7); Neutrophils % 77.7 %; Nucleated Red Blood Cells % 0 %; Red Cell Distribution Width 15.2 % (12.1-15.1); White Blood Count 5.1 10^3/uL (4.0-10.0)
[2020-05-07 04:56] LABS: Alanine Aminotransferase 21 U/L (0-41); Albumin Level 2.1 g/dL (3.5-5.2); Alkaline Phosphatase 88 IU/L (40-130); Aspartate Amino Transferase 16 U/L (0-40); Blood Urea Nitrogen 65 mg/dL (8-23); Calcium 7.2 mg/dL (8.5-10.5); Carbon Dioxide 17 mmol/L (22-29); Chloride 103 mmol/L (98-107); Globulin 2.9 g/dL (1.3-4.6); Glomerular Filtration Rate 18.6 mL/min (90-130); Glucose 106 mg/dL (65-115); Osmolality Calculated 293 mOsm/kg (285-295); Sodium 132 mmol/L (136-145); Total Bilirubin 0.5 mg/dL (0.15-1.2)
[2020-05-07 05:25] LABS: Anion Gap 16.2 (5-19); Potassium 4.2 mmol/L (3.5-5.1)
[2020-05-07 05:58] LABS: Platelet Count 25 10^3/cmm (130-400); Slide Review Slide Review Perform
[2020-05-07] MEDS: sodium chloride 0.9% 1,000 ML 150 ML IV ×3 (06:28→19:11)
--- NOTE | 2020-05-07 09:20 | PC.CHAP ---
Pastoral Care Encounter/Spiritual Assessment Type of Contact [] Declined neuropsychologist visit [] Patient/Family/Request visit [] Outpatient visit [] Follow-up visit [] Physician referral [] Code/Alert [] Routine visit [] Staff referral [] Actively dying [] Patient sleeping [] Family support [] [] Out of room [] Palliative care [] [] Receiving care in room [] Pre-surgical visit [] Trauma [] Long length of stay [] ICU visit [] Other: Relational/Emotional Strength [] Patient feels connected with others/family/visitors/staff [] Distress [] Loneliness/isolation [] Abandonment Spirituality of Patient [] Person of Maribeth [] Attends U[place] of their Maribeth [] Believes in Prayer [] Reads Bible or Temple materials [] There are Spiritual issues to be addressed Radio Repairer Domestic Interventions [x] Prayer [] Active listening [] Non-anxious presence [] Spiritual/emotional support [] Crisis/trauma care [] Spiritual counseling [] Bereavement support [] Provided bereavement packet [] Provided Bible/devotional materials [] Provided toy/stuffed animal, coloring book to patient or family member [] Provided Communion [] Anointing/[place] [] Salvation [x] Completed spiritual assessment [] Other: Impact on Illness or Injury [] Angry [] Fearful [] Anxious [] Often cries [] Exhaustion [] Unable to work [] Unable to attend judaism [] Unable to walk/stand [] Unable to read [] Unable to drive [] Unable to eat/drink [] Unable to sleep [] Unable to be with family [] Patient intubated [] Other: Summary Time spent with patient
[2020-05-07] MEDS: montelukast sodium 10 mg Tablet PO (11:21)
[2020-05-07] MEDS: pantoprazole 40 mg SDV IVP ×2 (11:21→21:03)
[2020-05-07] MEDS: metoprolol tartrate 50 mg Tablet PO ×3 (11:21→22:51)
[2020-05-07] MEDS: cefepime 1,000 MG in sodium chloride 0.9% (plus) 50 ML 100 MG IV (13:20)
--- NOTE | 2020-05-07 13:43 | PC.NURSE ---
PT VERY TIRED TODAY. HAS SLEPT ALMOST ALL MORNING. STATES THAT HE DOES FEEL A LITTLE BIT BETTER. NO NEEDS VOICED. NO S/SX OF DISTRESS. CONTINUE TO ALLOW PT TO SLEEP.
--- NOTE | 2020-05-07 15:28 | P.PN_ITS ---
Subjective Subjective: Interval history: No new complaints. + cough Medications: Reviewed: Yes Vitals/I&O/Wt Last Vital Signs Temp 96.5 F L 05/06/20 19:25 Pulse 92 05/07/20 12:00 Resp 22 H 05/06/20 19:25 BP 109/78 05/07/20 12:00 Pulse Ox 99 05/07/20 12:00 05/07/20 05/07/20 05/07/20 06:59 14:59 22:59 Intake Total 1150 / 6221.5 1600 / 1600 Output Total 325 / 325 Balance 1150 / 6081.5 1275 / 1275 Weight last 48 hrs Weight 191.87 kg Weight 191.87 kg Physical Exam Urinary Catheter Management^: Lynn: Cath Placed During This Visit: yes Reason for Continuing Indwelling Catheter: Accurate Measurement of Urinary Output in Critically Ill Patients Urinary Catheter Date of Insertion: 05/05/20 Urinary Catheter Time of Insertion: 11:55 Data : 05/07/20 02:35 05/07/20 02:35 Micro: Microbiology 05/05/20 17:10 Blood Culture - Preliminary Blood Staphylococcus aureus 05/05/20 13:02 Blood Culture - Preliminary Blood Staphylococcus aureus 05/06/20 14:20 Gram Stain - Final Sputum - Expectorated Sputum Sputum Culture - Preliminary 05/06/20 11:45 Blood Culture - Preliminary Blood Gram positive cocci 05/05/20 11:30 Urine Culture - Final Urine,Clean Catch Staphylococcus aureus 05/06/20 16:45 Blood Culture - Preliminary Blood SPECIMEN COLLECTED A&P Additional A&P Information Impression: 1. Acute oliguric kidney injury, urine sodium consistent with prerenal state. Also received IV contrast 05/03. Urine output is increasing slightly, serum creatinine lower, but 6 liters positive 2. Hyponatremia, mild, stable 3. Sepsis, persistent Staph aureus bacteremia, on linazolid and cefipime. Has not required pressor initiation. Echo done today. 4. UTI, also with staph aureus Recommend: reduce IVF. No indication for hemodialysis at this time. Attestations Medical Necessity Statement*: critically ill in ICU Time Spent in Patient Care: 16 - 35 minutes Coding Level of Care Code Acute Slot Machine Key Person for [facility]
--- NOTE | 2020-05-07 18:02 | P.PN_ITS ---
Subjective Subjective: Interval history: Patient has been tired most of the day today. No specific new complaints. Current to make more urine. No gross bleeding. Medications: Reviewed: Yes Vitals/I&O/Wt Last Vital Signs Temp 98.4 F 05/07/20 16:00 Pulse 72 05/07/20 16:00 Resp 20 H 05/07/20 16:00 BP 121/97 05/07/20 16:00 Pulse Ox 98 05/07/20 16:00 05/07/20 05/07/20 05/07/20 06:59 14:59 22:59 Intake Total 1150 / 6221.5 1600 / 1600 Output Total 325 / 325 Balance 1150 / 6081.5 1275 / 1275 Weight last 48 hrs Weight 191.87 kg Weight 191.87 kg Physical Exam Const: OTHER: Looks tired but, oriented x3, cooperative, morbidly obese HENMT: OTHER: Normocephalic atraumatic, moist mucus membranes Eye: OTHER: Extraocular movements intact Neck/C-Spine: OTHER: Supple Resp: OTHER: Clear to auscultation bilaterally anteriorly Cardio: OTHER: Regular rate and rhythm distant heart sounds GI: OTHER: Abdomen soft, obese, nontender, with decreased bowel sounds : OTHER: Lynn catheter Extremity: NARRATIVE EXTREMITY EXAM: 1+ Edema Neuro: OTHER: Face symmetric, speech clear, moves all extremities though remains generally weak, no tremors Psych: OTHER: Normal affect Skin: OTHER: Patient with several wounds to the left posterior leg above the ankle that have scabbed over. Not definitively eschar formation at this point in time. No purulence, odor, drainage. There is some surrounding increased coloration but it does not appear to be acutely changed. No focal area of warmth or drainage noted. Urinary Catheter Management^: Lynn: Cath Placed During This Visit: yes Reason for Continuing Indwelling Catheter: Accurate Measurement of Urinary Output in Critically Ill Patients Urinary Catheter Date of Insertion: 05/05/20 Urinary Catheter Time of Insertion: 11:55 Data : 05/07/20 02:35 05/07/20 02:35 Micro: Microbiology 05/06/20 16:45 Blood Culture - Preliminary Blood NEGATIVE TO DATE 05/05/20 17:10 Blood Culture - Preliminary Blood Staphylococcus aureus 05/05/20 13:02 Blood Culture - Preliminary Blood Staphylococcus aureus 05/06/20 14:20 Gram Stain - Final Sputum - Expectorated Sputum Sputum Culture - Preliminary 05/06/20 11:45 Blood Culture - Preliminary Blood Gram positive cocci 05/05/20 11:30 Urine Culture - Final Urine,Clean Catch Staphylococcus aureus A&P Assessment and plan (1) Sepsis: Secondary to staph aureus bacteremia which is persisting although he is overall improved Status: Acute Qualifiers: Sepsis type: sepsis due to unspecified organism Sepsis acute organ dysfunction status: with acute organ dysfunction Severe sepsis acute organ dysfunction type: unspecified Severe sepsis shock status: without septic shock Qualified Code(s): A41.9 - Sepsis, unspecified organism; R65.20 - Severe sepsis without septic shock (2) Staphylococcus aureus bacteremia: No clear foci of infection has been identified. Possible sources include skin but there is no area that is definitely acutely infected presently. He has a pacemaker in place but no fluid collection was noted around this. Bacterial pneumonia status post recent Covid pneumonia is a consideration but he does not clinically come across that way. No evidence of urine showing staph. Echo is pending but will probably need a SARAHY Status: Acute (3) Thrombocytopenia: Starting to trend upward hopefully, felt secondary to above Status: Acute (4) Acute upper GI bleed: Has had some drop in hemoglobin from admission but no gross bleeding Status: Acute (5) Paroxysmal atrial fibrillation with RVR: Cardiology following, chronically on Xarelto Status: Acute (6) Diarrhea: Likely secondary to melena and upper GI bleed. Has received antibiotic course recently. Negative C. difficile, stool studies. Status: Acute (7) Venous insufficiency: Chronic bilateral lower extremity venous insufficiency with swelling, chronic ulceration. Status: Acute (8) Sleep apnea: Nightly CPAP Status: Acute (9) Pneumonia due to COVID-19 virus: Recently hospitalized. With mild residual hypoxia around 3 L of oxygen by nasal cannula. Status: Acute (10) ANTONIO (acute kidney injury): Nephrology following, slow improvement, avoiding nephrotoxic medications Status: Acute (11) Morbid obesity with BMI of 60.0-69.9, adult: Status: Chronic Additional A&P Information Other chronic medical problems noted Congestive heart failure HLD HTN Deconditioning Will discuss with cardiology consideration for SARAHY, appreciate their assistance otherwise Continue linezolid May want to consider white cell tag scan although I do not know what the limit is for nuclear imaging in terms of weight Would benefit from wound care Continue to hold anticoagulation Monitor for signs of bleeding BiPAP at night Oxygen therapy as needed Appreciate nephrology assistance Monitor renal function and output Continue physical therapy physical therapy Consider transfer to the floor tomorrow if he remains stable Start discussing disposition plans Supportive care otherwise SCDs for DVT prophylaxis Currently on PPI Full code Attestations Medical Necessity Statement*: Requires ongoing inpatient stay secondary to continued bacteremia without a clear source. Plans are as noted. Coding Level of Care Code Acute Correspondence Review Clerk for [facility] Fwd Diagnoses Sepsis A41.9; R65.20 Sepsis type: sepsis due to unspecified organism Sepsis acute organ dysfunction status: with acute organ dysfunction Severe sepsis acute organ dysfunction type: unspecified Severe sepsis shock status: without septic shock Staphylococcus aureus bacteremia R78.81; B95.61 Thrombocytopenia D69.6 Acute upper GI bleed K92.2 Paroxysmal atrial fibrillation with RVR I48.0 Diarrhea R19.7 Venous insufficiency I87.2 Sleep apnea G47.30 Pneumonia due to COVID-19 virus U07.1; J12.89 ANTONIO (acute kidney injury) N17.9 Morbid obesity with BMI of 60.0-69.9, adult E66.01; Z68.44
[2020-05-08] VITALS (50 sets, daily range): BP systolic 96–154; BP diastolic 67–115; PULSE 74–93; RESP 12–25; TEMP 36.4–37.1; O2SAT 90–100
[2020-05-08 03:13] LABS: Basophils % 0.1 %; Eosinophils # 0.1 10^3/uL (0.0-0.8); Eosinophils % 1.4 %; Hematocrit 30.8 % (42.0-52.0); Hemoglobin 9.9 g/dL (11.7-16.6); Lymphocytes # 0.5 10^3/uL (0.8-4.8); Lymphocytes % 7.7 %; Mean Corpuscular HGB Conc 32.1 g/dL (30.0-36.0); Mean Corpuscular Hemoglobin 31.4 pg (28.0-34.0); Mean Corpuscular Volume 97.8 fL (80-94); Mean Platelet Volume 12.7 fL (7.4-10.4); Monocytes # 0.7 10^3/uL (0.2-0.9); Neutrophils # 5.53 10^3/uL (1.8-7.7); Neutrophils % 78.7 %; Nucleated Red Blood Cells % 0 %; Platelet Count 29 10^3/cmm (130-400); Red Blood Count 3.15 10^6/uL (4.1-5.3); Red Cell Distribution Width 15.4 % (12.1-15.1)
[2020-05-08 03:30] LABS: Alanine Aminotransferase 18 U/L (0-41); Albumin Level 2.1 g/dL (3.5-5.2); Alkaline Phosphatase 81 IU/L (40-130); Anion Gap 14.5 (5-19); Aspartate Amino Transferase 12 U/L (0-40); Blood Urea Nitrogen 77 mg/dL (8-23); Calcium 7.4 mg/dL (8.5-10.5); Carbon Dioxide 19 mmol/L (22-29); Chloride 103 mmol/L (98-107); Globulin 3.3 g/dL (1.3-4.6); Glomerular Filtration Rate 17.4 mL/min (90-130); Glucose 101 mg/dL (65-115); Osmolality Calculated 297 mOsm/kg (285-295); Potassium 4.5 mmol/L (3.5-5.1); Sodium 132 mmol/L (136-145); Total Bilirubin 0.6 mg/dL (0.15-1.2); Total Protein 5.4 g/dL (6.6-8.7)
--- NOTE | 2020-05-08 07:59 | PC.CHAP ---
Pastoral Care Encounter/Spiritual Assessment Type of Contact [] Declined boarding kennel or cattery operator visit [] Patient/Family/Request visit [] Outpatient visit [] Follow-up visit [] Physician referral [] Code/Alert [] Routine visit [] Staff referral [] Actively dying [] Patient sleeping [] Family support [] [] Out of room [] Palliative care [] [] Receiving care in room [] Pre-surgical visit [] Trauma [] Long length of stay [] ICU visit [] Other: Relational/Emotional Strength [] Patient feels connected with others/family/visitors/staff [] Distress [] Loneliness/isolation [] Abandonment Spirituality of Patient [] Person of Maribeth [] Attends Orthodox of their [place] [] Believes in Prayer [] Reads Bible or Latter-Day materials [] There are Spiritual issues to be addressed Mortician Helper Interventions [x] Prayer [] Active listening [] Non-anxious presence [] Spiritual/emotional support [] Crisis/trauma care [] Spiritual counseling [] Bereavement support [] Provided bereavement packet [] Provided Bible/devotional materials [] Provided toy/stuffed animal, coloring book to patient or family member [] Provided Communion [] Anointing/[place] [] Salvation [x] Completed spiritual assessment [] Other: Impact on Illness or Injury [] Angry [] Fearful [] Anxious [] Often cries [] Exhaustion [] Unable to work [] Unable to attend taoist [] Unable to walk/stand [] Unable to read [] Unable to drive [] Unable to eat/drink [] Unable to sleep [] Unable to be with family [] Patient intubated [] Other: Summary Time spent with patient
[2020-05-08] MEDS: metoprolol tartrate 50 mg Tablet PO ×3 (08:07→21:01)
[2020-05-08] MEDS: pantoprazole 40 mg SDV IVP ×2 (08:07→21:01)
--- NOTE | 2020-05-08 08:48 | DCPLANNER ---
Pg 2 of IM updated and reviewed with pt. No questions, copy provided.
--- NOTE | 2020-05-08 10:02 | PC.NURSE ---
Confusion This nurse answered call light and patient stated that he was not sure what was going on and he thought he was hallucinating. He stated I keep seeing a protein shake and I know I'm suppose to drink it to make me feel better but I know its not there right now. Patient has also been asleep all morning and was talking with his eyes closed. When asked patient was alert and orientated x3. Will continue to monitor.
--- NOTE | 2020-05-08 10:06 | P.PN_ITS ---
Subjective Subjective: Interval history: Out of bed in reclining chair. States he is feeling a little better. + cough Medications: Reviewed: Yes Vitals/I&O/Wt Last Vital Signs Temp 98.8 F 05/08/20 04:00 Pulse 82 05/08/20 09:30 Resp 17 05/08/20 09:30 BP 130/83 05/08/20 09:30 Pulse Ox 96 05/08/20 09:30 05/07/20 05/08/20 05/08/20 22:59 06:59 14:59 Intake Total 870 / 2820 300 / 3120 Output Total 200 / 525 110 / 635 40 / 40 Balance 670 / 2295 190 / 2485 -40 / -40 Weight last 48 hrs Weight 200.516 kg Weight 191.87 kg Physical Exam Urinary Catheter Management^: Lynn: Cath Placed During This Visit: yes Reason for Continuing Indwelling Catheter: Accurate Measurement of Urinary Output in Critically Ill Patients Urinary Catheter Date of Insertion: 05/05/20 Urinary Catheter Time of Insertion: 11:55 Data : 05/08/20 03:00 05/08/20 03:00 Micro: Microbiology 05/06/20 16:45 Blood Culture - Preliminary Blood NEGATIVE TO DATE 05/05/20 17:10 Blood Culture - Preliminary Blood Staphylococcus aureus 05/05/20 13:02 Blood Culture - Preliminary Blood Staphylococcus aureus 05/06/20 14:20 Gram Stain - Final Sputum - Expectorated Sputum Sputum Culture - Preliminary 05/06/20 11:45 Blood Culture - Preliminary Blood Gram positive cocci 05/05/20 11:30 Urine Culture - Final Urine,Clean Catch Staphylococcus aureus Other data: echo EF 20 - 25%, no obvious vegetations A&P Additional A&P Information Impression: 1. Acute oliguric kidney injury, urine sodium consistent with prerenal state. Also received IV contrast 05/03. Urine output is increasing 2. Hyponatremia, mild, stable 3. Sepsis, Staph aureus bacteremia, on linazolid and cefipime. Echo technically difficult, vegetations not seen 4. UTI, also with staph aureus Recommend: Continue IVF, antibiotics. No indication for hemodialysis at this time. Attestations Medical Necessity Statement*: critically ill Time Spent in Patient Care: 16 - 35 minutes Coding Level of Care Code Acute Registered Nurse Behavioral Health for [facility]
[2020-05-08] MEDS: morphine 4 mg/mL SDV 1 mL 2 MG IVP ×2 (10:49→18:09)
--- NOTE | 2020-05-08 11:10 | P.PN_ITS ---
Subjective Subjective: Interval history: Patient feels better but is lethargic. His heart rates are well controlled. Plan has been to perform SARAHY which patient agrees to, however his platelets counts have been low. Vitals/I&O/Wt Last Vital Signs Temp 98.8 F 05/08/20 04:00 Pulse 80 05/08/20 10:30 Resp 18 05/08/20 10:49 BP 132/81 05/08/20 10:30 Pulse Ox 98 05/08/20 10:30 05/07/20 05/08/20 05/08/20 22:59 06:59 14:59 Intake Total 870 / 2820 300 / 3120 Output Total 200 / 525 110 / 635 40 / 40 Balance 670 / 2295 190 / 2485 -40 / -40 Weight last 48 hrs Weight 442 lb 1 oz Weight 423 lb Physical Exam Narrative: EXAM NARRATIVE: Const COMMON NORMALS: no acute distress, patient oriented x3 and alert NUTRITIONAL APPEARANCE: obese ORIENTATION/CONSCIOUSNESS: Yes awake OTHER: HENMT COMMON NORMALS: oropharynx normal Neck/C-Spine COMMON NORMALS: no JVD Resp COMMON NORMALS: normal respiratory effort and clear to auscultation bilaterally AUSCULTATION: clear to auscultation bilaterally and crackles (Minimal) Cardio COMMON NORMALS: no JVD, S1 normal heart sound present, S2 normal heart sound present and No murmurs present (Cardio) RHYTHM: abnormal rhythm irregularly irregular HEART SOUNDS: S1 normal heart sound present and S2 normal heart sound present GI COMMON NORMALS: Normal to inspection, nondistended, normoactive bowel sounds present, Soft to palpation and non-tender PALPATION: Yes Soft to palpation Extremity COMMON NORMALS: no joint enlargement and significant pedal edema is noted Neuro COMMON NORMALS: patient oriented x3 and moves all extremities SENSORIUM/ORIENTATION: Yes alert Skin COMMON NORMALS: no rashes or lesions noted GENERAL SKIN EXAM: no rashes or lesions noted and dry skin Urinary Catheter Management^: Lynn: Cath Placed During This Visit: yes Reason for Continuing Indwelling Catheter: Accurate Measurement of Urinary Output in Critically Ill Patients Urinary Catheter Date of Insertion: 05/05/20 Urinary Catheter Time of Insertion: 11:55 Data : 05/08/20 03:00 05/08/20 03:00 Micro: Microbiology 05/06/20 16:45 Blood Culture - Preliminary Blood NEGATIVE TO DATE 05/05/20 17:10 Blood Culture - Preliminary Blood Staphylococcus aureus 05/05/20 13:02 Blood Culture - Preliminary Blood Staphylococcus aureus 05/06/20 14:20 Gram Stain - Final Sputum - Expectorated Sputum Sputum Culture - Preliminary 05/06/20 11:45 Blood Culture - Preliminary Blood Gram positive cocci 05/05/20 11:30 Urine Culture - Final Urine,Clean Catch Staphylococcus aureus A&P Assessment and plan (1) Staphylococcus aureus bacteremia: Status: Acute (2) Sepsis: Status: Acute Qualifiers: Sepsis type: sepsis due to unspecified organism Sepsis acute organ dysfunction status: with acute organ dysfunction Severe sepsis acute organ dysfunction type: unspecified Severe sepsis shock status: without septic shock Qualified Code(s): A41.9 - Sepsis, unspecified organism; R65.20 - Severe sepsis without septic shock (3) ANTONIO (acute kidney injury): Status: Acute (4) Diarrhea: Status: Resolved (5) Thrombocytopenia: Status: Acute (6) Atrial fibrillation: Status: Acute (7) Cardiomyopathy: Status: Chronic Patient has staph bacteremia now. Heart rate is better controlled now.Continue PO Metoprolol 50mg TID In case he becomes hypotensive with uncontrolled heart rates, amio drip can be started. Given his staph bacteremia, ECHO was performed that did not show vegetations but was a limited quality echocardiogram. Can get opinion from ID regarding need for removal of ICD in case focus of infection is not found and with staph bacteremia. Will set up SARAHY to rule out vegetations but have not been able to perform it because of thrombocytopenia. Thank you for involving us with care of this patient. We will continue to follow. Attestations 2 Medical Necessity Statement*: Care expected to cross 2 midnights Coding Level of Care Code Acute Counter Sales Representative for [facility] Fwd Diagnoses Staphylococcus aureus bacteremia R78.81; B95.61 Sepsis A41.9; R65.20 Sepsis type: sepsis due to unspecified organism Sepsis acute organ dysfunction status: with acute organ dysfunction Severe sepsis acute organ dysfunction type: unspecified Severe sepsis shock status: without septic shock ANTONIO (acute kidney injury) N17.9 Diarrhea R19.7 Thrombocytopenia D69.6 Atrial fibrillation I48.91 Cardiomyopathy I42.9
[2020-05-08] MEDS: linezolid premix 600 MG/300 ML PREMIX 300 MG IV (11:31)
[2020-05-08] MEDS: cefepime 1,000 MG in sodium chloride 0.9% (plus) 50 ML 100 MG IV (12:49)
[2020-05-08] MEDS: sodium chloride 0.9% 1,000 ML 75 ML IV (14:11)
--- NOTE | 2020-05-08 18:04 | PM.PN ---
Subjective Subjective: Interval history: Patient continues to slowly feel better. He is doing much better sitting in the bariatric chair. Continues to not want to eat very much. Laboratory studies are slowly improving. Vitals/I&O/Wt Last Vital Signs Temp 98.8 F 05/08/20 04:00 Pulse 85 05/08/20 16:00 Resp 18 05/08/20 16:00 BP 135/101 05/08/20 16:00 Pulse Ox 100 05/08/20 16:00 05/08/20 05/08/20 05/08/20 06:59 14:59 22:59 Intake Total 300 / 3120 1350 / 1350 Output Total 110 / 635 40 / 40 Balance 190 / 2485 1310 / 1310 Weight last 48 hrs Weight 200.516 kg Weight 191.87 kg Physical Exam Const: OTHER: Looks tired but, oriented x3, cooperative, morbidly obese HENMT: OTHER: Normocephalic atraumatic, moist mucus membranes Eye: OTHER: Extraocular movements intact Neck/C-Spine: OTHER: Supple Resp: OTHER: Clear to auscultation bilaterally anteriorly Cardio: OTHER: Regular rate and rhythm distant heart sounds GI: OTHER: Abdomen soft, obese, nontender, with decreased bowel sounds : OTHER: Lynn catheter Extremity: NARRATIVE EXTREMITY EXAM: 1+ Edema Neuro: OTHER: Face symmetric, speech clear, moves all extremities though remains generally weak, no tremors Psych: OTHER: Normal affect Skin: OTHER: Patient with several wounds to the left posterior leg above the ankle that have scabbed over. Not definitively eschar formation at this point in time. No purulence, odor, drainage. There is some surrounding increased coloration but it does not appear to be acutely changed. No focal area of warmth or drainage noted. Urinary Catheter Management^: Lynn: Cath Placed During This Visit: yes Reason for Continuing Indwelling Catheter: Accurate Measurement of Urinary Output in Critically Ill Patients Urinary Catheter Date of Insertion: 05/05/20 Urinary Catheter Time of Insertion: 11:55 Data : 05/08/20 03:00 05/08/20 03:00 Micro: Microbiology 05/06/20 14:20 Gram Stain - Final Sputum - Expectorated Sputum Sputum Culture - Final 05/06/20 16:45 Blood Culture - Preliminary Blood Staphylococcus aureus 05/06/20 11:45 Blood Culture - Preliminary Blood Staphylococcus aureus 05/05/20 17:10 Blood Culture - Final Blood Staphylococcus aureus 05/05/20 13:02 Blood Culture - Final Blood Staphylococcus aureus 05/03/20 13:00 Blood Culture - Final Blood Staphylococcus aureus 05/03/20 10:55 Blood Culture - Final Blood Staphylococcus aureus A&P Assessment and plan (1) Sepsis: Secondary to staph aureus bacteremia which is persisting although he is overall improved Status: Acute Qualifiers: Sepsis type: sepsis due to unspecified organism Sepsis acute organ dysfunction status: with acute organ dysfunction Severe sepsis acute organ dysfunction type: unspecified Severe sepsis shock status: without septic shock Qualified Code(s): A41.9 - Sepsis, unspecified organism; R65.20 - Severe sepsis without septic shock (2) Staphylococcus aureus bacteremia: No clear foci of infection has been identified. Possible sources include skin but there is no area that is definitely acutely infected presently. He has a pacemaker in place but no fluid collection was noted around this. Bacterial pneumonia status post recent Covid pneumonia is a consideration but he does not clinically come across that way. No evidence of urine showing staph. Echo transthoracic did not show any obvious vegetations but was suboptimal. Tentatively planning for SARAHY as improves Status: Acute (3) Thrombocytopenia: Starting to trend upward hopefully, felt secondary to above, off of chronic anticoagulation presently Status: Acute (4) Acute upper GI bleed: Has had some drop in hemoglobin from admission but no gross bleeding Status: Acute (5) Paroxysmal atrial fibrillation with RVR: Cardiology following, can be difficult to control, recommendation is for amiodarone drip if he has significant hypotension, chronically on Xarelto at home though this is held presently Status: Chronic (6) Diarrhea: Currently resolved, felt secondary to melena and upper GI bleed, stool for C. difficile was negative Status: Resolved (7) Venous insufficiency: Chronic bilateral lower extremity venous insufficiency with swelling, chronic ulceration. Status: Chronic (8) Sleep apnea: Nightly CPAP Status: Chronic (9) Pneumonia due to COVID-19 virus: Recently hospitalized. With mild residual hypoxia around 3 L of oxygen by nasal cannula. Status: Acute (10) ANTONIO (acute kidney injury): Nephrology following, slow improvement, avoiding nephrotoxic medications Status: Acute (11) Morbid obesity with BMI of 60.0-69.9, adult: Status: Chronic (12) Cardiomyopathy: Looks to chronically be on Entresto which is presently held in setting of acute kidney injury Status: Chronic Additional A&P Information Hypertension Hyperlipidemia Deconditioning Transferring to floor today Cardiology will consider SARAHY Continue linezolid Blood cultures in the morning Discussed with Dr. Ferreira who has agreed to see patient in consultation from an infectious disease standpoint Would benefit from wound care upon discharge, had been going to wound care clinic in the past Continue to hold anticoagulation secondary to thrombocytopenia Monitor for signs of bleeding and/or thrombosis BiPAP at night Oxygen therapy as needed Appreciate nephrology assistance Monitor renal function and output Continue physical therapy physical therapy As platelets improve consider PICC line placement, anticipating long-term antibiotics Discussed with wound care clinic who recommended Betadine paint to wounds over the back of the left leg twice a day for now Disposition is going to depend on plan of care from a cardiac standpoint in terms of identifying a source of the staph bacteremia along with conditioning. Patient is currently so weak a.m. starting to wonder if he is not going to need placement for rehabilitation. Could potentially even be a situation in which we consider long-term acute care Supportive care otherwise SCDs for DVT prophylaxis Currently on PPI Full code Had an opportunity to talk to patient as well as his and both were given an opportunity to ask questions Reviewed with nursing staff Attestations Medical Necessity Statement*: Requires ongoing inpatient stay for continued management as noted above. He is starting to improve but slowly. 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9, adult E66.01; Z68.44 Cardiomyopathy I42.9
--- NOTE | 2020-05-08 18:42 | PC.NURSE ---
Chair Patient was transferred to chair earlier in shift and pt refused to let staff turn and place pillows. Pt requested to stay in the chair overnight.
[2020-05-09] VITALS (12 sets, daily range): BP systolic 98–151; BP diastolic 60–83; PULSE 79–88; RESP 13–20; TEMP 35.9–36.4; O2SAT 97–100
[2020-05-09] MEDS: morphine 4 mg/mL SDV 1 mL 2 MG IVP (00:04)
[2020-05-09] MEDS: linezolid premix 600 MG/300 ML PREMIX 300 MG IV ×2 (00:05→11:33)
[2020-05-09] MEDS: sodium chloride 0.9% 1,000 ML 75 ML IV (02:11)
[2020-05-09] MEDS: pantoprazole 40 mg SDV IVP ×2 (08:22→21:39)
[2020-05-09] MEDS: metoprolol tartrate 50 mg Tablet PO ×3 (08:22→20:52)
[2020-05-09 15:15] LABS: Alanine Aminotransferase 22 U/L (0-41); Albumin Level 2.1 g/dL (3.5-5.2); Alkaline Phosphatase 79 IU/L (40-130); Aspartate Amino Transferase 21 U/L (0-40); Calcium 7.3 mg/dL (8.5-10.5); Carbon Dioxide 16 mmol/L (22-29); Chloride 99 mmol/L (98-107); Globulin 3.4 g/dL (1.3-4.6); Glomerular Filtration Rate 15.4 mL/min (90-130); Glucose 110 mg/dL (65-115); Osmolality Calculated 292 mOsm/kg (285-295); Sodium 127 mmol/L (136-145); Total Bilirubin 0.7 mg/dL (0.15-1.2); Total Protein 5.5 g/dL (6.6-8.7)
[2020-05-09 15:25] LABS: Anion Gap 17.3 (5-19); Potassium 5.3 mmol/L (3.5-5.1)
[2020-05-09 15:26] LABS: Blood Urea Nitrogen 88 mg/dL (8-23)
--- NOTE | 2020-05-09 15:28 | PM.PN ---
Subjective Subjective: Interval history: He is concerned about discharge plans. No new complaints. Medications: Reviewed: Yes Vitals/I&O/Wt Last Vital Signs Temp 97.3 F L 05/09/20 11:03 Pulse 79 05/09/20 11:03 Resp 18 05/09/20 11:03 BP 115/70 05/09/20 11:03 Pulse Ox 99 05/09/20 11:03 05/09/20 05/09/20 05/09/20 06:59 14:59 22:59 Intake Total 1200 / 2550 Output Total 100 / 170 Balance 1100 / 2380 Weight last 48 hrs Weight 208.335 kg Weight 200.516 kg Physical Exam Extremity: GENERAL: Yes edema Urinary Catheter Management^: Lynn: Cath Placed During This Visit: yes Reason for Continuing Indwelling Catheter: Acute Urinary Retention or Obstruction Urinary Catheter Date of Insertion: 05/05/20 Urinary Catheter Time of Insertion: 11:55 Data : 05/08/20 03:00 05/09/20 14:51 Micro: Microbiology 05/06/20 14:20 Gram Stain - Final Sputum - Expectorated Sputum Sputum Culture - Final 05/06/20 16:45 Blood Culture - Preliminary Blood Staphylococcus aureus 05/06/20 11:45 Blood Culture - Preliminary Blood Staphylococcus aureus 05/05/20 17:10 Blood Culture - Final Blood Staphylococcus aureus 05/05/20 13:02 Blood Culture - Final Blood Staphylococcus aureus 05/03/20 13:00 Blood Culture - Final Blood Staphylococcus aureus 05/03/20 10:55 Blood Culture - Final Blood Staphylococcus aureus A&P Additional A&P Information Impression: 1. Acute oliguric kidney injury, urine sodium consistent with prerenal state. Also received IV contrast 05/03. 2. Hyponatremia, worse, volume expanded 3. Sepsis, Staph aureus bacteremia, on linazolid and cefipime. Echo technically difficult, vegetations not seen 4. UTI, also with staph aureus 5. Metabolic acidosis Recommend: Discontinue IVF. Will try 1 dose 80 mg IV lasix. Add sodium bicarbonate. No indication for hemodialysis at this time. 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
[2020-05-09 15:59] LABS: Basophils % 0.1 %; Eosinophils # 0.1 10^3/uL (0.0-0.8); Eosinophils % 1.2 %; Hematocrit 30.2 % (42.0-52.0); Hemoglobin 9.5 g/dL (11.7-16.6); Lymphocytes # 0.6 10^3/uL (0.8-4.8); Lymphocytes % 8.5 %; Mean Corpuscular HGB Conc 31.5 g/dL (30.0-36.0); Mean Corpuscular Hemoglobin 31.4 pg (28.0-34.0); Mean Corpuscular Volume 99.7 fL (80-94); Mean Platelet Volume 12.6 fL (7.4-10.4); Monocytes # 0.5 10^3/uL (0.2-0.9); Monocytes % 7.8 %; Neutrophils # 5.56 10^3/uL (1.8-7.7); Neutrophils % 80.2 %; Nucleated Red Blood Cells % 0 %; Platelet Count 34 10^3/cmm (130-400); Red Blood Count 3.03 10^6/uL (4.1-5.3); Red Cell Distribution Width 15.9 % (12.1-15.1); White Blood Count 6.9 10^3/uL (4.0-10.0)
[2020-05-09] MEDS: FUROsemide 10 mg/mL SDV 10mL 80 MG IVP (16:02)
[2020-05-09 16:19] LABS: INR 1.13 (0.8-1.2)
[2020-05-09 16:20] LABS: Partial Thromboplastin Time 29.6 SECONDS (23.9-36.7)
--- NOTE | 2020-05-09 17:53 | PC.NURSE ---
SHIFT SUMMARY PATIENT WAS AWAKE MOST OF THE MORNING AND HAS BEEN RESTING MOST OF THE AFTERNOON. LAB ALONG WITH THIS NURSE AND SEVERAL OTHER NURSES WERE UNABLE TO GET A BLOOD DRAW ON PATIENT. EVENTUALLY THIS AFTERNOON THIS NURSE ALONG WITH LUZ FERMIN WERE SUCCESSFUL IN RECEIVING BLOOD. PATIENT UNABLE TO RECEIVE PICC LINE AT THIS TIME DUE TO PLATELET COUNT. GREY SALAZAR FROM ER PLACED AN IJ IN PATIENT FOR BLOOD DRAWS AT THIS TIME. BLOOD SUCCESSFULLY DRAWN FROM IJ AND SENT TO LAB. PATIENT HAD A LOW BP READING THIS AFTERNOON, BUT WAS RECHECKED BY THIS NURSE AND WAS NORMAL. PATIENT ONLY HAD OUT 100ML OF DARK URINE. THIS NURSE ADMINISTERED 80MG OF LASIX. PATIENT RESTING IN BED. STILL ON 4LNC. CONTINUE TO MONITOR.
--- NOTE | 2020-05-09 19:49 | P.CONIM_ITS ---
Providers/Reason For Consult Consulting Physican/Specialty*: Josie Ferreira MD/Infectious Disease Reason for Consult*: Persistent MSSA bacteremia Attending Physician: Miriam Ratliff MD Primary Care Provider: Nirav Parra DO History of Present Illness History of Present Illness Harry Miles is a 59 year old male with CHF, Atrial fibrillation, difficult to control, with ablation performed in the past, currently on amiodarone and metoprolol, cardiomyopathy s/p AICD, chronic systolic HF, current Ef 20-25% worsened from prior, LE B/L lymphedema, sleep apnea on CPAP. He was recently admitted between 04/20-04/22 for COVID 19 pneumonia (diagnosed 04/10) , A fib with RVR needing cardizem gtt. he was treated with remdesivir x 3 days, Decadron x 5 days, and azithromycin, as needed albuterol MDI, also was continued on Xarelto. Lasix was switched to prn. He was discharged with 2lpm and continued to have issues with rapid HR. He returned on 05/03, initially c/o melanotic stools. Noted to have leukocytosis 16.5, thrombocytopenia 71K and noted to be in afib with RVR. Hospital course has been notable for worsening trombocytopenia with min at 25K (discharged with 188), worsening cough, worsening ANTONIO with cr up to 4, poor urine output and hypoxic respiratory failure. Xarelto is on hold. Lfts mildly elevated upon admission now resolved. Id consult requested as blood cx have returned with Staph aureus, with persistent bacteremia on 05/03, 05/05,05/06. No cx data available from 05/07 and 05/08, thus far pending cx from 05/09 with no growth. No blood cx data available from admission 04/20-04/22. Pertinent radiological data : CT CAP 05/03 with B/L scattered opacifications, mediastinal and hilar lymphadenopathy, small pericardial effusion, no gross abdominal fluid collections. No splenomegaly. CT thoracolumbar spine on 05/05 without any signs of osteomyelitis or discitis (non contrast studies). Soft tissue US of LE without any focal collections. TTE 05/06 limited study due to patient's obesity with LVEF 20-25%, dilated LV, biatrial enlargement, no gross vegetations. Patient has an AICD in place, SARAHY not performed for lead evaluation due to thrombocytopenia. No orthopedic hardware per patient history. No ports. No picc lines on recent admission. Maintained on peripheral Iv access for duration of current admission. Patient does not recall any thrombophlebitis or complications at iv sites. Multiple areas of skin excoriation over LE which are chronic appearing. Antimicrobial treatment has thus far included: Cefepime 1g iv q24h 05/05-05/08, Linezolid 600mg q12h 05/05-05/10. Tmax during admission 99.7F. Systolic BP maintained during course of admission. Review of Systems General: Reports: 10 or more systems reviewed and unremarkable except in HPI and below Const: Denies: fever(s), chills or body aches Eyes: Denies: change in vision, blurry vision or photophobia ENMT: Reports: hoarseness; Denies: throat pain, enlarged tonsils, odynophagia or nasal congestion Card: Denies: chest pain, palpitations, irregular heart rhythm, edema, swelling of feet/ankles, lightheadedness, pre-syncope, dyspnea on exertion or orthopnea Resp: Denies: dyspnea, productive cough, non-productive cough, wheezing, stridor, pain on inspiration, change in phlegm color, hemoptysis or chest congestion GI: Denies: abdominal pain, nausea, vomiting, hematemesis, coffee ground emesis, dysphagia, heartburn, diarrhea, constipation, GI cramping, change in stool character, hematochezia or melena : Denies: flank pain, dysuria, urinary frequency, urinary urgency, urinary hesitancy or hematuria Musc: Denies: neck pain, back pain, extremity pain, joint swelling, joint warmth or deformity Neuro: Denies: headache(s), numbness in extremities, weakness in extremities, sensory changes, difficulty walking, frequent falls, dizziness, vertigo, behavioral changes, Slurred speech present or seizure-like activity Psych: Denies: anxiety, depression, suicidal ideation or homicidal ideation Endo: Denies: polyuria, polydipsia, tired all the time, cold intolerance or hot flashes Amandeep/Lymph: Denies: easy bruising or easy bleeding Meds/Allergies Home Medications and Allergies Home Medications Medication Instructions Recorded Confirmed Last Taken Type aspirin 81 mg tablet,delayed 81 mg PO DAILY tab 09/29/19 05/03/20 05/02/20 History release nitroglycerin 0.4 mg sublingual 0.4 mg SUBLINGUAL Q5M PRN 09/29/19 05/03/20 Unknown History tablet rivaroxaban 20 mg tablet 20 mg PO DAILY tab 09/29/19 05/03/20 05/02/20 History sacubitril 49 mg-valsartan 51 mg 1 tab PO BID #60 tab 02/09/20 05/03/20 05/03/20 Rx tablet montelukast [Singulair] 10 mg PO DAILY PRN 04/20/20 05/03/20 05/03/20 History albuterol sulfate [Ventolin HFA] 2 puff INHALATION Q4H.RESPIRATORY 04/22/20 05/03/20 04/25/20 Rx PRN #8.5 gm furosemide 40 mg PO DAILY PRN #0 tab 04/22/20 05/03/20 04/24/20 Rx amiodarone 200 mg tablet 200 mg PO Q12H #60 tab 05/01/20 05/03/20 05/03/20 Rx metoprolol tartrate 100 mg tablet 100 mg PO TID #180 tab 05/01/20 05/03/20 05/03/20 Rx acetaminophen [Tylenol Extra 1,000 mg PO PRN 05/03/20 05/03/20 Unknown History Strength] dextromethorphan-guaifenesin 1 tab PO QID PRN 05/03/20 05/03/20 Unknown History [Chest Congestion Relief DM] Allergies Allergy/AdvReac Type Severity Reaction Status Date / Time No Known Allergies Allergy Verified 05/03/20 11:22 Current Medications Current Medications Generic Name Dose Route Start Last Admin Trade Name Freq PRN Reason Stop Dose Admin Linezolid 600 mg in 300 mls @ 300 mls/hr 05/05/20 12:00 05/09/20 11:33 Zyvox Premix IV 300 mls/hr Q12H MARGARET Administration Protocol Lanolin 1 applic 05/06/20 19:03 05/06/20 19:30 Lanolin Oint 7 Gm TOPICAL 1 tube PRN PRN Administration DRYNESS Metoprolol Tartrate 50 mg 05/07/20 09:08 05/09/20 17:30 Metoprolol Tartrate 50 Mg Tablet PO 50 mg TID MARGARET Administration Morphine Sulfate 2 mg 05/03/20 16:18 05/09/20 00:04 Morphine 4 Mg/Ml Sdv 1 Ml IVP 2 mg Q4H PRN Administration SEVERE PAIN Pantoprazole Sodium 40 mg 05/04/20 09:00 05/09/20 08:22 Pantoprazole 40 Mg Sdv IVP 40 mg Q12H MARGARET Administration PFSH Acute PFSH: Medical History Anticoagulation adequate with anticoagulant therapy Xarelto Atrial fibrillation Cardiomyopathy Ejection fraction around 20 to 25% CHF (congestive heart failure) Dyslipidemia History of colon polyps HTN (hypertension) Hypoxia Obesity MIMI on CPAP Sleep apnea Venous insufficiency Surgical History H/O hand surgery Left x2 --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 H/O local excision of skin lesion Right lower leg skin biopsy -- benign History of arthroscopic knee surgery Bilateral History of cardiac radiofrequency ablation History of left inguinal hernia repair History of orchiectomy, unilateral Left -- benign adenomatoid tumor S/P ICD (internal cardiac defibrillator) procedure Family History Other No significant family history Social History Smoking and tobacco status: former smoker Quit status (tobacco): has quit using tobacco Year quit tobacco: Around 2011 Former quit date comment: 100 to [id number] history prior to quitting Alcohol intake: current Alcohol intake frequency: holidays/special occasions only Household members: spouse Marital status: service: No Current occupational status: disabled Vitals/I&O/Wt Last Vital Signs Temp 97.6 F 05/09/20 19:38 Pulse 81 05/09/20 19:38 Resp 18 05/09/20 19:38 BP 134/80 05/09/20 19:38 Pulse Ox 100 05/09/20 19:38 05/09/20 05/09/20 05/09/20 06:59 14:59 22:59 Intake Total 1200 / 2550 Output Total 100 / 170 100 / 100 Balance 1100 / 2380 -100 / -100 Weight last 48 hrs Weight 208.335 kg Weight 200.516 kg Physical Exam Narrative: EXAM NARRATIVE: GEN: Awake, alert and oriented,morbidly obese man laying in bed in no apparent acute distress. Appears tachypneic on exam, however denies feeling short of breath at this time. 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: Moves B/L upper extremities in bed, unable ot move lower extremities due to pain and edema Urinary Catheter Management^: Lynn: Cath Placed During This Visit: yes Reason for Continuing Indwelling Catheter: Acute Urinary Retention or Obstruction Urinary Catheter Date of Insertion: 05/05/20 Urinary Catheter Time of Insertion: 11:55 Data Micro: Micro: Microbiology 05/09/20 18:20 Blood Culture - Pr eliminary Blood SPECIMEN COLLEC RAN 05/09/20 18:30 Blood Culture - Pr eliminary Blood SPECIMEN COLLE RAN Imaging^: CT Abd/Pel: I personally reviewed and interpreted this imaging study as follows: My impression: B/L Scattered pulmonary opacifications , not significantly changed since 04/25 per my read Radiologist's impression: CT/CT angio chest w abd pel w con IMPRESSION: 1. No central pulmonary emboli. Limited opacification of the pulmonary arteries beyond the lobar branches. 2. Increase in the size and number of scattered pulmonary opacifications since 04/25/2020. Distribution of opacifications can be seen with Covid 19. 3. Small but new pericardial effusion. 4. Moderate cardiomegaly. 5. No acute abdominal or pelvic abnormalities. Echo: Radiologist's impression: CONCLUSIONS This is technically very limited study because of patient's body habitus. LV systolic function is grossly severely reduced with EF of 20 to 25%. Dilated LV. Biatrial enlargement is seen. Diastolic function is indeterminate because of atrial fibrillation. No vegetations are seen however cannot rule out presence of vegetations on the valves or pacemaker leads because of poor visualization of cardiac structures. Compared to prior echocardiogram from 08/11/2018, LV systolic function has further worsened and dilation of left ventricle is noted. Other Data: Attestation for Other Data: I personally reviewed and interpreted the following: Other data: Culture data : Bood cultures: 05/09: pending, NGTD 05/07 and 05/08: N/A 05/06 : MSSA 05/05: MSSA 05/04: N/A 05/03: 4/4 MSSA 05/05: urine cx : MSSA 05/06: sputum cx : resp mikki 05/04: C diff PCR: negative A&P Assessment and plan (1) Septicemia: Persistent MSSA bacteremia 05/03, 05/05, 05/06, intermittent cx N/A , from 05/09 thus far NGTD Thus far received rx with cefepime 1g iv q24h 05/05-05/08 and linezolid since 05/05- cx and suscetibility from 05/03 with MSSA, pending on subsequent blood cultures Start cefazolin 2g iv q8h (cr cl ~35 using IBW) for organism directed therapy for MSSA. DOC for MSSA would be oxacillin (not feasible due to poor iv access and q6h dosing) vs cefazolin will likely discontinue linezolid after discussion of susceptibilities with micro lab today, the latter can contribute to thrombocytopenia. source of bacteremia not entirely clear, CT thoracolumbar spine negative for discitis/epidural abscess, SSTI possible but wounds appear to be at baseline , no gross cellulitis, urine not the likely source with normal anatomy and no indwelling hardware, more likely that + urine cx represents high grade bacteremia. Patient denies any PICC lines, thrombophlebitis etc. Unlikely that pneumonia is the cause as CT findings do not apperar impressive enough to explain persistent bacteremia. Cannot exclude endocarditis vs ICD infection, recommend SARAHY when feasible per cardiology, if expected to be delayed, can attempt WBC tagged study, however may be limited due to morbid obesity continue to obatin daily blood cx until negative x 3 days hold off on PICC line until blood cx negative for at least 72 hrs Okay to get CVC and temporary HD catheter if needed Status: Acute (2) Staphylococcus aureus bacteremia: As above Status: Acute (3) ANTONIO (acute kidney injury): Renal recommendations noted May be contrast related vs GN from MSSA septicemia Unlikely AIN from b lactams given that low platelets present on admission Status: Acute (4) Thrombocytopenia: May be related to sepsis No schistocytes on preliminary peripheral smear. Not received heparin products, unlikely HIT Status: Acute (5) Atrial fibrillation: management per cardiology Status: Acute Consult Attestations Medical Necessity Statement: MSSA septicemia, persistent bacteremia Time Spent in Patient Care: Greater than 35 minutes Coding Level of Care Code Acute Stunt Man for [facility] Diagnoses Septicemia A41.9 Staphylococcus aureus bacteremia R78.81; B95.61 ANTONIO (acute kidney injury) N17.9 Thrombocytopenia D69.6 Atrial fibrillation I48.91
[2020-05-09] MEDS: sodium bicarbonate 650 mg Tablet PO (20:52)
--- NOTE | 2020-05-09 21:36 | PM.PN ---
Subjective Subjective: Interval history: Patient is doing well however is sleepy and drowsy. His heart rate is well controlled on oral metoprolol. Blood cultures will be repeated today. Vitals/I&O/Wt Last Vital Signs Temp 97.6 F 05/09/20 19:38 Pulse 81 05/09/20 19:38 Resp 18 05/09/20 19:38 BP 134/80 05/09/20 19:38 Pulse Ox 100 05/09/20 19:38 05/09/20 05/09/20 05/09/20 06:59 14:59 22:59 Intake Total 1200 / 2550 Output Total 100 / 170 100 / 100 Balance 1100 / 2380 -100 / -100 Weight last 48 hrs Weight 459 lb 4.8 oz Weight 442 lb 1 oz Physical Exam Narrative: EXAM NARRATIVE: EXAM NARRATIVE: Const COMMON NORMALS: no acute distress, patient oriented x3 and alert NUTRITIONAL APPEARANCE: obese ORIENTATION/CONSCIOUSNESS: Yes awake OTHER: HENMT COMMON NORMALS: oropharynx normal Neck/C-Spine COMMON NORMALS: no JVD Resp COMMON NORMALS: normal respiratory effort and clear to auscultation bilaterally AUSCULTATION: clear to auscultation bilaterally and crackles (Minimal) Cardio COMMON NORMALS: no JVD, irregularly irregular, S1 normal heart sound present, S2 normal heart sound present and No murmurs present (Cardio) RHYTHM: abnormal rhythm irregularly irregular HEART SOUNDS: S1 normal heart sound present and S2 normal heart sound present GI COMMON NORMALS: Normal to inspection, nondistended, normoactive bowel sounds present, Soft to palpation and non-tender PALPATION: Yes Soft to palpation Extremity COMMON NORMALS: no joint enlargement and significant pedal edema is noted Neuro COMMON NORMALS: patient oriented x3 and moves all extremities SENSORIUM/ORIENTATION: Yes alert Skin COMMON NORMALS: no rashes or lesions noted GENERAL SKIN EXAM: no rashes or lesions noted and dry skin Urinary Catheter Management^: Lynn: Cath Placed During This Visit: yes Reason for Continuing Indwelling Catheter: Acute Urinary Retention or Obstruction Urinary Catheter Date of Insertion: 05/05/20 Urinary Catheter Time of Insertion: 11:55 Data : 05/12/20 03:40 05/12/20 03:40 Micro: Microbiology 05/09/20 18:20 Blood Culture - Preliminary Blood SPECIMEN COLLECTED 05/09/20 18:30 Blood Culture - Preliminary Blood SPECIMEN COLLECTED A&P Assessment and plan (1) Staphylococcus aureus bacteremia: Status: Acute (2) Sepsis: Status: Deleted Qualifiers: Sepsis type: sepsis due to unspecified organism Sepsis acute organ dysfunction status: with acute organ dysfunction Severe sepsis acute organ dysfunction type: unspecified Severe sepsis shock status: without septic shock Qualified Code(s): A41.9 - Sepsis, unspecified organism; R65.20 - Severe sepsis without septic shock (3) ANTONIO (acute kidney injury): Status: Acute (4) Diarrhea: Status: Resolved (5) Thrombocytopenia: Status: Acute (6) Atrial fibrillation: Status: Acute (7) Cardiomyopathy: Status: Chronic Qualifiers: Cardiomyopathy type: unspecified Qualified Code(s): I42.9 - Cardiomyopathy, unspecified Patient has staph bacteremia now. Heart rate is better controlled now.Continue PO Metoprolol 50mg TID In case he becomes hypotensive with uncontrolled heart rates, amio drip can be started. Given his staph bacteremia, ECHO was performed that did not show vegetations but was a limited quality echocardiogram. ID consult pending. Will perform SARAHY once platelet count improves. Thank you for involving us with care of this patient. We will continue to follow. Attestations Medical Necessity Statement*: Care expected to cross 2 midnights Coding Level of Care Code Acute Record Tester for [facility] Diagnoses Staphylococcus aureus bacteremia R78.81; B95.61 Sepsis A41.9; R65.20 Sepsis type: sepsis due to unspecified organism Sepsis acute organ dysfunction status: with acute organ dysfunction Severe sepsis acute organ dysfunction type: unspecified Severe sepsis shock status: without septic shock ANTONIO (acute kidney injury) N17.9 Diarrhea R19.7 Thrombocytopenia D69.6 Atrial fibrillation I48.91 Cardiomyopathy I42.9 Cardiomyopathy type: unspecified
--- NOTE | 2020-05-09 22:27 | PM.PN ---
Subjective Subjective: Interval history: Patient is tired today. Has been moved to medical floor. Bariatric bed obtained. He is more comfortable in this. Difficulty with lab draws today. Would benefit from PICC line placement as he will likely need extended course of antibiotics given persistent bacteremia. No one is available to do a PICC line from what I can gather until next week. We do have some peripheral access. Consideration may have to be given to central line placement in the interim. Vitals/I&O/Wt Last Vital Signs Temp 97.6 F 05/09/20 19:38 Pulse 81 05/09/20 19:38 Resp 18 05/09/20 19:38 BP 134/80 05/09/20 19:38 Pulse Ox 100 05/09/20 19:38 05/09/20 05/09/20 05/09/20 06:59 14:59 22:59 Intake Total 1200 / 2550 Output Total 100 / 170 100 / 100 Balance 1100 / 2380 -100 / -100 Weight last 48 hrs Weight 208.335 kg Weight 200.516 kg Physical Exam Const: OTHER: More lethargic during my evaluation today but had been awake and interactive earlier per nursing and therapy HENMT: OTHER: Dry mucous membranes, mouth breather Neck/C-Spine: OTHER: Remains supple Resp: OTHER: Upper airway noise currently but otherwise unremarkable anteriorly Cardio: OTHER: Regular rate and rhythm distant heart sounds GI: OTHER: Abdomen soft, nontender : OTHER: Lynn catheter Extremity: NARRATIVE EXTREMITY EXAM: Edema unchanged, most prominent in distal extremities Neuro: OTHER: No abnormal movements, awakens to answer simple questions Skin: OTHER: Stasis changes noted chronically, wounds to left posterior leg with Betadine paint Urinary Catheter Management^: Lynn: Cath Placed During This Visit: yes Reason for Continuing Indwelling Catheter: Acute Urinary Retention or Obstruction Urinary Catheter Date of Insertion: 05/05/20 Urinary Catheter Time of Insertion: 11:55 Data : 05/09/20 15:52 05/09/20 14:51 Micro: Microbiology 05/09/20 18:20 Blood Culture - Preliminary Blood SPECIMEN COLLECTED 05/09/20 18:30 Blood Culture - Preliminary Blood SPECIMEN COLLECTED A&P Assessment and plan (1) Sepsis: Secondary to staph aureus bacteremia which is persisting although he is overall improved Status: Acute Qualifiers: Sepsis type: sepsis due to unspecified organism Sepsis acute organ dysfunction status: with acute organ dysfunction Severe sepsis acute organ dysfunction type: unspecified Severe sepsis shock status: without septic shock Qualified Code(s): A41.9 - Sepsis, unspecified organism; R65.20 - Severe sepsis without septic shock (2) Staphylococcus aureus bacteremia: No clear foci of infection has been identified. Possible sources include skin but there is no area that is definitely acutely infected presently. He has a pacemaker in place but no fluid collection was noted around this. Bacterial pneumonia status post recent Covid pneumonia is a consideration but he does not clinically come across that way. Urine culture collected earlier in hospital stay has now come back with only 20 - 30,000 CFU's of staph but could have been partially treated. Blood cultures past this day continue to be positive. Echo transthoracic did not show any obvious vegetations but was suboptimal. Tentatively planning for SARAHY once platelet count is closer to 50. Discussed with Dr. Snede Status: Acute (3) Thrombocytopenia: Trending upward, no active bleeding though has ecchymoses, off anticoagulation Status: Acute (4) Acute upper GI bleed: Has had some drop in hemoglobin from admission but no gross bleeding Status: Acute (5) Paroxysmal atrial fibrillation with RVR: Cardiology following, can be difficult to control, recommendation is for amiodarone drip if he has significant hypotension, chronically on Xarelto at home though this is held presently Status: Chronic (6) Diarrhea: Currently resolved, felt secondary to melena and upper GI bleed, stool for C. difficile was negative Status: Resolved (7) Venous insufficiency: Chronic bilateral lower extremity venous insufficiency with swelling, chronic ulceration. Status: Chronic (8) Sleep apnea: Nightly CPAP Status: Chronic (9) Pneumonia due to COVID-19 virus: Recently hospitalized. With mild residual hypoxia around 3 L of oxygen by nasal cannula. Status: Acute (10) ANTONIO (acute kidney injury): Nephrology following, remains oliguric. Had received contrast and clinically appeared dry. Was also on several medications such as Entresto and diuretics at home that could contribute. Status: Acute (11) Morbid obesity with BMI of 60.0-69.9, adult: Status: Chronic (12) Cardiomyopathy: Looks to chronically be on Entresto which is presently held in setting of acute kidney injury Status: Chronic Additional A&P Information Hypertension Hyperlipidemia Deconditioning Metabolic acidosis related to worsening renal function Cardiology will consider SARAHY when platelet count is greater than [address] Ware following along and assisting in care Continue linezolid Repeat blood cultures were drawn 05/[address] Ferreira for infectious disease consultation Dr. Mcdonald following from nephrology standpoint and recommending diuresis and bicarbonate today Remains off of home Lasix and Entresto Monitor closely for need for dialysis Continue Lynn catheter for close monitoring of urine output Patient is agreeable to consideration of long-term acute care placement and information has been sent With his comorbid baseline conditions as well as acute comorbidities I think he would be an excellent candidate. He is severely deconditioned, has had significant coagulopathy, acute renal failure, has persistent bacteremia which will require IV antibiotics and further exploration for potential source For now we will continue Betadine paint to dry wounds in the left lower extremity posteriorly Continue to hold anticoagulation secondary to thrombocytopenia Monitor for signs of bleeding and/or thrombosis BiPAP at night Oxygen therapy as needed Continue physical therapy Would benefit from PICC line placement, not unavailable until next week Consider central line placement if needed in interim Supportive care otherwise SCDs for DVT prophylaxis Currently on PPI Full code Attestations Medical Necessity Statement*: Requires ongoing inpatient care for management of multiple medical issues as described above. Requiring close monitoring of renal function, continuation of IV antibiotics, wound care and monitoring of cardiac status. 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 [facility] Diagnoses Sepsis A41.9; R65.20 Sepsis type: sepsis due to unspecified organism Sepsis acute organ dysfunction status: with acute organ dysfunction Severe sepsis acute organ dysfunction type: unspecified Severe sepsis shock status: without septic shock Staphylococcus aureus bacteremia R78.81; B95.61 Thrombocytopenia D69.6 Acute upper GI bleed K92.2 Paroxysmal atrial fibrillation with RVR I48.0 Diarrhea R19.7 Venous insufficiency I87.2 Sleep apnea G47.30 Pneumonia due to COVID-19 virus U07.1; J12.89 ANTONIO (acute kidney injury) N17.9 Morbid obesity with BMI of 60.0-69.9, adult E66.01; Z68.44 Cardiomyopathy I42.9
[2020-05-10] VITALS (19 sets, daily range): BP systolic 91–155; BP diastolic 64–83; PULSE 72–105; RESP 13–20; TEMP 35.7–36.6; O2SAT 91–98
[2020-05-10] MEDS: linezolid premix 600 MG/300 ML PREMIX 300 MG IV ×2 (01:46→12:35)
[2020-05-10 05:55] LABS: Basophils % 0.1 %; Eosinophils # 0.1 10^3/uL (0.0-0.8); Eosinophils % 1.5 %; Hematocrit 30.3 % (42.0-52.0); Hemoglobin 9.4 g/dL (11.7-16.6); Lymphocytes # 0.7 10^3/uL (0.8-4.8); Mean Corpuscular Hemoglobin 31.3 pg (28.0-34.0); Mean Platelet Volume 12.7 fL (7.4-10.4); Monocytes # 0.5 10^3/uL (0.2-0.9); Monocytes % 7.7 %; Neutrophils # 5.28 10^3/uL (1.8-7.7); Neutrophils % 77.8 %; Nucleated Red Blood Cells % 0 %; Platelet Count 36 10^3/cmm (130-400); Red Cell Distribution Width 15.9 % (12.1-15.1); White Blood Count 6.8 10^3/uL (4.0-10.0)
[2020-05-10 06:21] LABS: Calcium 7.5 mg/dL (8.5-10.5); Carbon Dioxide 17 mmol/L (22-29); Chloride 99 mmol/L (98-107); Glomerular Filtration Rate 14.5 mL/min (90-130); Glucose 97 mg/dL (65-115); Magnesium 2.4 mg/dL (1.7-2.3); Osmolality Calculated 294 mOsm/kg (285-295); Sodium 128 mmol/L (136-145)
[2020-05-10 06:43] LABS: Blood Urea Nitrogen 90 mg/dL (8-23); Phosphorus 8.1 mg/dL (2.5-4.5)
[2020-05-10 07:17] LABS: Erythrocyte Sedimentation Rate 68 mm/hr (0-10)
[2020-05-10] MEDS: sodium bicarbonate 650 mg Tablet PO ×2 (08:03→14:38)
[2020-05-10] MEDS: pantoprazole 40 mg SDV IVP ×2 (08:03→22:23)
[2020-05-10] MEDS: metoprolol tartrate 50 mg Tablet PO ×3 (08:03→22:23)
--- NOTE | 2020-05-10 09:51 | PC.SOCIAL ---
IMM Update Pg. 2 of IMM updated and copy provided to patient.
--- NOTE | 2020-05-10 12:28 | PM.PN ---
Subjective Subjective: Interval history: Patient not feeling great. Tolerating full liquid diet but still not much of an appetite. BUN and creatinine continue to go up. He is having some itching and intermittent myoclonic jerks. No bleeding. No change in respiratory status. Patient was seen by Dr. Ferreira, infectious disease yesterday. Sensitivities have come back showing oxacillin sensitive staph aureus. Recommended transition to cefazolin pending review of sensitivities. She does recommend SARAHY source of infection is not clear and concern is possibility of the ICD being seated. Recommends holding off on PICC line placement until he has been free of bacteremia. IV access is still an issue but blood draw was able to be done today more easily. Vitals/I&O/Wt Last Vital Signs Temp 96.2 F L 05/10/20 11:38 Pulse 80 05/10/20 11:38 Resp 17 05/10/20 11:38 BP 140/72 05/10/20 11:38 Pulse Ox 93 05/10/20 11:38 05/09/20 05/10/20 05/10/20 22:59 06:59 14:59 Output Total 100 / 100 175 / 275 Balance -100 / 200 -175 / 25 Weight last 48 hrs Weight 208.335 kg Physical Exam Const: OTHER: Remains lethargic but awakens more easily this morning HENMT: OTHER: Dry mucous membranes, dry tongue with some whitish covering Eye: OTHER: Extraocular movements intact, no nystagmus, pupils equally reactive, mild conjunctival injection Neck/C-Spine: OTHER: Supple but large Resp: OTHER: Scattered wheezes noted anteriorly today. Improves a little bit with cough. No retractions, oxygen remains in place Cardio: OTHER: Regular rate and rhythm, heart sounds remain distant GI: OTHER: Abdomen soft, mild tenderness, decreased bowel sounds, no masses : OTHER: Lynn catheter remains with dark yellow/orange-brown urine output Extremity: NARRATIVE EXTREMITY EXAM: Edema unchanged, most prominent in distal extremities Neuro: OTHER: No abnormal movements, awakens to answer simple questions Psych: OTHER: Not as conversant as he was a couple of days ago Skin: OTHER: No significant change to skin findings and wounds on lower extremities Urinary Catheter Management^: Lynn: Cath Placed During This Visit: yes Reason for Continuing Indwelling Catheter: Acute Urinary Retention or Obstruction Urinary Catheter Date of Insertion: 05/05/20 Urinary Catheter Time of Insertion: 11:55 Data : 05/10/20 04:54 05/10/20 04:54 Micro: Microbiology 05/06/20 16:45 Blood Culture - Preliminary Blood Staphylococcus aureus 05/06/20 11:45 Blood Culture - Preliminary Blood Staphylococcus aureus 05/09/20 18:20 Blood Culture - Preliminary Blood SPECIMEN COLLECTED 05/09/20 18:30 Blood Culture - Preliminary Blood SPECIMEN COLLECTED A&P Assessment and plan (1) Staphylococcus aureus bacteremia: Oxacillin sensitive. Repeat blood cultures collected yesterday remain no growth to date, cultures prior to that all with staph. Source has not been clearly identified. Appreciate infectious disease input. Consideration will be given to white cell tag scan. Needs a SARAHY when able to be done from a platelet standpoint. Concern is whether or not the ICD might be a source or seeded from persistent bacteremia. Status: Acute (2) ANTONIO (acute kidney injury): Today worsening renal function daily. Suspect combination of ATN and contrast-induced nephropathy. Cannot rule out an embolic process either given recent Covid infection and significant thrombocytopenia. Has progressively worsening metabolic acidosis, azotemia, hyperphosphatemia but potassium thus far stable Status: Acute (3) Thrombocytopenia: [place] related to bone marrow suppression from sepsis or even potentially recent Covid infection. Platelets have been normal at last hospital stay when he was discharged on April 25. He was discharged on anticoagulation with Xarelto. PT and PTT were elevated a bit as well as fibrinogen. Both normalized quickly. LDH was a bit elevated but similar to previous. No schistocytes reported. Comparatively white count and hemoglobin were okay. Did not have other findings suggestive of DIC or TTP. Had not been on heparin that I could discern. Had associated hematemesis at presentation but with cessation of oral anticoagulation that has not recurred. Platelets are very slowly trending upward. No schistocytes reported Status: Acute (4) Sepsis: Had leukocytosis, tachycardia, soft blood pressures, multiple positive blood culture bottles Status: Acute Qualifiers: Sepsis type: sepsis due to unspecified organism Sepsis acute organ dysfunction status: with acute organ dysfunction Severe sepsis acute organ dysfunction type: unspecified Severe sepsis shock status: without septic shock Qualified Code(s): A41.9 - Sepsis, unspecified organism; R65.20 - Severe sepsis without septic shock (5) Paroxysmal atrial fibrillation with RVR: Difficult to control at times, responds to beta-blockade generally speaking, required esmolol drip transiently, was on amiodarone outpatient Status: Chronic (6) Pneumonia due to COVID-19 virus: Early April 2020 Status: Acute (7) Cardiomyopathy: Ejection fraction around 20-25%, chronically on diuretics and Entresto, has ICD Status: Acute Qualifiers: Cardiomyopathy type: unspecified Qualified Code(s): I42.9 - Cardiomyopathy, unspecified (8) S/P ICD (internal cardiac defibrillator) procedure: Due to cardiomyopathy, concern it could be a source of MSSA infection versus impacted by it Status: Chronic (9) Venous insufficiency: With chronic lower extremity stasis wounds Status: Chronic (10) Acute upper GI bleed: Earlier in course of hospital stay, received a pheresis unit of platelets, no recurrence thus far Status: Resolved (11) Diarrhea: Was felt secondary to GI bleeding, resolved Status: Resolved (12) Sleep apnea: Nightly CPAP/BiPAP when he is agreeable Status: Chronic (13) Morbid obesity with BMI of 60.0-69.9, adult: Status: Chronic Additional A&P Information Hypertension history, has not been issue during this hospitalization Deconditioning from multiple medical issues this past month in the setting of comorbid conditions Continue close monitoring of renal function and urine output Nephrology following closely Heading closer to possibility of needing dialysis Avoiding nephrotoxic medications/renally dosing others Maintain Lynn catheter for close monitoring given worsening renal failure Appreciate infectious disease input Cefazolin was added and linezolid I believe may be discontinued depending on sensitivities to cefazolin Another set of repeat blood cultures has been ordered, follow-up pending ones from the May consider white cell tag scan Needs SARAHY when platelets are better Appreciate cardiology's assistance in care BiPAP/CPAP at night when he will agree Oxygen therapy and incentive spirometer Monitor closely for any mental status or other changes today PT following for increasing activity as able Monitor response to diet advance to full liquids Need to consider supplemental nutrition if he is not taking in much in the way of oral intake Recommendation is to hold off on PICC line until he has been bacteremia free for 72 hours Will likely need to consider central line placement soon, if ends up needing dialysis catheter placed would address at the same time Continue Betadine paint to lower extremities presently as per wound care recommendations Remains off of home oral Lasix and Entresto Home rivaroxaban remains held due to thrombocytopenia Bariatric bed in chair in use On PPI for GI prophylaxis given GI bleed, there potential to impact platelet count but with GI findings and limitations on availability of similar IV products impact treatment options Oral care Supportive care otherwise SCDs for DVT prophylaxis Currently on PPI Full code Have spoken to both patient and about long-term acute care. They were both agreeable given the degree of deconditioning he has had over the last month between Covid infection and current infection. In addition to this he has persistent acute kidney injury and I am suspecting he will end up needing dialysis. He has persistent bacteremia thus far coinciding. He still needs a SARAHY and possibly further evaluation from an infectious disease standpoint. Consideration has to be given to whether or not to remove the ICD. With his comorbidities including BMI greater than 60, cardiomyopathy with EF around 25%, chronic venous insufficiency and peripheral vascular disease with chronic stasis wounds, sleep apnea among other diagnoses listed throughout his chart I do feel that his long-term outcomes may be best served by long-term acute care setting. Paperwork has been sent for consideration. 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 [facility] Diagnoses Staphylococcus aureus bacteremia R78.81; B95.61 ANTONIO (acute kidney injury) N17.9 Thrombocytopenia D69.6 Sepsis A41.9; R65.20 Sepsis type: sepsis due to unspecified organism Sepsis acute organ dysfunction status: with acute organ dysfunction Severe sepsis acute organ dysfunction type: unspecified Severe sepsis shock status: without septic shock Paroxysmal atrial fibrillation with RVR I48.0 Pneumonia due to COVID-19 virus U07.1; J12.89 Cardiomyopathy I42.9 Cardiomyopathy type: unspecified S/P ICD (internal cardiac defibrillator) procedure Z95.810 Venous insufficiency I87.2 Acute upper GI bleed K92.2 Diarrhea R19.7 Sleep apnea G47.30 Morbid obesity with BMI of 60.0-69.9, adult E66.01; Z68.44
[2020-05-10] MEDS: oxyCODONE 5 mg IR Tab/Cap PO (13:07)
--- NOTE | 2020-05-10 15:07 | PM.PN ---
Subjective Subjective: Interval history: Patient states he feeling better but feels still short of breath Medications: Reviewed: Yes Vitals/I&O/Wt Last Vital Signs Temp 97.3 F L 05/10/20 14:57 Pulse 80 05/10/20 14:57 Resp 18 05/10/20 14:57 BP 116/82 05/10/20 14:57 Pulse Ox 98 05/10/20 14:57 05/10/20 05/10/20 05/10/20 06:59 14:59 22:59 Intake Total 300 / 600 60 / 60 Output Total 175 / 275 Balance 125 / 325 60 / 60 Weight last 48 hrs Weight 459 lb 4.8 oz Physical Exam Narrative: EXAM NARRATIVE: GENERAL: Patient is alert, awake and oriented x3. NECK: No jugular vein distension. HEENT: No cyanosis. No icterus. No pallor. HEART: Regular S1 and S2. No murmur, rub or gallop. LUNGS: Decreased breath sounds with some wheezing bilaterally. ABDOMEN: Soft, nontender and nondistended. Positive bowel sounds. No guarding, rebound or tenderness. CENTRAL NERVOUS SYSTEM: Grossly nonfocal. EXTREMITIES: Lower extremities with 2+ edema bilaterally. Staining and excoriation of the legs Urinary Catheter Management^: Lynn: Cath Placed During This Visit: yes Reason for Continuing Indwelling Catheter: Acute Urinary Retention or Obstruction Urinary Catheter Date of Insertion: 05/05/20 Urinary Catheter Time of Insertion: 11:55 Data : 05/12/20 03:40 05/12/20 03:40 Micro: Microbiology 05/06/20 16:45 Blood Culture - Preliminary Blood Staphylococcus aureus 05/06/20 11:45 Blood Culture - Preliminary Blood Staphylococcus aureus 05/09/20 18:20 Blood Culture - Preliminary Blood SPECIMEN COLLECTED 05/09/20 18:30 Blood Culture - Preliminary Blood SPECIMEN COLLECTED A&P Assessment and plan (1) Staphylococcus aureus bacteremia: Status: Acute (2) Sepsis: Status: Deleted Qualifiers: Sepsis acute organ dysfunction status: with acute organ dysfunction Sepsis type: sepsis due to unspecified organism Severe sepsis acute organ dysfunction type: unspecified Severe sepsis shock status: without septic shock Qualified Code(s): A41.9 - Sepsis, unspecified organism; R65.20 - Severe sepsis without septic shock (3) ANTONIO (acute kidney injury): Status: Acute (4) Diarrhea: Status: Resolved (5) Thrombocytopenia: Status: Acute (6) Atrial fibrillation: Status: Acute (7) Cardiomyopathy: Status: Chronic Patient has staph bacteremia now. Heart rate is better controlled now.Continue PO Metoprolol 50mg TID In case he becomes hypotensive with uncontrolled heart rates, amio drip can be started. Given his staph bacteremia, ECHO was performed that did not show vegetations but was a limited quality echocardiogram. Can get opinion from ID regarding need for removal of ICD in case focus of infection is not found and with staph bacteremia. Will set up SARAHY to rule out vegetations but have not been able to perform it because of thrombocytopenia. Thank you for involving us with care of this patient. We will continue to follow. 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
--- NOTE | 2020-05-10 15:25 | P.PN_ITS ---
Subjective Subjective: Interval history: I am seeing him in follow up for his renal failure. Still has SOB, no nausea or vomiting Medications: Reviewed: Yes Vitals/I&O/Wt Last Vital Signs Temp 97.3 F L 05/10/20 14:57 Pulse 80 05/10/20 14:57 Resp 18 05/10/20 14:57 BP 116/82 05/10/20 14:57 Pulse Ox 98 05/10/20 14:57 05/10/20 05/10/20 05/10/20 06:59 14:59 22:59 Intake Total 300 / 600 60 / 60 Output Total 175 / 275 Balance 125 / 325 60 / 60 Weight last 48 hrs Weight 208.335 kg Physical Exam Const: COMMON NORMALS: no acute distress, patient oriented x3 and alert GENERAL APPEARANCE: cooperative Resp: AUSCULTATION: crackles Cardio: COMMON NORMALS: S1 normal heart sound present and S2 normal heart sound present HEART SOUNDS: S1 normal heart sound present and S2 normal heart sound present GI: AUSCULTATION: Yes normoactive bowel sounds Extremity: GENERAL: Yes edema Neuro: COMMON NORMALS: patient oriented x3 SENSORIUM/ORIENTATION: Yes alert Skin: COMMON NORMALS: no rashes or lesions noted GENERAL SKIN EXAM: no rashes or lesions noted Urinary Catheter Management^: Lynn: Cath Placed During This Visit: yes Reason for Continuing Indwelling Catheter: Acute Urinary Retention or Obstruction Urinary Catheter Date of Insertion: 05/05/20 Urinary Catheter Time of Insertion: 11:55 Data : 05/10/20 04:54 05/10/20 04:54 Micro: Microbiology 05/06/20 16:45 Blood Culture - Preliminary Blood Staphylococcus aureus 05/06/20 11:45 Blood Culture - Preliminary Blood Staphylococcus aureus 05/09/20 18:20 Blood Culture - Preliminary Blood SPECIMEN COLLECTED 05/09/20 18:30 Blood Culture - Preliminary Blood SPECIMEN COLLECTED A&P Additional A&P Information 1. ANTONIO : Kidney function is still worse. No indication for dialysis yet. Monitor BUN and urine output closely. Avoid new nephrotoxins 2. Acidosis: Recommend adding sodium bicarbonate supplements 3. Anemia : Follow hb 4. Hyponatremia : Will monitor sodium levels closley 5. COVID pneumonia/sepsis : Dose antibiotics based on creatinine clearance Attestations Medical Necessity Statement*: renal failure Coding Level of Care Code Acute Dry Starch Supervisor for Chg Fwd Exam Detailed
[2020-05-10 15:33] LABS: ABG PCO2 42.1 mmHg (35-45); Arterial Blood Gas Hematocrit 29.2 % (42-52); Base Excess ABG -10.9 mmol/L (-2.0-2.0); Blood Gas Allen Test Pos; Blood Gas Operator Identificat GD; Blood Gas Sample Site Radial, right; Blood Gas Sample Type Arterial; HCO3 ABG 16.5 mmol/L (22-26); Oxygen Device NC
[2020-05-10] MEDS: FUROsemide 10 mg/mL SDV 4mL 40 MG IVP (15:51)
--- NOTE | 2020-05-10 18:35 | PC.NURSE ---
ICU transfer Pt was transferred to ICU by [facility] staff at [address] Ratliff at bedside. Upon admission patient was alert and orientated x 4 but has episodes of confusion and talking to self. Vital signs as follows pulse- 80, BP- 140/77, o2- 96, RR-16. Exploratory wheezes were noted and bowel sounds active. Patient is having episodes of twitching and jerking movements. Patient was transferred in anticipation for dialysis. Will continue to monitor closely.
--- NOTE | 2020-05-10 20:30 | PM.PN ---
Subjective Subjective: Interval history: Infectious disease follow up : Moved to ICu this evening due to changes in mentation . Currently alert, awake, answering questions however noted to be more lethargic than previous exam. Denies dyspnea but visibly noted to be tacypneic. Medications: Reviewed: Yes Vitals/I&O/Wt Last Vital Signs Temp 97.8 F 05/11/20 04:44 Pulse 81 05/11/20 06:05 Resp 16 05/11/20 06:00 BP 136/69 05/11/20 06:00 Pulse Ox 93 05/11/20 06:00 05/10/20 05/10/20 05/11/20 14:59 22:59 06:59 Intake Total 60 / 60 60 / 120 701.25 / 821.25 Output Total 168 / 168 80 / 248 Balance -108 / -48 621.25 / 573.25 Weight last 48 hrs Weight 210.3 kg Physical Exam Narrative: EXAM NARRATIVE: GEN: Awake, alert and oriented,more lethargic than previous exam, tachypneic wile attempting conversation CVS: S1S2 N RS: crackles to auscultation anteriorly Abd: Soft, nt/nd , bs+ DISPENSING OPTICIAN: no focal neuro deficits , though does not move LE , more likely related to deconditioing. Urinary Catheter Management^: Lynn: Cath Placed During This Visit: yes Reason for Continuing Indwelling Catheter: Accurate Measurement of Urinary Output in Critically Ill Patients Urinary Catheter Date of Insertion: 05/05/20 Urinary Catheter Time of Insertion: 11:55 Data : 05/11/20 04:15 05/11/20 04:15 Micro: Microbiology 05/11/20 04:32 Blood Culture - Preliminary Blood SPECIMEN COLLECTED 05/11/20 04:15 Blood Culture - Preliminary Blood SPECIMEN COLLECTED 05/09/20 18:20 Blood Culture - Preliminary Blood NEGATIVE TO DATE 05/09/20 18:30 Blood Culture - Preliminary Blood NEGATIVE TO DATE 05/06/20 16:45 Blood Culture - Preliminary Blood Staphylococcus aureus 05/06/20 11:45 Blood Culture - Preliminary Blood Staphylococcus aureus A&P Assessment and plan (1) Septicemia: Persistent MSSA bacteremia 05/03, 05/05, 05/06, intermittent cx N/A due to difficulty with blood draws , from 05/09 thus far NGTD On cefepime 1g iv q24h 05/05-05/08 and linezolid since 05/05- cx and suscetibility updated from cx to reflect MSSA Started cefazolin 2g iv q8h (cr cl ~35 using IBW) 05/10 discontinue linezolid given all isolates identified as MSSA source of bacteremia not entirely clear, CT thoracolumbar spine negative for discitis/epidural abscess, SSTI possible but wounds appear to be at baseline , no gross cellulitis, urine not the likely source with normal anatomy and no indwelling hardware, more likely that + urine cx represents high grade bacteremia. Patient denies any PICC lines, thrombophlebitis etc. Unlikely that pneumonia is the cause as CT findings do not apperar impressive enough to explain persistent bacteremia. Check CXR given worsened tachypnea, though this may be related to fluid overload and developing metabolic acidosis. Cannot exclude endocarditis vs ICD infection, recommend SARAHY when feasible per cardiology. Since thrombocytopenia persisting and SARAHY expected to be delayed, will order WBC tagged study, however may be limited due to morbid obesity. continue to obtain daily blood cx until negative x 3 days hold off on PICC line until blood cx negative for at least 72 hrs Okay to get CVC and temporary HD catheter if needed Status: Acute (2) Staphylococcus aureus bacteremia: As above Status: Acute (3) ANTONIO (acute kidney injury): Renal recommendations noted May be contrast related vs GN from MSSA septicemia Unlikely AIN from b lactams given that low platelets present on admission Status: Acute (4) Thrombocytopenia: May be related to sepsis w/up per primary team Status: Acute (5) Atrial fibrillation: management per cardiology Status: Acute Attestations Medical Necessity Statement*: MSSA septicemia, iv abx, ongoing evaluation for AICD lead infection,ANTONIO Coding Level of Care Code Acute Tent Finisher for [facility] Diagnoses Septicemia A41.9 Staphylococcus aureus bacteremia R78.81; B95.61 ANTONIO (acute kidney injury) N17.9 Thrombocytopenia D69.6 Atrial fibrillation I48.91
[2020-05-10 21:10] LABS: Alanine Aminotransferase 18 U/L (0-41); Albumin Level 2.2 g/dL (3.5-5.2); Alkaline Phosphatase 80 IU/L (40-130); Anion Gap 16.3 (5-19); Aspartate Amino Transferase 16 U/L (0-40); Calcium 7.8 mg/dL (8.5-10.5); Carbon Dioxide 18 mmol/L (22-29); Chloride 98 mmol/L (98-107); Globulin 3.7 g/dL (1.3-4.6); Glomerular Filtration Rate 15.8 mL/min (90-130); Glucose 126 mg/dL (65-115); Magnesium 2.5 mg/dL (1.7-2.3); Osmolality Calculated 297 mOsm/kg (285-295); Potassium 5.3 mmol/L (3.5-5.1); Sodium 127 mmol/L (136-145); Total Bilirubin 0.6 mg/dL (0.15-1.2); Total Protein 5.9 g/dL (6.6-8.7)
[2020-05-10 21:16] LABS: Blood Urea Nitrogen 101 mg/dL (8-23); Phosphorus 8.5 mg/dL (2.5-4.5)
--- NOTE | 2020-05-10 21:20 | PC.NURSE ---
Critical labs: This RN received notification of critical results from Lab on BUN and Phos. MD Jhon was at bedside with primary RN performing ultrasound at the time call was received. verbally updated on labs. No further orders received at this time.
[2020-05-11] VITALS (41 sets, daily range): BP systolic 79–145; BP diastolic 54–85; PULSE 69–95; RESP 14–24; TEMP 35.9–36.6; O2SAT 93–100
--- NOTE | 2020-05-11 | SCC_ITS ---
Procedure Done: Right IJ hemodialysis catheter placement 23.5 seconds of fluoroscopic guidance, for a cumulative dose of 10.02 mGy, was provided to Dr. Renteria by the radiology department. C-arm images of the chest were saved for the patient's permanent record. [facility]
[2020-05-11] MEDS: FUROsemide 10 mg/mL SDV 4mL 40 MG IVP ×2 (02:49→15:43)
[2020-05-11 05:14] LABS: Basophils % 0.3 %; Eosinophils # 0.1 10^3/uL (0.0-0.8); Eosinophils % 1.5 %; Hematocrit 29.4 % (42.0-52.0); Hemoglobin 9.2 g/dL (11.7-16.6); Lymphocytes # 0.6 10^3/uL (0.8-4.8); Lymphocytes % 9.3 %; Mean Corpuscular HGB Conc 31.3 g/dL (30.0-36.0); Mean Corpuscular Hemoglobin 31.2 pg (28.0-34.0); Mean Corpuscular Volume 99.7 fL (80-94); Mean Platelet Volume 11.8 fL (7.4-10.4); Monocytes # 0.5 10^3/uL (0.2-0.9); Monocytes % 7.4 %; Neutrophils # 4.72 10^3/uL (1.8-7.7); Neutrophils % 77.1 %; Nucleated Red Blood Cells % 0 %; Platelet Count 41 10^3/cmm (130-400); Red Blood Count 2.95 10^6/uL (4.1-5.3); Red Cell Distribution Width 15.6 % (12.1-15.1); White Blood Count 6.1 10^3/uL (4.0-10.0)
[2020-05-11 05:25] LABS: Partial Thromboplastin Time 29.2 SECONDS (23.9-36.7)
[2020-05-11 05:33] LABS: Alanine Aminotransferase 15 U/L (0-41); Albumin Level 2.2 g/dL (3.5-5.2); Alkaline Phosphatase 88 IU/L (40-130); Anion Gap 16.9 (5-19); Aspartate Amino Transferase 16 U/L (0-40); Calcium 7.5 mg/dL (8.5-10.5); Carbon Dioxide 17 mmol/L (22-29); Chloride 99 mmol/L (98-107); Globulin 3.7 g/dL (1.3-4.6); Glomerular Filtration Rate 15.4 mL/min (90-130); Glucose 108 mg/dL (65-115); Magnesium 2.5 mg/dL (1.7-2.3); Osmolality Calculated 299 mOsm/kg (285-295); Potassium 4.9 mmol/L (3.5-5.1); Sodium 128 mmol/L (136-145); Total Bilirubin 0.6 mg/dL (0.15-1.2); Total Protein 5.9 g/dL (6.6-8.7)
[2020-05-11 05:36] LABS: Fibrinogen 479 mg/dL (174-498)
[2020-05-11 05:56] LABS: Blood Urea Nitrogen 103 mg/dL (8-23)
--- NOTE | 2020-05-11 06:42 | P.CONIM_ITS ---
Providers/Reason For Consult Consulting Physican/Specialty*: Martín Renteria MD Reason for Consult*: Hemodialysis access catheter Attending Physician: Miriam Ratliff MD Primary Care Provider: Nirav Parra DO History of Present Illness History of Present Illness Chief Complaint: Tired History of present illness: Mr Víctor Miles is a pleasant 59 year old morbidly obese with a current BMI of 68.5 male patient with multiple medical comorbidities in the form of cardiomyopathy, thrombocytopenia, atrial fibrillation, previous history of pneumonia due to COVID-19 virus. History of sleep apnea and venous insufficiency, dyslipidemia, history of cardiac radiofrequency ablation, and status post internal cardiac defibrillator procedure. Initial history of melanotic stool with associated thrombocytopenia but no evidence of hematemesis and patient was found to have staphylococcal bacteremia without obvious source yet there was a concern about the left upper chest pacemaker related bacteremia, cardiac services on board. Also patient is well- known with his chronic venous insufficiency as I used to do care of him at the wound care center. And currently have a dry black colored stable eschar located at the posterior aspect of the left calf region which has been painted by Nacho vidal twice a day per my recommendations as there is no evidence of pus or discharge or surrounding cellulitis. Over his clinical course kidney functions have been of concern in addition to his phosphorus level. General surgery was consulted for potential placement of hemodialysis catheter and central line placement. Patient was transferred to the ICU yesterday evening due to his clinical deterioration. Review of Systems General: Reports: 10 or more systems reviewed and unremarkable except in HPI and below Meds/Allergies Home Medications and Allergies Home Medications Medication Instructions Recorded Confirmed Last Taken Type aspirin 81 mg tablet,delayed 81 mg PO DAILY tab 09/29/19 05/03/20 05/02/20 History release nitroglycerin 0.4 mg sublingual 0.4 mg SUBLINGUAL Q5M PRN 09/29/19 05/03/20 Unknown History tablet rivaroxaban 20 mg tablet 20 mg PO DAILY tab 09/29/19 05/03/20 05/02/20 History sacubitril 49 mg-valsartan 51 mg 1 tab PO BID #60 tab 02/09/20 05/03/20 05/03/20 Rx tablet montelukast [Singulair] 10 mg PO DAILY PRN 04/20/20 05/03/20 05/03/20 History albuterol sulfate [Ventolin HFA] 2 puff INHALATION Q4H.RESPIRATORY 04/22/20 05/03/20 04/25/20 Rx PRN #8.5 gm furosemide 40 mg PO DAILY PRN #0 tab 04/22/20 05/03/20 04/24/20 Rx amiodarone 200 mg tablet 200 mg PO Q12H #60 tab 05/01/20 05/03/20 05/03/20 Rx metoprolol tartrate 100 mg tablet 100 mg PO TID #180 tab 05/01/20 05/03/20 05/03/20 Rx acetaminophen [Tylenol Extra 1,000 mg PO PRN 05/03/20 05/03/20 Unknown History Strength] dextromethorphan-guaifenesin 1 tab PO QID PRN 05/03/20 05/03/20 Unknown History [Chest Congestion Relief DM] Allergies Allergy/AdvReac Type Severity Reaction Status Date / Time No Known Allergies Allergy Verified 05/11/20 06:57 Current Medications Current Medications Generic Name Dose Route Start Last Admin Trade Name Freq PRN Reason Stop Dose Admin Furosemide 40 mg 05/10/20 15:30 05/11/20 02:49 Furosemide 10 Mg/Ml Sdv 4ml IVP 40 mg Q12H MARGARET Administration Cefazolin Sodium 2,000 mg/ 60 mls @ 100 mls/hr 05/10/20 07:00 05/11/20 06:10 Sodium Chloride IV 100 mls/hr Q8H MARGARET Administration Sodium Bicarbonate 150 meq/ 1,000 mls @ 75 mls/hr 05/10/20 18:55 05/11/20 03:53 Dextrose IV 75 mls/hr .[id number] MARGARET Administration Lanolin 1 applic 05/06/20 19:03 05/06/20 19:30 Lanolin Oint 7 Gm TOPICAL 1 tube PRN PRN Administration DRYNESS Metoprolol Tartrate 50 mg 05/07/20 09:08 05/10/20 22:23 Metoprolol Tartrate 50 Mg Tablet PO 50 mg TID MARGARET Administration Morphine Sulfate 2 mg 05/03/20 16:18 05/09/20 00:04 Morphine 4 Mg/Ml Sdv 1 Ml IVP 2 mg Q4H PRN Administration SEVERE PAIN Oxycodone HCl 5 mg 05/10/20 12:40 05/10/20 13:07 Oxycodone 5 Mg Ir Tab/Cap PO 5 mg Q4H PRN Administration MODERATE PAIN Pantoprazole Sodium 40 mg 05/04/20 09:00 05/10/20 22:23 Pantoprazole 40 Mg Sdv IVP 40 mg Q12H MARGARET Administration Sodium Bicarbonate 650 mg 05/09/20 21:00 05/10/20 14:38 Sodium Bicarbonate 650 Mg Tablet PO 650 mg TID MARGARET Administration PFSH Acute PFSH: Medical History Anticoagulation adequate with anticoagulant therapy Xarelto Atrial fibrillation Cardiomyopathy Ejection fraction around 20 to 25% CHF (congestive heart failure) Dyslipidemia History of colon polyps HTN (hypertension) Hypoxia Obesity MIMI on CPAP Sleep apnea Venous insufficiency Surgical History H/O hand surgery Left x2 --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 H/O local excision of skin lesion Right lower leg skin biopsy -- benign History of arthroscopic knee surgery Bilateral History of cardiac radiofrequency ablation History of left inguinal hernia repair History of orchiectomy, unilateral Left -- benign adenomatoid tumor S/P ICD (internal cardiac defibrillator) procedure Family History Other No significant family history Social History Smoking and tobacco status: former smoker Quit status (tobacco): has quit using tobacco Year quit tobacco: Around 2011 Former quit date comment: 100 to [id number] history prior to quitting Alcohol intake: current Alcohol intake frequency: holidays/special occasions only Household members: spouse Marital status: service: No Current occupational status: disabled Vitals/I&O/Wt Last Vital Signs Temp 97.8 F 05/11/20 04:44 Pulse 81 05/11/20 06:05 Resp 16 05/11/20 06:00 BP 136/69 05/11/20 06:00 Pulse Ox 93 05/11/20 06:00 05/10/20 05/10/20 05/11/20 14:59 22:59 06:59 Intake Total 60 / 60 60 / 120 701.25 / 821.25 Output Total 168 / 168 80 / 248 Balance 60 / 60 -108 / -48 621.25 / 573.25 Weight last 48 hrs Weight 463 lb 10.114 oz Physical Exam Narrative: EXAM NARRATIVE: Patient is conscious alert but goes into episodes of confusion BMI 68.5 Head and neck examination PERRLA no masses no cervical lymphadenopathy no jaundice Right-sided neck external jugular vein access Cardiac examination distant heart sounds Chest is clear bilateral,abscence of Rhonchi or wheezes,no surgical emphysema Left upper chest pacemaker in place without obvious skin infection Abdomen nontender nondistended soft no organomegaly guarding or rigidity/no signs of peritonitis Morbidly obese Bilateral lower extremity chronic venous insufficiency signs and stable eschar of the left lower extremity without evidence of infection. Urinary Catheter Management^: Lynn: Cath Placed During This Visit: yes Reason for Continuing Indwelling Catheter: Accurate Measurement of Urinary Output in Critically Ill Patients Urinary Catheter Date of Insertion: 05/05/20 Urinary Catheter Time of Insertion: 11:55 Data Micro: Micro: Microbiology 05/11/20 04:15 Blood Culture - Pr eliminary Blood SPECIMEN COLLEC RAN 05/09/20 18:20 Blood Culture - Pr eliminary Blood NEGATIVE TO MALIKA E 05/09/20 18:30 Blood Culture - Pr eliminary Blood NEGATIVE TO MALIKA E 05/06/20 16:45 Blood Culture - Pr eliminary Blood Staphylococcus aureus 05/06/20 11:45 Blood Culture - Pr eliminary Blood Staphylococcus aureus A&P Assessment and plan (1) ANTONIO (acute kidney injury): 0645 am After limited history taking physical examination and reviewing the chart and images and after further discussion with Dr. Ratliff that patient likely will require hemodialysis access and a central line placement at this point we are awaiting nephrology recommendations and further discussion with hospitalist service. The patient required placement of those lines I would prefer to do it in the OR for more controlled environment and implement the C arm. And ultrasound machine Due to the patient's confusion I will elect to obtain informed consent from patient's spouse, the discussion with the patient as he agreed on the plan did take place in the presence of his nursing staff Ms. Brown and Mr. Soto. 0800 am After further discussing the case with nephrology hospital services we will proceed with placement of temporary hemodialysis catheter and central line. I counseled the patient and his spouse for hemodialysis catheter and central line placement, indications, risks including pneumothorax and injury of major vascular structures, benefits,indications and alternatives were all discussed with the patient and his spouse, patient's spouse understands and is interested to proceed. Rationale was carefully and clearly discussed with the patient and his spouse.Appropriate informed consent have been reviewed and signed in the presence of his nursing staff Cam,the spouse agreed to proceed accordingly. Thank you for consulting general surgery to participate taking care Status: Acute Consult Attestations Medical Necessity Statement: Ongoing inpatient hospitalization for medical and surgical care in an ICU setting Time Spent in Patient Care: (>than 50% of time spent in counselling and/or direct pt care on unit) . Coding Level of Care Code Acute Rn Outpatient Surgery for Alexandra Day Diagnoses ANTONIO (acute kidney injury) N17.9
[2020-05-11 06:51] LABS: Lactate Dehydrogenase 287 U/L (135-225)
--- NOTE | 2020-05-11 08:22 | PC.NURSE ---
Patient Was experiencing pain in the mouth related to dry lips and tongue. Pt is NPO. Provided patient with oral swab.
--- NOTE | 2020-05-11 08:26 | P.ANESASSM_ITS ---
Pre-Anesthetic Assessment Pre-Anesthetic Assessment: Height/Weight: Height 1.75 m Weight 210.3 kg Temp Pulse Resp BP Pulse Ox 97.6 F 84 16 134/73 98 05/11/20 08:00 05/11/20 08:00 05/11/20 08:00 05/11/20 08:00 05/11/20 08:00 Preop Diagnosis: ANTONIO + sepsis Proposed Procedure: HD and central line placement + SARAHY Familial anesthetic complications: NOne Was Beta Paco taken within 24 hours: Yes Last intake: NPO > 8 hrs Exam: Pre-Anes Outpt Exam: alert, clear to auscultation bilaterally and regular rate & rhythm Airway: Cervical ROM: WNL MP: 4 Dentition: Partials and Other (dentures) Additional comments: Dried blood in mouth Pulmonary: Pulmonary: Sleep apnea Comments: hx COVID 19 pneumonia CV/HEM: CV/HEM: Afib ( w/ RVR on anticoagulation) and CHF Comments: EF 20% Cardiac pacemaker + ICD - concern for endocardititis Hx cardiac ablation Thrombocytopenia : Comments: ANTONIO Metabolic: Metabolic: Morbid obesity (super) Comments: sepsis - Staph bacteremia Anesthetic Plan: ASA status: 4E Anesthesia: General Other: Patient's body habitus leads to decreased diaphragmatic excursion in recumbent or trendelenburg positioning. Risk of > 500 ml blood loss (7ml/kg in children): No Meds/Allergies Current Medications: Current Medications Generic Name Dose Route Start Last Admin Trade Name Freq PRN Reason Stop Dose Admin Furosemide 40 mg 05/10/20 15:30 05/11/20 02:49 Furosemide 10 Mg /Ml Sdv 4ml IVP 40 mg Q12H MARGARET Administration Cefazolin Sodium 2 ,000 mg/ 60 mls @ 100 mls/ hr 05/10/20 07:00 05/11/20 06:10 Sodium Chloride IV 100 mls/hr Q8H MARGARET Administration Sodium Bicarbonate 150 meq/ 1,000 mls @ 75 ml s/hr 05/10/20 18:55 05/11/20 03:53 Dextrose IV 75 mls/hr .[id number] MARGARET Administration Lanolin 1 applic 05/06/20 19:03 05/06/20 19:30 Lanolin Oint 7 G m TOPICAL 1 tube PRN PRN Administration DRYNESS Metoprolol Tartrat e 50 mg 05/07/20 09:08 05/10/20 22:23 Metoprolol Tartr ate 50 Mg Tablet PO 50 mg TID MARGARET Administration Morphine Sulfate 2 mg 05/03/20 16:18 05/09/20 00:04 Morphine 4 Mg/Ml Sdv 1 Ml IVP 2 mg Q4H PRN Administration SEVERE PAIN Oxycodone HCl 5 mg 05/10/20 12:40 05/10/20 13:07 Oxycodone 5 Mg I r Tab/Cap PO 5 mg Q4H PRN Administration MODERATE PAIN Pantoprazole Sodiu m 40 mg 05/04/20 09:00 05/10/20 22:23 Pantoprazole 40 Mg Sdv IVP 40 mg Q12H MARGARET Administration Sodium Bicarbonate 650 mg 05/09/20 21:00 05/10/20 14:38 Sodium Bicarbona te 650 Mg Tablet PO 650 mg TID MARGARET Administration PFSH Anesthesia PFSH: Medical History Anticoagulation adequate with anticoagulant therapy Xarelto Atrial fibrillation Cardiomyopathy Ejection fraction around 20 to 25% CHF (congestive heart failure) Dyslipidemia History of colon polyps HTN (hypertension) Hypoxia Obesity MIMI on CPAP Sleep apnea Venous insufficiency Surgical History H/O hand surgery Left x2 --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 H/O local excision of skin lesion Right lower leg skin biopsy -- benign History of arthroscopic knee surgery Bilateral History of cardiac radiofrequency ablation History of left inguinal hernia repair History of orchiectomy, unilateral Left -- benign adenomatoid tumor S/P ICD (internal cardiac defibrillator) procedure Family History Other No significant family history Social History Smoking and tobacco status: former smoker Quit status (tobacco): has quit using tobacco Year quit tobacco: Around 2011 Former quit date comment: 100 to [id number] history prior to quitting Alcohol intake: current Alcohol intake frequency: holidays/special occasions only Household members: spouse Marital status: service: No Current occupational status: disabled Data Anesthesia CBC & Chem 7: 05/11/20 04:15 05/11/20 04:15 Other Labs: Laboratory Results - last 48 hr 05/09/20 05/09/20 05/09/20 10:00 14:51 14:51 WBC Cancelled Corrected WBC Cancelled RBC Cancelled Hgb Cancelled Hct Cancelled MCV Cancelled MCH Cancelled MCHC Cancelled RDW Cancelled Plt Count Cancelled MPV Cancelled Gran % Cancelled Neut % (Auto) Cancelled Lymph % (Auto) Cancelled [place] % (Auto) Cancelled Eos % (Auto) Cancelled Baso % (Auto) Cancelled Reticulocyte % (Auto) Neut # (Auto) Cancelled Lymph # (Auto) Cancelled [place] # (Auto) Cancelled Eos # (Auto) Cancelled Baso # (Auto) Cancelled Absolute Gran (auto) Cancelled Nucleated RBC % (auto) Cancelled Nucleated RBCs # Cancelled ESR Haptoglobin PT INR APTT Fibrinogen Specimen Type Sample Site ABG pH ABG pCO2 ABG pO2 ABG HCO3 ABG Base Excess Rafita Test Hematocrit O2 Delivery Device O2 Liters/Min FiO2 Sfd[employer] Technical Architect ID Sodium Cancelled 127 L Potassium Cancelled 5.3 H Chloride Cancelled 99 Carbon Dioxide Cancelled 16 L Anion Gap Cancelled 17.3 BUN Cancelled 88 H* Creatinine Cancelled 4.0 H GFR Calculation Cancelled 15.4 L Glucose Cancelled 110 Calculated Osmolality Cancelled 292 Calcium Cancelled 7.3 L Phosphorus Magnesium Total Bilirubin Cancelled 0.7 AST Cancelled 21 ALT Cancelled 22 Alkaline Phosphatase Cancelled 79 Lactate Dehydrogenase Total Protein Cancelled 5.5 L Albumin Cancelled 2.1 L Globulin Cancelled 3.4 Blood Type Rho(D) Type 05/09/20 05/09/20 05/10/20 15:52 15:52 04:54 WBC 6.9 6.8 Corrected WBC RBC 3.03 L 3.00 L Hgb 9.5 L 9.4 L Hct 30.2 L 30.3 L MCV 99.7 H 101.0 H MCH 31.4 31.3 MCHC 31.5 31.0 RDW 15.9 H 15.9 H Plt Count 34 L 36 L MPV 12.6 H 12.7 H Gran % Neut % (Auto) 80.2 77.8 Lymph % (Auto) 8.5 10.0 [place] % (Auto) 7.8 7.7 Eos % (Auto) 1.2 1.5 Baso % (Auto) 0.1 0.1 Reticulocyte % (Auto) Neut # (Auto) 5.56 5.28 Lymph # (Auto) 0.6 L 0.7 L [place] # (Auto) 0.5 0.5 Eos # (Auto) 0.1 0.1 Baso # (Auto) 0.0 0.0 Absolute Gran (auto) Nucleated RBC % (auto) 0 0 Nucleated RBCs # 0.0 0.0 ESR Haptoglobin PT 14.90 INR 1.13 APTT 29.6 Fibrinogen Specimen Type Sample Site ABG pH ABG pCO2 ABG pO2 ABG HCO3 ABG Base Excess Rafita Test Hematocrit O2 Delivery Device O2 Liters/Min FiO2 Sfd[employer] Technical Architect ID Sodium Potassium Chloride Carbon Dioxide Anion Gap BUN Creatinine GFR Calculation Glucose Calculated Osmolality Calcium Phosphorus Magnesium Total Bilirubin AST ALT Alkaline Phosphatase Lactate Dehydrogenase Total Protein Albumin Globulin Blood Type Rho(D) Type 05/10/20 05/10/20 05/10/20 04:54 04:57 15:10 WBC Corrected WBC RBC Hgb Hct MCV MCH MCHC RDW Plt Count MPV Gran % Neut % (Auto) Lymph % (Auto) [place] % (Auto) Eos % (Auto) Baso % (Auto) Reticulocyte % (Auto) Neut # (Auto) Lymph # (Auto) [place] # (Auto) Eos # (Auto) Baso # (Auto) Absolute Gran (auto) Nucleated RBC % (auto) Nucleated RBCs # ESR 68 H Haptoglobin PT INR APTT Fibrinogen Specimen Type Arterial Sample Site Radial, right ABG pH 7.20 L ABG pCO2 42.1 ABG pO2 102.0 H ABG HCO3 16.5 L ABG Base Excess -10.9 L Rafita Test Pos Hematocrit 29.2 L O2 Delivery Device Nc O2 Liters/Min 3.0 FiO2 32.0 Sfdc Technical Architect ID Gd Sodium 128 L Potassium 5.0 Chloride 99 Carbon Dioxide 17 L Anion Gap 17.0 BUN 90 H* Creatinine 4.2 H GFR Calculation 14.5 L Glucose 97 Calculated Osmolality 294 Calcium 7.5 L Phosphorus 8.1 H* Magnesium 2.4 H Total Bilirubin AST ALT Alkaline Phosphatase Lactate Dehydrogenase Total Protein Albumin Globulin Blood Type Rho(D) Type 05/10/20 05/10/20 05/11/20 20:30 20:30 04:15 WBC 6.1 Corrected WBC RBC 2.95 L Hgb 9.2 L Hct 29.4 L MCV 99.7 H MCH 31.2 MCHC 31.3 RDW 15.6 H Plt Count 41 L MPV 11.8 H Gran % Neut % (Auto) 77.1 Lymph % (Auto) 9.3 [place] % (Auto) 7.4 Eos % (Auto) 1.5 Baso % (Auto) 0.3 Reticulocyte % (Auto) Neut # (Auto) 4.72 Lymph # (Auto) 0.6 L [place] # (Auto) 0.5 Eos # (Auto) 0.1 Baso # (Auto) 0.0 Absolute Gran (auto) Nucleated RBC % (auto) 0 Nucleated RBCs # 0.0 ESR Haptoglobin PT INR APTT Fibrinogen Specimen Type Sample Site ABG pH ABG pCO2 ABG pO2 ABG HCO3 ABG Base Excess Rafita Test Hematocrit O2 Delivery Device O2 Liters/Min FiO2 Sfd[employer] Technical Architect ID Sodium 127 L Potassium 5.3 H Chloride 98 Carbon Dioxide 18 L Anion Gap 16.3 BUN 101 H* Creatinine 3.9 H GFR Calculation 15.8 L Glucose 126 H Calculated Osmolality 297 H Calcium 7.8 L Phosphorus 8.5 H* Magnesium 2.5 H Total Bilirubin 0.6 AST 16 ALT 18 Alkaline Phosphatase 80 Lactate Dehydrogenase Total Protein 5.9 L Albumin 2.2 L Globulin 3.7 Blood Type Subgroup of A Rho(D) Type Positive 05/11/20 05/11/20 05/11/20 04:15 04:15 04:15 WBC Corrected WBC RBC Hgb Hct MCV MCH MCHC RDW Plt Count MPV Gran % Neut % (Auto) Lymph % (Auto) [place] % (Auto) Eos % (Auto) Baso % (Auto) Reticulocyte % (Auto) 0.6900 Neut # (Auto) Lymph # (Auto) [place] # (Auto) Eos # (Auto) Baso # (Auto) Absolute Gran (auto) Nucleated RBC % (auto) Nucleated RBCs # ESR Haptoglobin PT 14.60 INR 1.10 APTT 29.2 Fibrinogen Specimen Type Sample Site ABG pH ABG pCO2 ABG pO2 ABG HCO3 ABG Base Excess Rafita Test Hematocrit O2 Delivery Device O2 Liters/Min FiO2 Sfdc Technical Architect ID Sodium 128 L Potassium 4.9 Chloride 99 Carbon Dioxide 17 L Anion Gap 16.9 BUN 103 H* Creatinine 4.0 H GFR Calculation 15.4 L Glucose 108 Calculated Osmolality 299 H Calcium 7.5 L Phosphorus 8.0 H* Magnesium 2.5 H Total Bilirubin 0.6 AST 16 ALT 15 Alkaline Phosphatase 88 Lactate Dehydrogenase Total Protein 5.9 L Albumin 2.2 L Globulin 3.7 Blood Type Rho(D) Type 05/11/20 05/11/20 04:15 04:15 WBC Corrected WBC RBC Hgb Hct MCV MCH MCHC RDW Plt Count MPV Gran % Neut % (Auto) Lymph % (Auto) [place] % (Auto) Eos % (Auto) Baso % (Auto) Reticulocyte % (Auto) Neut # (Auto) Lymph # (Auto) [place] # (Auto) Eos # (Auto) Baso # (Auto) Absolute Gran (auto) Nucleated RBC % (auto) Nucleated RBCs # ESR Haptoglobin 187.0 PT INR APTT Fibrinogen 479 Specimen Type Sample Site ABG pH ABG pCO2 ABG pO2 ABG HCO3 ABG Base Excess Rafita Test Hematocrit O2 Delivery Device O2 Liters/Min FiO2 Sfdc Technical Architect ID Sodium Potassium Chloride Carbon Dioxide Anion Gap BUN Creatinine GFR Calculation Glucose Calculated Osmolality Calcium Phosphorus Magnesium Total Bilirubin AST ALT Alkaline Phosphatase Lactate Dehydrogenase 287 H Total Protein Albumin Globulin Blood Type Rho(D) Type Micro: Microbiology 05/11/20 04:32 Blood Culture - Preliminary Blood SPECIMEN COLLECTED 05/11/20 04:15 Blood Culture - Preliminary Blood SPECIMEN COLLECTED 05/09/20 18:20 Blood Culture - Preliminary Blood NEGATIVE TO DATE 05/09/20 18:30 Blood Culture - Preliminary Blood NEGATIVE TO DATE 05/06/20 16:45 Blood Culture - Preliminary Blood Staphylococcus aureus 05/06/20 11:45 Blood Culture - Preliminary Blood Staphylococcus aureus Cardiac Studies: No Data to Display
--- NOTE | 2020-05-11 08:40 | PC.NURSE ---
REceived call from nuclear medicine. They have an order for a WBC scan today, but we send the lab to [facility]. THe lab in [facility] is closed until thursday. Was ordered by Dr ivory, current hospitalist for the patient is Dr Mcknight. Nurse alerted dr mcknight and she is okay with the delay.
--- NOTE | 2020-05-11 09:01 | PM.PN ---
Subjective Subjective: Interval history: No new issues overnight. A bit more alert this morning than he was yesterday afternoon at times but still very quick to space out , requires redirecting. Myoclonic jerks persisting as well. Urine output remains very low. Potassium okay but BUN continues to rise. Discussed with nephrology and with surgery and plan is for dialysis catheter placement today and dialysis later today. Central line will also be placed this morning. Given that patient will require anesthesia/sedation for placement, discussed with cardiology who will proceed with a SARAHY afterwards. We have 1 pheresis unit of platelets available for administration prior to procedures. Vitals/I&O/Wt Last Vital Signs Temp 97.6 F 05/11/20 08:21 Pulse 83 05/11/20 08:37 Resp 16 05/11/20 08:37 BP 107/78 05/11/20 08:21 Pulse Ox 95 05/11/20 08:37 05/10/20 05/11/20 05/11/20 22:59 06:59 14:59 Intake Total 60 / 120 701.25 / 821.25 Output Total 168 / 168 80 / 248 90 / 90 Balance -108 / -48 621.25 / 573.25 -90 / -90 Weight last 48 hrs Weight 210.3 kg Physical Exam Const: OTHER: Remains lethargic, will answer simple questions HENMT: OTHER: Dry mucous membranes Eye: OTHER: No nystagmus Neck/C-Spine: OTHER: Supple but large Resp: OTHER: Scattered wheezes persist, increased work of breathing today with kussmal like pattern Cardio: OTHER: Regular rate and rhythm, heart sounds remain distant GI: OTHER: Abdomen soft, no increased tenderness noted, decreased bowel sounds unchanged, no masses : OTHER: Lynn catheter with scant dark urine Extremity: NARRATIVE EXTREMITY EXAM: 3-4 + edema, left upper extremity with increased edema proximally and increased bruising noted posteriorly Neuro: OTHER: myoclonic jerks remain Psych: OTHER: not as interactive Skin: OTHER: lower extremity wounds are slowly drying up further, betadine paint noted, no areas of new draining, fluctuance or induration noted Urinary Catheter Management^: Lynn: Cath Placed During This Visit: yes Reason for Continuing Indwelling Catheter: Accurate Measurement of Urinary Output in Critically Ill Patients Urinary Catheter Date of Insertion: 05/05/20 Urinary Catheter Time of Insertion: 11:55 Data : 05/11/20 04:15 05/11/20 04:15 Micro: Microbiology 05/11/20 04:32 Blood Culture - Preliminary Blood SPECIMEN COLLECTED 05/11/20 04:15 Blood Culture - Preliminary Blood SPECIMEN COLLECTED 05/09/20 18:20 Blood Culture - Preliminary Blood NEGATIVE TO DATE 05/09/20 18:30 Blood Culture - Preliminary Blood NEGATIVE TO DATE 05/06/20 16:45 Blood Culture - Preliminary Blood Staphylococcus aureus 05/06/20 11:45 Blood Culture - Preliminary Blood Staphylococcus aureus A&P Assessment and plan (1) Staphylococcus aureus bacteremia: Oxacillin sensitive. Repeat blood cultures 05/09 and 05/11 remain no growth to date, cultures prior to that all with staph. Source has not been clearly identified. Dr Ferreira with infectious disease following. SARAHY to be done today. WBC tagged scan ordered but cannot be done until thursday per nuclear medicine because of the holiday. With ICD in place have to consider if it might be source or seeded, whether it can stay in or has to come out. Has been treated with cefepime and linezolid initially, changed to cefazolin on 05/10 based on sensitivities Status: Acute (2) ANTONIO (acute kidney injury): Oliguric, progressively worsening. Suspect combination of ATN and contrast-induced nephropathy. Cannot rule out an embolic/thrombotic process given recent Covid infection and significant thrombocytopenia. Has progressively worsening metabolic acidosis, azotemia, though potassium hasa remained stable. Nephrology following. Hemodialysis planned to start today 05/11 after dialysis catheter placement. Status: Acute (3) Thrombocytopenia: Pevely related to bone marrow suppression from sepsis or even potentially recent Covid infection. Platelets had been normal at last hospital stay when he was discharged on April 25. He was discharged on anticoagulation with Xarelto. PT and PTT were elevated a bit as well as fibrinogen; normalized quickly. LDH was a bit elevated but similar to previous. No schistocytes reported. Comparatively white count and hemoglobin have been okay. Did not have other findings suggestive of DIC or TTP. Had not been on heparin that I could discern either stay. Had hematemesis at presentation but with cessation of oral anticoagulation that has not recurred. Platelets are slowly trending upward. Has received a total now of 2 pharesis units of platelets (05/06 and today 05/11 pre-procedure). Status: Acute (4) Sepsis: Had leukocytosis, tachycardia, soft blood pressures at presentation, multiple positive blood culture bottles. Heart rate had been difficult to manage, but currently with stable rate and blood pressure, no blood pressures. Status: Acute Qualifiers: Sepsis type: sepsis due to unspecified organism Sepsis acute organ dysfunction status: with acute organ dysfunction Severe sepsis acute organ dysfunction type: unspecified Severe sepsis shock status: without septic shock Qualified Code(s): A41.9 - Sepsis, unspecified organism; R65.20 - Severe sepsis without septic shock (5) Paroxysmal atrial fibrillation with RVR: Difficult to control at times, responds to beta-blockade generally speaking, required esmolol drip transiently, was on amiodarone outpatient, currently stopped due to comorbid acute issues. Has had ablation in the past. Cardiology following. Status: Chronic (6) Pneumonia due to COVID-19 virus: Early April 2020, hospitalized here Status: Resolved (7) Cardiomyopathy: Ejection fraction around 20-25%, chronically on diuretics and Entresto, has ICD. Getting intermittent lasix without much result currently and entresto held due to renal issues. Status: Chronic Qualifiers: Cardiomyopathy type: unspecified Qualified Code(s): I42.9 - Cardiomyopathy, unspecified (8) S/P ICD (internal cardiac defibrillator) procedure: Due to cardiomyopathy, concern it could be a source of MSSA infection versus impacted by it Status: Chronic (9) Venous insufficiency: With chronic lower extremity stasis wounds, has been evaluated by wound care (Dr Renteria evaluated as part of consultation) and currently receiving betadine paint to legs to help dry up the sores/scab, no indication presently for debridement, not felt to be source of infection, has followed with wound care before Status: Chronic (10) Acute upper GI bleed: Earlier in course of hospital stay, received a pheresis unit of platelets, no recurrence thus far, suspect due to gastritis secondary to recent acute issues in setting of anticoagulation and thrombocytopenia, on PPI Status: Resolved (11) Diarrhea: Was felt secondary to GI bleeding, resolved Status: Resolved (12) Sleep apnea: Nightly CPAP/BiPAP when he is agreeable Status: Chronic (13) Morbid obesity with BMI of 60.0-69.9, adult: Status: Chronic Additional A&P Information Hypertension history, has not been issue during this hospitalization Dyslipidemia Deconditioning from multiple medical issues this past month in the setting of comorbid conditions Poor oral intake, says no appetite, but also with some coating on tongue, denies painful swallowing Difficult IV access/lab draws, CVL to be placed today 05/11 Plan 05/11: Dr Renteria to take to OR for dialysis catheter and CVL placement Will require intubation and anesthesia Dr Bush will do SARAHY today Dr Marquis will order hemodialysis for later today Currently this is for acute hemodialysis; hopefully he will not require transition to chronic dialysis Continue nephrotoxic medications/renally dosing others Bicarb drip started 05/10, likley stop later today, oral sodium bicarb on hold due to npo status for procedures Maintain Lynn catheter for close monitoring of urine output due to above Dr Ferreira following Currently on Cefazolin since 05/10 Linezolid 05/06-05/10 Cefepime 05/05-05/08 Pending blood cultures from 05/09 and 05/11 NGTD WBC tagged scan ordered, cannot be done until thursday Anticipate need for local intermodal truck driver IV antibitics and potential PICC placement given persisent bacteremia without clear source, but need negative cultures for 72 hours Continue Metoprolol for rate control Has orders for IV lasix presently Monitor volume status closely given cardiomyopathy BiPAP/CPAP at night when he will agree Pulmonary toilet as needed Oxygen therapy and incentive spirometer PT following for increasing activity as able Gear Tooth Grinding Machine Operator evaluation given poor oral intake, need supplemental nutrition, add nephro in interim after extubation Add Nystatin Swish and swallow Continue Betadine paint to lower extremities presently as per wound care recommendations Remains off of home oral Lasix and Entresto Home aspiring and xarelto (on for afib history) held due to thrombocytopenia and GI bleeding Home amiodarone held during this hospital stay due to increasing LFTs, dose had been increased not long before this admission Bariatric bed and chair in use On PPI for GI bleed, which provide GI prophylaxis SCDs for DVT prophylaxis Full code Discussed with nursing, consultants and will touch base with later today Had been accepted at [facility] in this am, but on hold given acute procedures today. Attestations Medical Necessity Statement*: Requires ongoing inpatient stay for reasons noted above, most acutely the need to initiate hemodialysis today Coding Level of Care Code Acute Trail Maintenance Worker for Chg Fwd Diagnoses Staphylococcus aureus bacteremia R78.81; B95.61 ANTONIO (acute kidney injury) N17.9 Thrombocytopenia D69.6 Sepsis A41.9; R65.20 Sepsis type: sepsis due to unspecified organism Sepsis acute organ dysfunction status: with acute organ dysfunction Severe sepsis acute organ dysfunction type: unspecified Severe sepsis shock status: without septic shock Paroxysmal atrial fibrillation with RVR I48.0 Pneumonia due to COVID-19 virus U07.1; J12.89 Cardiomyopathy I42.9 Cardiomyopathy type: unspecified S/P ICD (internal cardiac defibrillator) procedure Z95.810 Venous insufficiency I87.2 Acute upper GI bleed K92.2 Diarrhea R19.7 Sleep apnea G47.30 Morbid obesity with BMI of 60.0-69.9, adult E66.01; Z68.44
[2020-05-11] MEDS: sodium chloride 0.9% 1,000 ML 30 ML IV (09:02)
--- NOTE | 2020-05-11 09:16 | SC_ITS ---
WS: [id number] C-ARM RADIOGRAPHS CHEST; 4 IMAGES HISTORY: Hemodialysis catheter and central line placement COMPARISON: None available. Interval placement of a RIGHT central line with tip overlying the distal SVC. Also insertion of a chen ble lumen LEFT dialysis catheter with tip extending to the RIGHT atrial junction. Superimposed dual l ead LEFT subclavian pacer. Patient is intubated. SC/C-arm FL for CVA [id number] IMPRESSION: Interval insertion of a RIGHT central line and a double lumen LEFT IJ dialysis catheter. Both catheters appear to be in good position and alignment on this C- arm image.
[2020-05-11] MEDS: lidocaine 2% INJ 20 mL INJECTION (10:20)
--- NOTE | 2020-05-11 10:35 | USCV_ITS ---
Harry Miles Age: 59 Gender: M : 1960 Exam Date: 05/11/2020 12:25 Ordering Phys: Diallo Bush MD ([email or web address]) Technologist: Thelma Tian [place] [facility] [place]: BP: / HR: Rhythm: Sinus Technical Quality: MEASUREMENTS (Male / Female) Normal Values Medications Patient given IV sedation by anesthesia service, for details please refer to the anesthesia report. Patient is intubated for the surgery, during this intubation we will perform the SARAHY as well. Patient has been explained all risk benefit and alternative for the procedure by myself and anesthesia Complications Proc. Components FINDINGS Left Ventricle Moderately increased left ventricular cavity size. Severely decreased left ventricular systolic function. Left ventricular ejection fraction is estimated at 35 %., Please note that due to foreshortening of left ventricle estimation of ejection fraction may not be accurate. Right Ventricle Normal right ventricular size. Catheter/pacemaker wire visualized in the right ventricle. No obvious vegetation noted on the pacemaker wire however thickening of the pacemaker wire could represent tissue versus vegetation Right Atrium Mildly increased right atrial size. Catheter/pacemaker wire in the right atrial cavity. Left Atrium The left atrium is normal in size. LA Appendage The LA appendage is normal. IA Septum The interatrial septum is normal. Mitral Valve Structurally normal mitral valve without significant stenosis or prolapse. There is no mitral regurgitation. Aortic Valve Structurally normal aortic valve without significant sclerosis or stenosis. There is no aortic regurgitation. Tricuspid Valve A 2.7 cm2 mobile mass noted on the tricuspid valve highly suspicious for vegetation, there. Mild tricuspid regurgitation Pulmonic Valve Structurally normal pulmonic valve without significant stenosis. There is no pulmonic regurgitation. Pericardium Normal pericardium without effusion. Aorta Normal ascending aorta dimension. CONCLUSIONS 1-Moderately increased left ventricular cavity size. Severely decreased left ventricular systolic function. Left ventricular ejection fraction is estimated at 35 %., Please note that due to foreshortening of left ventricle estimation of ejection fraction may not be accurate. 2-A 2.7 cm2 mobile mass noted on the tricuspid valve highly suspicious for vegetation, there. Mild tricuspid regurgitation. 3-Mildly increased right atrial size. Catheter/pacemaker wire in the right atrial cavity. 4-Normal right ventricular size. Catheter/pacemaker wire visualized in the right ventricle. No obvious vegetation noted on the pacemaker wire however thickening of the pacemaker wire could represent fibrous tissue versus vegetation. 5-The LA appendage is normal. 6-Structurally normal pulmonic valve without significant stenosis. There is no pulmonic regurgitation. 7-Structurally normal aortic valve without significant sclerosis or stenosis. There is no aortic regurgitation. 8-There is no pericardial effusion. 9-There are no prior echocardiogram studies to compare. All above findings were conveyed to Dr. Ratliff by myself Diallo Bush MD (Electronically Signed) Final Date: 11 May 2020 17:06 S
[2020-05-11] MEDS: heparin, porcine 1,000 unit/mL INJ 10 mL 10000 UNIT HE (10:56)
[2020-05-11 10:58] LABS: Hepatitis B Surface AB 3.5 (0-8.5); Hepatitis B Surface Antigen Non-Reactive (Nonreactive); Hepatitis C Virus Antibody Non-Reactive (Nonreactive)
[2020-05-11 11:32] LABS: ABG PCO2 49.5 mmHg (35-45); Alveolar-Arterial Oxygen Gradi 4.9 mmHg (5-10); Arterial Blood Gas Hematocrit 26.2 % (42-52); Base Excess ABG -8.3 mmol/L (-2.0-2.0); Blood Gas Sample Type Arterial; Carboxyhemoglobin 1.9 %THgb (0.4-20.1); HCO3 ABG 19.3 mmol/L (22-26); HGB O2 Sat 80.9 % (95-100); Ionized Calcium Level - ABG 1.1 mmol/L (1.1-1.4); Methemoglobin 1.1 % (0.4-1.5); Oxygen Saturation ABG 83.4; PO2 ABG 52.4 mmHg (80.0-100.0); Potassium Level - ABG 4.8 mmol/L (3.5-5.0); Total Hemoglobin 8.6 g/dL (14-18)
[2020-05-11 11:34] LABS: Blood Gas Sample Site Not specified; Oxygen Device VENTURI
--- NOTE | 2020-05-11 11:51 | XR_ITS ---
WS: [id number] CHEST, 1 view. HISTORY: chest xray stat at ICU after transfer from surgery, COMPARISON: Compared to C-arm radiograph earlier the same day. RIGHT IJ catheter has been placed with tip in the distal SVC. Double lumen dialysis catheter has been placed through the LEFT internal jugular vein. The tip of thi s catheter is at the junction of the innominate with the SVC and does not extend inferiorly into the IVC. On the recent C-arm radiograph the distal tip was obscured and thought to be at the RIGHT atrial junction. Endotracheal tube is in good position. There are bilateral pulmonary opacifications which are new since 05/03/2020. LEFT apical capping was not present on 05/03/2020. No pneumothorax. Increasing consolidation at the LEFT lung base. LEFT diap hragm is obscured. Cardiac size: Cardiac silhouette is partially obscured by the increasing opacification or fluid at th e LEFT base. Cardiac size is enlarged as seen on prior studies. Mediastinum/Aorta: Mild widening of the mediastinum is new and may in part be due to rotation and sup ine positioning. Adjacent bladder is not excluded. No osseous abnormality seen. XR/XR chest 1V [id number] IMPRESSION: 1. RIGHT IJ line with tip in the distal SVC. 2. New LEFT IJ line terminates at the junction of the innominate with SVC. Thi s line was thought to be in the distal SVC on the C-arm radiograph but on this radiograph is still at the junction. 3. New bilateral opacifications with at least a small layering LEFT pleural ef fusion. These findings are new since 05/03/2020 and may be related to the recen t line placement. Mediastinal bleeding should be considered clinically. Notified Matrín Renteria MD at 05/11/2020 12:38 PM.
[2020-05-11 12:26] LABS: ABG PCO2 33.2 mmHg (35-45); ABG PH Result 7.24 (7.35-7.45); Alveolar-Arterial Oxygen Gradi 1.1 mmHg (5-10); Arterial Blood Gas Hematocrit 21.1 % (42-52); Base Excess ABG -12.1 mmol/L (-2.0-2.0); Blood Gas Allen Test Pos; Blood Gas Operator Identificat BROMA; Blood Gas Sample Type Arterial; Carboxyhemoglobin 1.7 %THgb (0.4-20.1); HCO3 ABG 14.2 mmol/L (22-26); HGB O2 Sat 94.9 % (95-100); Ionized Calcium Level - ABG 0.9 mmol/L (1.1-1.4); Methemoglobin 1.4 % (0.4-1.5); PO2 ABG 99.2 mmHg (80.0-100.0); Potassium Level - ABG 3.7 mmol/L (3.5-5.0); Total Hemoglobin 6.9 g/dL (14-18)
--- NOTE | 2020-05-11 12:36 | XR_ITS ---
WS: [id number] PORTABLE CHEST HISTORY: Status post HD catheter ,right IJ vein placement COMPARISON: 05/11/2020 at 12:12 AM. No change in the RIGHT IJ catheter placement. LEFT IJ catheter terminates in the distal innominate an d at the 6 SVC junction. There is a small layering pleural effusion without increase in size. Atelectasis and partial obscurat ion of the aortic arch. Mild diffuse pulmonary congestion. No pneumothorax. Cardiac size: Moderately enlarged cardiac silhouette. Mediastinum/Aorta: Mild atherosclerosis aorta. No osseous abnormality seen. XR/XR chest 1V portable [id number] IMPRESSION: 1. Persistent small pleural effusion without significant increase in size sinc e the study earlier the same day. 2. Increased soft tissue adjacent to the aortic arch may be atelectasis. With recent procedure small amount of blood and hemorrhage is not excluded. Suspect changes in the LEFT lung and mediastinal all related to patient's fluid overloa d as he clinically remains stable with no evidence for hemorrhage or tachycardi a. 3. Mild pulmonary venous congestion. The changes within the LEFT lung and medi astinum may all be related to fluid overload. Notified Martín Renteria MD at 05/11/2020 1:25 PM.
--- NOTE | 2020-05-11 12:42 | PM.OP ---
Operative Report Date of procedure: May 11, 2020 Pre-op Diagnosis: ANTONIO + sepsis Post-op diagnosis: same Procedure Done: Right IJ hemodialysis catheter placement Left IJ triple-lumen central line placement Interpretation of ultrasound and fluoroscopic guidance was done by me through the whole entire procedure Implants: Right IJ vein hemodialysis catheter 12 Jordanian/16 cm Left IJ vein triple-lumen central line placement 7 Jordanian Surgeon: Martín Renteria [employer] Service Helper: music sound light technician [place] Anesthesia: General (Ashley Chavarria and Dr. Campa) Estimated blood loss (mL): 75 Condition: critical Disposition: ICU Brief History: Full H&P per chart This is a 59 years old gentleman morbidly obese with multiple medical comorbidities, appears to be in sepsis and requiring hemodialysis and central line placement. Informed consent was obtained from the patient's spouse Procedure: Patient was identified in the ICU and taken to the operative room and placed in supine position ,both arms were tucked,Time-out was done verifying the patient's name/date of /planned procedure and destination after the procedure, all were in agreement.SCDs confirmed to be functioning, intubated by anesthesia ,patient was given prophylactic antibiotics administered per protocol, and beta fausto protocol was confirmed, appropriate positioning of the patient was done by me. Medications were reviewed to assess for anticoagulant usage. Risks and benefits and prevention of central line associated blood stream infection (CLABSI) were discussed with the patient/CPOA, and a consent was obtained. Monitors were in place and monitored throughout the procedure. All necessary supplies were available prior to start. Hand hygiene was completed prior to starting. Maximum barrier technique was utilized including a sterile gown, sterile gloves with a hat and mask. Site was was prepped with [chlorhexidine] and a full body drape was placed. 5 mL of 2% lidocaine was injected into the skin with a 25 gauge needle. Prep& drape was done under the usual sterile technique of upper chest right and left as well as the neck both sides, lidocaine 2% was injected at the site of the stick, started by right internal jugular vein stick that retrieved venous blood was obtained from the first stick under ultrasound guidance and there was no evidence of intraluminal thrombosis. A guidewire was then threaded without any difficulty and under the guidance of fluoroscopy position was confirmed to be in the IVC, there was no PVC changes, at that point the guidewire was secured to the drapes with a hemostat and the needle was taken out, attention was then deviated towards creation of an insert for the HD catheter at the right side of the neck using an 11 blade knife skin incision was created and serial dilators were used and finally an HD catheter 12 Jordanian 16 cm was placed without difficulty and appropriate positioning was interpreted by me via fluoroscopy through the whole entire procedure and found to be in good position.Catheter was then secured to the right side of the neck. Both ports were flushed with diluted heparin and appropriate blood was retrieved first, Hep-Lock's were then applied. The catheter was then secured to the side of the neck with 2-0 nylon. Attention now was deviated towards the right subclavian vein were couple of attempts were made but there was no obvious success to retrieve blood and at this point I did abort and did deviate my attention towards the left internal jugular vein and under ultrasound guidance, the first attempt was done but showed arterial flow so I held pressure for few minutes then I reattempted and at this time I was able to retrieve venous blood and there was no evidence of intraluminal thrombosis, the guidewire was passed without difficulty towards the IVC and there were no PVCs. A dilator was used coming in the kit with a triple-lumen and following that dilator was retrieved and the triple-lumen 7 Jordanian was placed onto the guidewire was found to be in good position and the wire was then taken out. All ports flushed good retrieving good flow of blood yet there was some concern that could be arterial because of its color,Amfbiabian test was done and it was negative and also I elected to send for an ABG at 11:14 am but the sample was not optimally collected so I asked anesthesia to slow down on the 100% oxygen and I repeated the sample at 1120 that showed venous sample. At this point the catheter was placed and secured in place with 2-0 nylon and there was some oozing around the catheter so I placed Surgicel for hemostasis The whole procedure was done under fluoroscopy , the position maintained to be in the rt atrium that was confirmed with fluoroscopy, and the fluoroscopy interpretation was done by me throughout the entire procedure. And also I did delinquency counselor Dr. Larsen and verified the appropriate position of the catheters intraoperatively Patient tolerated the procedure well was taken to the ICU Count was correct at the end of the procedure I was present for the whole entire procedure
[2020-05-11] MEDS: propofol 1,000 MG/100 ML INJ 6.3 MG IV (12:52)
--- NOTE | 2020-05-11 13:45 | PC.NURSE ---
REceived patient back from surgery. Hemodialysis port placed. SARAHY then completed at bedside by dr beaulieu. Transfer from surgery uneventful. Patients vitals are within normal limits. Currently intubated and sedated with propofol.
--- NOTE | 2020-05-11 14:11 | PC.NURSE ---
Low blood pressure during dialysis. Nurse decreased propofol and continued to monitor.
--- NOTE | 2020-05-11 14:12 | PC.NURSE ---
Nurse reassessed BP after decreasing propofol. BP increased to 93/57 and patient remains calm.
[2020-05-11 16:39] LABS: ABG PCO2 45.7 mmHg (35-45); Alveolar-Arterial Oxygen Gradi 11.6 mmHg (5-10); Arterial Blood Gas Hematocrit 27.1 % (42-52); Base Excess ABG -3.6 mmol/L (-2.0-2.0); Blood Gas Allen Test Pos; Blood Gas Operator Identificat CAK; Blood Gas Sample Site Radial, left; Blood Gas Sample Type Arterial; Carboxyhemoglobin 1.4 %THgb (0.4-20.1); HCO3 ABG 22.7 mmol/L (22-26); HGB O2 Sat 91.9 % (95-100); Ionized Calcium Level - ABG 1.1 mmol/L (1.1-1.4); Methemoglobin 0.9 % (0.4-1.5); Oxygen Device VENT; Oxygen Saturation ABG 94.1; PO2 ABG 69.8 mmHg (80.0-100.0); Potassium Level - ABG 4.3 mmol/L (3.5-5.0); Total Hemoglobin 8.8 g/dL (14-18)
[2020-05-11] MEDS: propofol 1,000 MG/100 ML INJ 18.9 MG IV (17:31)
--- NOTE | 2020-05-11 18:09 | PM.PN ---
Subjective Subjective: Interval history: I saw him this morning for follow up for his renal failure. He is sleepy, nauseated & short of breath Medications: Reviewed: Yes Vitals/I&O/Wt Last Vital Signs Temp 97.6 F 05/11/20 08:21 Pulse 86 05/11/20 16:00 Resp 14 05/11/20 17:43 BP 95/59 05/11/20 16:00 Pulse Ox 95 05/11/20 16:00 05/11/20 05/11/20 05/11/20 06:59 14:59 22:59 Intake Total 701.25 / 821.25 1340.9 / 1340.9 41.79 / 1382.69 Output Total 80 / 248 115 / 115 Balance 621.25 / 573.25 1225.9 / 1225.9 41.79 / 1267.69 Weight last 48 hrs Weight 210.3 kg Physical Exam Const: EXAM LIMITATIONS: altered mental status GENERAL APPEARANCE: cooperative ORIENTATION/CONSCIOUSNESS: Yes awake Resp: AUSCULTATION: crackles Cardio: COMMON NORMALS: S1 normal heart sound present and S2 normal heart sound present HEART SOUNDS: S1 normal heart sound present and S2 normal heart sound present GI: AUSCULTATION: Yes normoactive bowel sounds Extremity: GENERAL: Yes edema Skin: COMMON NORMALS: no rashes or lesions noted GENERAL SKIN EXAM: no rashes or lesions noted Urinary Catheter Management^: Lynn: Cath Placed During This Visit: yes Reason for Continuing Indwelling Catheter: Accurate Measurement of Urinary Output in Critically Ill Patients Urinary Catheter Date of Insertion: 05/05/20 Urinary Catheter Time of Insertion: 11:55 Data : 05/11/20 04:15 05/11/20 04:15 Micro: Microbiology 05/09/20 18:30 Blood Culture - Preliminary Blood Gram positive cocci 05/09/20 18:20 Blood Culture - Preliminary Blood Gram positive cocci 05/11/20 13:48 Gram Stain - Final Sputum - Endotracheal Tube Aspirate 05/06/20 16:45 Blood Culture - Final Blood Staphylococcus aureus 05/06/20 11:45 Blood Culture - Final Blood Staphylococcus aureus 05/11/20 04:32 Blood Culture - Preliminary Blood SPECIMEN COLLECTED 05/11/20 04:15 Blood Culture - Preliminary Blood SPECIMEN COLLECTED A&P Assessment and plan (1) ANTONIO (acute kidney injury): Pt is getting more uremic. D/w hospitalist regarding the treatment plan, mainly dialysis. Explained to pt & his regarding the risks and benefits involved in dialysis, both gave consent for dialysis. Requested surgeon to place temporary hemodialysis catheter. Once it is placed, we will proceed with dialysis for 2hrs, 2k, 2.5 Ca,qb 300, qd 600, uf 500ml if tolerated Status: Acute (2) Acidosis: Will correect with dialysis Status: Acute (3) Hyponatremia: Expect it to improve with dialysis Status: Acute (4) Anemia: Follow hb closely Status: Acute Attestations Medical Necessity Statement*: renal failure Coding Level of Care Code Acute Strategy Intern for g Fwd Diagnoses ANTONIO (acute kidney injury) N17.9 Acidosis E87.2 Hyponatremia E87.1 Anemia D64.9
[2020-05-11] MEDS: pantoprazole 40 mg SDV IVP (20:26)
[2020-05-11] MEDS: propofol 1,000 MG/100 ML INJ 25.2 MG IV (20:32)
[2020-05-12] VITALS (40 sets, daily range): BP systolic 89–128; BP diastolic 38–80; PULSE 75–119; RESP 12–20; TEMP 36.6–37.4; O2SAT 90–96
[2020-05-12] MEDS: FUROsemide 10 mg/mL SDV 4mL 40 MG IVP (03:16)
[2020-05-12 04:16] LABS: Basophils % 0.2 %; Eosinophils # 0.1 10^3/uL (0.0-0.8); Eosinophils % 2.1 %; Hematocrit 22.4 % (42.0-52.0); Hemoglobin 7.2 g/dL (11.7-16.6); Lymphocytes # 0.8 10^3/uL (0.8-4.8); Lymphocytes % 17.2 %; Mean Corpuscular HGB Conc 32.1 g/dL (30.0-36.0); Mean Corpuscular Hemoglobin 31.2 pg (28.0-34.0); Mean Platelet Volume 12.2 fL (7.4-10.4); Monocytes # 0.4 10^3/uL (0.2-0.9); Monocytes % 8.7 %; Neutrophils # 3.19 10^3/uL (1.8-7.7); Neutrophils % 67.6 %; Nucleated Red Blood Cells % 0 %; Platelet Count 47 10^3/cmm (130-400); Red Blood Count 2.31 10^6/uL (4.1-5.3); Red Cell Distribution Width 15.1 % (12.1-15.1); White Blood Count 4.7 10^3/uL (4.0-10.0)
[2020-05-12 04:42] LABS: Anion Gap 13.7 (5-19); Calcium 7.2 mg/dL (8.5-10.5); Carbon Dioxide 24 mmol/L (22-29); Chloride 101 mmol/L (98-107); Glomerular Filtration Rate 16.3 mL/min (90-130); Glucose 94 mg/dL (65-115); Magnesium 2.2 mg/dL (1.7-2.3); Osmolality Calculated 304 mOsm/kg (285-295); Phosphorus 6.5 mg/dL (2.5-4.5); Potassium 4.7 mmol/L (3.5-5.1); Sodium 134 mmol/L (136-145)
[2020-05-12 04:48] LABS: Blood Urea Nitrogen 85 mg/dL (8-23)
--- NOTE | 2020-05-12 05:05 | PM.PN ---
Subjective Subjective: Interval history: Infectious disease progress note Events from 05/11 reviewed. Interval placement of IJ and HD catheter yesterday. S/p HD x 1 yesterday. Intubated since post procedure. Blood cx from 05/09 also now reported positive for GPC, likely to be staph aureus. SARAHY in the or yesterday with Medications: Reviewed: Yes Vitals/I&O/Wt Last Vital Signs Temp 97.8 F 05/12/20 00:00 Pulse 87 05/12/20 02:30 Resp 15 05/12/20 03:59 BP 109/56 05/12/20 02:30 Pulse Ox 94 05/12/20 02:30 05/11/20 05/11/20 05/12/20 14:59 22:59 06:59 Intake Total 1340.9 / 1340.9 399.64 / 1740.54 100 / 1840.54 Output Total 115 / 115 128 / 243 Balance 1225.9 / 1225.9 271.64 / 1497.54 100 / 1597.54 Weight last 48 hrs Weight 210.3 kg Physical Exam Narrative: EXAM NARRATIVE: GEN: intubated,sedated CVS: S1S2 N Abd: Soft, nt/nd , bs+ RAWHIDE BONE ROLLER: unable to assess Urinary Catheter Management^: Lynn: Cath Placed During This Visit: yes Reason for Continuing Indwelling Catheter: Accurate Measurement of Urinary Output in Critically Ill Patients Urinary Catheter Date of Insertion: 05/05/20 Urinary Catheter Time of Insertion: 11:55 Data : 05/12/20 03:40 05/12/20 03:40 Micro: Microbiology 05/12/20 03:40 Blood Culture - Preliminary Blood SPECIMEN COLLECTED 05/09/20 18:30 Blood Culture - Preliminary Blood Gram positive cocci 05/09/20 18:20 Blood Culture - Preliminary Blood Gram positive cocci 05/11/20 13:48 Gram Stain - Final Sputum - Endotracheal Tube Aspirate 05/06/20 16:45 Blood Culture - Final Blood Staphylococcus aureus 05/06/20 11:45 Blood Culture - Final Blood Staphylococcus aureus 05/11/20 04:32 Blood Culture - Preliminary Blood SPECIMEN COLLECTED 05/11/20 04:15 Blood Culture - Preliminary Blood SPECIMEN COLLECTED SARAHY: Radiologist's impression: SARAHY 05/11 CONCLUSIONS 1-Moderately increased left ventricular cavity size. Severely decreased left ventricular systolic function. Left ventricular ejection fraction is estimated at 35 %., Please note that due to foreshortening of left ventricle estimation of ejection fraction may not be accurate. 2-A 2.7 cm2 mobile mass noted on the tricuspid valve highly suspicious for vegetation, there. Mild tricuspid regurgitation. 3-Mildly increased right atrial size. Catheter/pacemaker wire in the right atrial cavity. 4-Normal right ventricular size. Catheter/pacemaker wire visualized in the right ventricle. No obvious vegetation noted on the pacemaker wire however thickening of the pacemaker wire could represent fibrous tissue versus vegetation. 5-The LA appendage is normal. 6-Structurally normal pulmonic valve without significant stenosis. There is no pulmonic regurgitation. 7-Structurally normal aortic valve without significant sclerosis or stenosis. There is no aortic regurgitation. 8-There is no pericardial effusion. 9-There are no prior echocardiogram studies to compare. Other data: Blood cultures: 05/11: pending 05/09: GPC 07/19 05/07 and 05/08: N/A 05/06 : MSSA 05/05: MSSA 05/04: N/A 05/03: 09/16 MSSA 05/05: urine cx : MSSA 05/06: sputum cx : resp mikki 05/04: C diff PCR: negative A&P Assessment and plan (1) Septicemia: Persistent MSSA bacteremia 05/03, 05/05, 05/06, 05/09 intermittent cx N/A due to difficulty with blood draws Previously on on cefepime 1g iv q24h 05/05-05/08 and linezolid 05/05-05/11 Started cefazolin 2g iv q8h (cr cl ~35 using IBW) 05/10---> change to nafcillin today with initiation of HD and availability of CVC SARAHY completed on 05/11 with findings of 2.7cm mobile mass on TV highly likely to be vegetation, no gross vegetations noted on pacemaker wire, however note made of some thickening. Mild tricuspid regurgitation. continue to obtain daily blood cx until negative x 3 days hold off on PICC line until blood cx negative for at least 72 hrs CVC and temporary HD catheter placed 05/11 last + cx 05/09, awaiting 05/[address] surgery consult to assess for role of early surgery given persistent Staph bacteremia since at least 05/03, sepsis leading to multiorgan failure, evidence of heart failure, large mobile tricuspid vegetation 2.7cm CT thoracolumbar spine negative for discitis/epidural abscess, chronic LE wounds without signs of cellulitis, urine cx + MSSA, however not the source with normal anatomy and no indwelling hardware, more likely that + urine cx represents high grade bacteremia.CXR with worsening infiltrates B/L, may be represnettaive of CHF vs embolization. Status: Acute (2) Staphylococcus aureus bacteremia: As above Status: Acute (3) ANTONIO (acute kidney injury): Renal recommendations noted May be contrast related vs GN from MSSA septicemia Unlikely AIN from b lactams given timeline Status: Acute (4) Thrombocytopenia: May be related to sepsis w/up per primary team present on admission, less likely related to b lactams Linezolid discontinued 05/11 Status: Acute (5) Atrial fibrillation: management per cardiology Status: Acute Attestations Medical Necessity Statement*: please see admitting dada's note Time Spent in Patient Care: Greater than 35 minutes Critical Care Time: Critical Care Time (min): 60 Coding Level of Care Code Acute Telephone Assembler for [facility] Fwd Diagnoses Septicemia A41.9 Staphylococcus aureus bacteremia R78.81; B95.61 ANTONIO (acute kidney injury) N17.9 Thrombocytopenia D69.6 Atrial fibrillation I48.91
[2020-05-12 05:21] LABS: ABG PCO2 33.7 mmHg (35-45); ABG PH Result 7.44 (7.35-7.45); Arterial Blood Gas Hematocrit 23.8 % (42-52); Base Excess ABG -0.8 mmol/L (-2.0-2.0); Blood Gas Allen Test Pos; Blood Gas Operator Identificat JB; Blood Gas Sample Site Radial, right; Blood Gas Sample Type Arterial; Blood Gas Tidal Volume 0.55; HCO3 ABG 23.1 mmol/L (22-26); Oxygen Device VENT; PO2 ABG 78.2 mmHg (80.0-100.0)
--- NOTE | 2020-05-12 05:39 | XRR_ITS ---
PROCEDURE INFORMATION: Exam: XR Chest, 1 View Exam date and time: 05/12/2020 7:39 AM Age: 59 years old Clinical indication: Shortness of breath; Prior surgery; Surgery type: Pacer, central line; Additional info: Follow us/p right ij hd and lt ij triple lumen central line. TECHNIQUE: Imaging protocol: XR of the chest Views: 1 view. COMPARISON: CR XR chest 1V portable [id number] 05/11/2020 1:04 PM FINDINGS: Tubes, catheters and devices: Bilateral internal jugular catheters are present with the tips projecting in the SVC. An endotracheal tube is present in satisfactory position. Permanent pacemaker appears intact. Lungs: The left base is opacified consistent with left lower lobe atelectasis and consolidation. There is hazy interstitial infiltration of the right lung. Pleural space: Unremarkable. No pleural effusion. No pneumothorax. Heart/Mediastinum: The cardiac silhouette is enlarged but unchanged. Bones/joints: Unremarkable. XR/XR chest 1V portable [id number] IMPRESSION: 1. Stable positions of the endotracheal tube and central venous catheters. 2. Stable cardiomegaly. 3. Left lower lobe atelectasis/consolidation and bilateral interstitial infiltrates unchanged.
--- NOTE | 2020-05-12 05:42 | P.PN_ITS ---
Subjective Subjective: Interval history: Patient is a status post right internal jugular vein12 [place] temporary HD catheter placement and left IJ triple-lumen 7 [place] central line placement.05/11/2020. Patient continues to be intubated on mechanical ventilation and did receive 1 session of dialysis and 500 mL of fluids were pulled yesterday. Improvement in overall kidney function numbers today and some drift in H&H. SARAHY was done yesterday by Dr. Bush that showed Likely vegetations On the t ricuspid valve and mild left pleural effusion and no pericardial effusion. Patient continues to be oliguric Otherwise no acute events overnight CXR regional controller; Clinical indication: Shortness of breath; Prior surgery; Surgery type: Pacer, central line; Additional info: Follow us/p right ij hd and lt ij triple lumen central line. TECHNIQUE: Imaging protocol: XR of the chest Views: 1 view. COMPARISON: CR XR chest 1V portable [id number] 05/11/2020 1:04 PM FINDINGS: Tubes, catheters and devices: Bilateral internal jugular catheters are present with the tips projecting in the SVC. An endotracheal tube is present in satisfactory position. Permanent pacemaker appears intact. Lungs: The left base is opacified consistent with left lower lobe atelectasis and consolidation. There is hazy interstitial infiltration of the right lung. Pleural space: Unremarkable. No pleural effusion. No pneumothorax. Heart/Mediastinum: The cardiac silhouette is enlarged but unchanged. Bones/joints: Unremarkable. XR/XR chest 1V portable [id number] IMPRESSION: 1. Stable positions of the endotracheal tube and central venous catheters. 2. Stable cardiomegaly. 3. Left lower lobe atelectasis/consolidation and bilateral interstitial infiltrates unchanged. Vitals/I&O/Wt Last Vital Signs Temp 98.8 F 05/12/20 04:00 Pulse 103 H 05/12/20 05:30 Resp 15 05/12/20 03:59 BP 105/49 05/12/20 05:30 Pulse Ox 93 05/12/20 05:30 05/11/20 05/11/20 05/12/20 14:59 22:59 06:59 Intake Total 1340.9 / 1340.9 414.64 / 1755.54 100 / 1855.54 Output Total 115 / 115 128 / 243 28 / 271 Balance 1225.9 / 1225.9 286.64 / 1512.54 72 / 1584.54 Weight last 48 hrs Weight 463 lb 10.114 oz Physical Exam Narrative: EXAM NARRATIVE: Patient is intubated on mechanical ventilation and sedated BMI 68.2 Head and neck examination PERRLA no masses no cervical lymphadenopathy no jaundice Right sided neck HD catheter in place without complication left-sided neck left internal jugular vein triple-lumen in place without complication or evidence of bleeding of both sites. Cardiac examination distant heart sounds Chest fair air entry bilateral Abdomen nontender nondistended soft no organomegaly guarding or rigidity/no signs of peritonitis Urinary Catheter Management^: Lynn: Cath Placed During This Visit: yes Reason for Continuing Indwelling Catheter: Accurate Measurement of Urinary Output in Critically Ill Patients Urinary Catheter Date of Insertion: 05/05/20 Urinary Catheter Time of Insertion: 11:55 Data : 05/12/20 03:40 05/12/20 03:40 Micro: Microbiology 05/11/20 04:15 Blood Culture - Preliminary Blood NEGATIVE TO DATE 05/12/20 03:40 Blood Culture - Preliminary Blood SPECIMEN COLLECTED 05/09/20 18:30 Blood Culture - Preliminary Blood Gram positive cocci 05/09/20 18:20 Blood Culture - Preliminary Blood Gram positive cocci 05/11/20 13:48 Gram Stain - Final Sputum - Endotracheal Tube Aspirate 05/06/20 16:45 Blood Culture - Final Blood Staphylococcus aureus 05/06/20 11:45 Blood Culture - Final Blood Staphylococcus aureus 05/11/20 04:32 Blood Culture - Preliminary Blood SPECIMEN COLLECTED A&P Assessment and plan (1) ANTONIO (acute kidney injury): From surgical standpoint of view continue care of HD catheter and triple- lumen central line. Chest x-ray looks to be stable We will continue to follow as on needed basis Please call for any questions or concerns Thank you for consulting general surgery to participate taking care Status: Acute Attestations Medical Necessity Statement*: Inpatient hospitalization for ongoing ICU care Time Spent in Patient Care: (>than 50% of time spent in counselling and/or direct pt care on unit) . Coding Level of Care Code Acute Assistant Nurse Manager for [facility] Fwd Diagnoses ANTONIO (acute kidney injury) N17.9
[2020-05-12] MEDS: nafcillin 2,000 MG in sodium chloride 0.9% (plus) 50 ML 50 MG IV ×4 (06:21→18:50)
[2020-05-12] MEDS: propofol 1,000 MG/100 ML INJ 12.6 MG IV (07:16)
[2020-05-12] MEDS: dexmedetomidine 400 MCG in sodium chloride 0.9% (100 ml) 100 ML 5.5 MCG IV (08:55)
--- NOTE | 2020-05-12 09:11 | PC.NURSE ---
Received positive blood culture results for Staph Aureus. Nurse alerted Dr lo.
[2020-05-12] MEDS: sodium chloride 0.9% (100 ml) 100 ML 30 ML ×2 (09:51→13:56)
[2020-05-12] MEDS: chlorhexidine gluconate 0.12% Btl 473 mL MUCOUS MEM ×2 (10:07→18:58)
[2020-05-12] MEDS: nystatin 100,000 unit/mL UDC 5 mL 200000 UNIT PO ×3 (10:07→18:58)
[2020-05-12] MEDS: pantoprazole 40 mg SDV IVP (10:08)
[2020-05-12] MEDS: FUROsemide 10 mg/mL SDV 10mL 80 MG IVP (10:13)
--- NOTE | 2020-05-12 10:30 | PC.SOCIAL ---
IMM Updated Page 2 of IMM updated with patient's spouse over the phone. Initialed, dated, and timed and placed back in chart. Copy provided to patient's bedside.
[2020-05-12] MEDS: FUROsemide 10 mg/mL SDV 10mL 60 MG IVP (11:16)
[2020-05-12 11:30] LABS: Procalcitonin 1.36 ng/mL (0-0.5)
[2020-05-12 11:41] LABS: Iron 61 ug/dL (59-158); Percent Saturation 41.2 % (20-50); Total Iron Binding Capacity 148 mcg/dl; Unsaturated Iron Binding 87 ug/dL (112-347)
[2020-05-12 12:12] LABS: NT Pro B Type Natriuretic Pept 31244 pg/mL (0-125)
[2020-05-12] MEDS: dexmedetomidine 400 MCG in sodium chloride 0.9% (100 ml) 100 ML 27.2 MCG IV ×2 (12:32→16:38)
--- NOTE | 2020-05-12 13:10 | PM.PN ---
Subjective Subjective: Interval history: I am seeing him in follow up for his renal failure. He was initiated on dialysis yesterday for uremia. Tolerated dialysis well. He is still intubated Medications: Reviewed: Yes Vitals/I&O/Wt Last Vital Signs Temp 99.2 F 05/12/20 12:16 Pulse 84 05/12/20 12:16 Resp 16 05/12/20 12:16 BP 92/53 05/12/20 12:16 Pulse Ox 96 05/12/20 12:16 05/11/20 05/12/20 05/12/20 22:59 06:59 14:59 Intake Total 414.64 / 1755.54 100 / 1855.54 69.892 / 69.892 Output Total 128 / 243 28 / 271 30 / 30 Balance 286.64 / 1512.54 72 / 1584.54 39.892 / 39.892 Weight last 48 hrs Weight 209.605 kg Weight 210.3 kg Physical Exam Narrative: EXAM NARRATIVE: Pt is intubated Const: COMMON NORMALS: no acute distress Resp: AUSCULTATION: crackles and rales Cardio: COMMON NORMALS: S1 normal heart sound present and S2 normal heart sound present HEART SOUNDS: S1 normal heart sound present and S2 normal heart sound present GI: AUSCULTATION: Yes normoactive bowel sounds Extremity: GENERAL: Yes edema Skin: COMMON NORMALS: no rashes or lesions noted GENERAL SKIN EXAM: no rashes or lesions noted Urinary Catheter Management^: Lynn: Cath Placed During This Visit: yes Reason for Continuing Indwelling Catheter: Accurate Measurement of Urinary Output in Critically Ill Patients Urinary Catheter Date of Insertion: 05/05/20 Urinary Catheter Time of Insertion: 11:55 Data : 05/12/20 03:40 05/12/20 03:40 Micro: Microbiology 05/11/20 13:48 Gram Stain - Final Sputum - Endotracheal Tube Aspirate Sputum Culture - Preliminary Staphylococcus aureus 05/09/20 18:30 Blood Culture - Preliminary Blood Staphylococcus aureus 05/09/20 18:20 Blood Culture - Preliminary Blood Staphylococcus aureus 05/11/20 04:32 Blood Culture - Preliminary Blood NEGATIVE TO DATE 05/11/20 04:15 Blood Culture - Preliminary Blood NEGATIVE TO DATE 05/12/20 03:40 Blood Culture - Preliminary Blood SPECIMEN COLLECTED 05/06/20 16:45 Blood Culture - Final Blood Staphylococcus aureus 05/06/20 11:45 Blood Culture - Final Blood Staphylococcus aureus A&P Assessment and plan (1) ANTONIO (acute kidney injury): Will plan for dialysis again today to help in extubation. Will do dialysis for 3hrs, 2k, 2.5 ca, qb 350, qd 600, uf 1 lit as tolerated Status: Acute (2) Hyponatremia: Improving Status: Acute (3) Anemia: Transfuse 1 unit of blood Status: Acute (4) Acidosis: Improving with dialysis Status: Acute Attestations Medical Necessity Statement*: ANTONIO Coding Level of Care Code Acute Filer Repairer for [facility] Fwd Diagnoses ANTONIO (acute kidney injury) N17.9 Hyponatremia E87.1 Anemia D64.9 Acidosis E87.2
--- NOTE | 2020-05-12 15:11 | PC.NURSE ---
Transferring patient to [facility] in [facility]. Bed 104-2. Due to patient size and distance of transport, i called [facility] to pre arrange ground. Per [facility] supervisory air intercept controller, prearrangement of ground not needed. Treat like normal ambulance request when we are ready for transfer.
--- NOTE | 2020-05-12 15:24 | PM.TDS ---
Transfer Summary Providers Date of Admission: 05/03/20 14:13 Date of Discharge: 05/12/20 Attending Provider at Admission: Berny Wright Attending Provider at Transfer: Phuc Islas MD Primary Care Provider: Nirav Parra DO Anticipated Date of Transfer: Anticipated date of transfer: 05/12/20 Receiving Facility & Provider: Receiving Provider: [Dr. Diaz] Receiving facility: [facility]] Diagnoses at Discharge Discharge Diagnosis (1) Tricuspid valve vegetation: Status: Acute (2) Staphylococcus aureus bacteremia: Status: Acute (3) Septicemia: Status: Acute (4) ANTONIO (acute kidney injury): Status: Acute (5) Cardiomyopathy: Status: Chronic Permanent problem details: Ejection fraction around 20 to 25% Qualifiers: Cardiomyopathy type: unspecified Qualified Code(s): I42.9 - Cardiomyopathy, unspecified (6) Atrial fibrillation: Status: Acute Permanent problem details: Rate controlled now. Continue current regimen (7) Paroxysmal atrial fibrillation with RVR: Status: Chronic (8) S/P ICD (internal cardiac defibrillator) procedure: Status: Chronic (9) Acidosis: Status: Acute (10) Anemia: Status: Acute (11) Hyponatremia: Status: Acute (12) Thrombocytopenia: Status: Acute Reason for Visit Reason for Visit: BLOODY EMESIS/ DARK STOOLS/ POST COVID Hospital Course Hospital Course Harry Miles is a 59 year old male with CHF, Atrial fibrillation, difficult to control, with ablation performed in the past, currently on amiodarone and metoprolol, cardiomyopathy s/p AICD, chronic systolic HF, current Ef 20-25% worsened from prior, LE B/L lymphedema, sleep apnea on CPAP. He was recently admitted between 04/20-04/22 for COVID 19 pneumonia (diagnosed 04/10) , A fib with RVR needing cardizem gtt. he was treated with remdesivir x 3 days, Decadron x 5 days, and azithromycin, as needed albuterol MDI, also was continued on Xarelto. Lasix was switched to prn. He was discharged with 2lpm and continued to have issues with rapid HR. He returned on 05/03, initially c/o melanotic stools. Noted to have leukocytosis 16.5, thrombocytopenia 71K and noted to be in afib with RVR. Hospital course has been notable for worsening trombocytopenia with min at 25K (discharged with 188), worsening cough, worsening ANTONIO with cr up to 4, poor urine output and hypoxic respiratory failure. Xarelto is on hold. Lfts mildly elevated upon admission now resolved. Id consult requested as blood cx have returned with Staph aureus, with persistent bacteremia on 05/03, 05/05,05/06. No cx data available from 05/07 and 05/08, thus far pending cx from 05/09 with no growth. No blood cx data available from admission 04/20-04/22. Patient has remained persistently bacteremic with MSSA bacteremia and has been started on nafcillin for last 3 days. His hospital stay was complicated by patient developing ANTONIO/anuria most likely secondary to ATN for which he underwent dialysis catheter placement on May 11 and has had 2 sessions of dialysis. He was also found to have anemia for which he has had 2 units of blood transfusion. Patient also had thrombocytopenia which was new most likely secondary to severe sepsis for which he had 2 units of platelet transfusion. Blood work was done to rule out DIC. Patient underwent SARAHY on May 11 which showed moderately increased LV cavity size with severe LV dysfunction, EF of 45%, at 2.7 cm? mobile mass noted on tricuspid valve which is highly suspicious of vegetation, mildly increased RV size, no obvious irritation noted on the pacemaker wire however the thickening of the pacemaker wire could represent a fibrous tissue versus vegetation, normal LA appendage. Pertinent radiological data : CT CAP 05/03 with B/L scattered opacifications, mediastinal and hilar lymphadenopathy, small pericardial effusion, no gross abdominal fluid collections. No splenomegaly. CT thoracolumbar spine on 05/05 without any signs of osteomyelitis or discitis (non contrast studies). Soft tissue US of LE without any focal collections. TTE 05/06 limited study due to patient's obesity with LVEF 20-25%, dilated LV, biatrial enlargement, no gross vegetations. Patient has an AICD in place, SARAHY not performed for lead evaluation due to thrombocytopenia. No orthopedic hardware per patient history. No ports. No picc lines on recent admission. Maintained on peripheral Iv access for duration of current admission. Patient does not recall any thrombophlebitis or complications at iv sites. Multiple areas of skin excoriation over LE which are chronic appearing. Invasive procedures during hospital stay (as of 05/11/2020): Admit to ICU, floor on 05/09, back to ICU on 05/10 due to progressively symptomatic uremia and anticipated need for hemodialysis Dialysis Catheter placed 05/11 CVL placed 05/11 SARAHY 05/11 Intubated for line placement/SARAHY 05/11 1 pharesis unit platelets 05/06, another pharesis units platelets 05/11 pre-procedure Lynn placed 05/05 Consultants as 05/11/2020: Dr Vickers for surgery due to GI bleed at admission Dr Renteria for surgery later in admission for dialysis catheter line placement and wound evaluation Dr Mcdonald/Benitez for Nephrology Dr Ferreira for Infectious Disease Dr Ware/Rachelle for cardiology Because patient remains persistently bacteremic even though he was on optimal antimicrobial coverage and new finding of 2.7 cm centimeter square of possible vegetation on tricuspid valve, development of thrombocytopenia and NATONIO requiring dialysis and 2 units of PRBC transfusion transfer was sought to higher center for possible cardiothoracic intervention once patient is stabilized. Patient was accepted at [facility]/ICU. Physical Exam Narrative: EXAM NARRATIVE: General: Morbidly obese, sedated intubated HEENT: PERRLA, pupils bilaterally equal and reactive Chest: Diffuse crackles all over the lung martinez, decreased air entry all over the lung martinez, normal vesicular breath sounds CVS: S1-S2 irregularly irregular, soft pansystolic murmur present at fourth parasternal left intercostal space, no tachycardia, no gallops, no rubs Abdomen: Soft, nontender, no organomegaly, bowel sounds present Neuro: No focal deficits, no facial deformity, AO x3, power 5/5 in all limbs Urinary Catheter Management^: Lynn: Cath Placed During This Visit: yes Reason for Continuing Indwelling Catheter: Accurate Measurement of Urinary Output in Critically Ill Patients Urinary Catheter Date of Insertion: 05/05/20 Urinary Catheter Time of Insertion: 11:55 TS Data Data Completed and Pending: Completed Studies During Hospitalization Category Date Time Status CT angio chest w abd pel w con Urge nt Cat Scan 05/03/20 11:[address] lumbar spine w o con* [id number] Routi ne Cat Scan 05/05/20 12:[address] thoracic spin wo con* [id number] Rout ine Cat Scan 05/05/20 12:32 Completed XR chest 1V [id number] Stat Exams 05/11/20 11:51 Completed XR chest 1V teresita ble [id number] Stat Exams 05/03/20 10:39 Completed XR chest 1V teresita ble [id number] Stat Exams 05/11/20 12:36 Completed XR chest 1V teresita ble [id number] Urgent Exams 05/12/20 05:39 Completed CV echo complete* [id number] Routine Ultrasound 05/06/20 09:28 Completed CV echo transesop hageal [id number] Routi ne Ultrasound 05/11/20 10:35 Completed US liver 00150 Ro utine Ultrasound 05/05/20 06:00 Completed US soft tissue/ex tremity 47446 Rout ine Ultrasound 05/05/20 12:34 Completed US soft tissue/ex tremity 72645 Rout ine Ultrasound 05/06/20 08:07 Completed US soft tissue/ex tremity 40168 Rout ine Ultrasound 05/06/20 09:28 Completed Pending at discharge Category Date Time Status XR chest 1V teresita ble [id number] QAM Exams 05/13/20 06:00 Ordered ABO/Rh Type Routi ne Lab 05/10/20 20:30 Results Arterial Blood Ga s Full AM LABS Lab 05/13/20 04:00 Ordered Blood Culture AM LABS Lab 05/09/20 18:20 Results Blood Culture AM LABS Lab 05/11/20 04:32 Results Blood Culture AM LABS Lab 05/12/20 03:40 Ordered Complete Blood Co unt w/Auto AM LABS Lab 05/13/20 04:00 Ordered Complete Crossmat ch Routine Lab 05/10/20 20:30 Results Comprehensive Met abolic Panel AM LA BS Lab 05/13/20 04:00 Ordered Leukocyte Reduced RBC Routine Lab 05/10/20 20:30 Results Leukrd/Plat Phere sis 1st Cont Routi ne Lab 05/10/20 20:30 Results Sputum Culture an d Gram Stain Stat Lab 05/11/20 13:48 Results Type and Screen R outine Lab 05/10/20 20:30 Results Labs from last 24 hours 05/12/20 05/12/20 05/12/20 05:07 03:40 03:40 WBC RBC Hgb Hct MCV MCH MCHC RDW Plt Count MPV Neut % (Auto) Lymph % (Auto) Menard % (Auto) Eos % (Auto) Baso % (Auto) Neut # (Auto) Lymph # (Auto) Menard # (Auto) Eos # (Auto) Baso # (Auto) Nucleated RBC % (a uto) Nucleated RBCs # Specimen Type Arterial Sample Site Radial, right ABG pH 7.44 ABG pCO2 33.7 L ABG pO2 78.2 L ABG HCO3 23.1 ABG O2 Saturation ABG Base Excess -0.8 Rafita Test Pos A-a O2 Gradient Hematocrit 23.8 L Hgb O2 Saturation Carboxyhemoglobin Methemoglobin Total Hemoglobin Sodium Potassium Glucose Ionized Calcium O2 Delivery Device Vent FiO2 35.0 Tidal Volume 0.55 PEEP 8.0 Zipper Machine Operator ID Brandon Chloride Carbon Dioxide Anion Gap BUN Creatinine GFR Calculation Calculated Osmolal ity Calcium Phosphorus Magnesium Iron 61 TIBC 148 % Saturation 41.2 Unsat Iron Binding 87 L NT-Pro-B Natriuret Pep 29513 H Procalcitonin 1.36 H TSH 6.30 H Blood Type Rho(D) Type Antibody Screen Crossmatch 05/12/20 05/12/20 05/11/20 03:40 03:40 16:28 WBC 4.7 RBC 2.31 L Hgb 7.2 L Hct 22.4 L MCV 97.0 H MCH 31.2 MCHC 32.1 RDW 15.1 Plt Count 47 L MPV 12.2 H Neut % (Auto) 67.6 Lymph % (Auto) 17.2 Menard % (Auto) 8.7 Eos % (Auto) 2.1 Baso % (Auto) 0.2 Neut # (Auto) 3.19 Lymph # (Auto) 0.8 Menard # (Auto) 0.4 Eos # (Auto) 0.1 Baso # (Auto) 0.0 Nucleated RBC % (a uto) 0 Nucleated RBCs # 0.0 Specimen Type Arterial Sample Site Radial, left ABG pH 7.30 L ABG pCO2 45.7 H ABG pO2 69.8 L ABG HCO3 22.7 ABG O2 Saturation 94.1 ABG Base Excess -3.6 L Rafita Test Pos A-a O2 Gradient 11.6 H Hematocrit 27.1 L Hgb O2 Saturation 91.9 L Carboxyhemoglobin 1.4 Methemoglobin 0.9 Total Hemoglobin 8.8 L Sodium 134 L 133.0 Potassium 4.7 4.3 Glucose 94 96.0 Ionized Calcium 1.1 O2 Delivery Device Vent FiO2 30.0 Tidal Volume 0.50 PEEP 8.0 Zipper Machine Operator ID Cak Chloride 101 Carbon Dioxide 24 Anion Gap 13.7 BUN 85 H* Creatinine 3.8 H GFR Calculation 16.3 L Calculated Osmolal ity 304 H Calcium 7.2 L Phosphorus 6.5 H Magnesium 2.2 Iron TIBC % Saturation Unsat Iron Binding NT-Pro-B Natriuret Pep Procalcitonin TSH Blood Type Rho(D) Type Antibody Screen Crossmatch 05/10/20 20:30 WBC RBC Hgb Hct MCV MCH MCHC RDW Plt Count MPV Neut % (Auto) Lymph % (Auto) Menard % (Auto) Eos % (Auto) Baso % (Auto) Neut # (Auto) Lymph # (Auto) Menard # (Auto) Eos # (Auto) Baso # (Auto) Nucleated RBC % (a uto) Nucleated RBCs # Specimen Type Sample Site ABG pH ABG pCO2 ABG pO2 ABG HCO3 ABG O2 Saturation ABG Base Excess Rafita Test A-a O2 Gradient Hematocrit Hgb O2 Saturation Carboxyhemoglobin Methemoglobin Total Hemoglobin Sodium Potassium Glucose Ionized Calcium O2 Delivery Device FiO2 Tidal Volume PEEP Zipper Machine Operator ID Chloride Carbon Dioxide Anion Gap BUN Creatinine GFR Calculation Calculated Osmolal ity Calcium Phosphorus Magnesium Iron TIBC % Saturation Unsat Iron Binding NT-Pro-B Natriuret Pep Procalcitonin TSH Blood Type Subgroup of A Rho(D) Type Positive Antibody Screen Negative Crossmatch See Detail Vitals: Last Vital Signs Temp 98.4 F 05/12/20 14:17 Pulse 80 05/12/20 14:17 Resp 12 05/12/20 14:17 BP 118/54 05/12/20 14:17 Pulse Ox 96 05/12/20 14:17 TS Medications Medications Home Medications aspirin 81 mg tablet,delayed release 81 mg PO DAILY tab 09/29/19 [History Confirmed 05/03/20] nitroglycerin 0.4 mg sublingual tablet 0.4 mg SUBLINGUAL Q5M PRN 09/29/19 [History Confirmed 05/03/20] rivaroxaban 20 mg tablet 20 mg PO DAILY tab 09/29/19 [History Confirmed 05/03/20] sacubitril 49 mg-valsartan 51 mg tablet 1 tab PO BID #60 tab 02/09/20 [Rx Confirmed 05/03/20] montelukast [Singulair] 10 mg PO DAILY PRN 04/20/20 [History Confirmed 05/03/20] albuterol sulfate [Ventolin HFA] 2 puff INHALATION Q4H.RESPIRATORY PRN #8.5 gm 04/22/20 [Rx Confirmed 05/03/20] furosemide 40 mg PO DAILY PRN #0 tab 04/22/20 [Rx Confirmed 05/03/20] amiodarone 200 mg tablet 200 mg PO Q12H #60 tab 05/01/20 [Rx Confirmed 05/03/20] metoprolol tartrate 100 mg tablet 100 mg PO TID #180 tab 05/01/20 [Rx Confirmed 05/03/20] acetaminophen [Tylenol Extra Strength] 1,000 mg PO PRN 05/03/20 [History Confirmed 05/03/20] dextromethorphan-guaifenesin [Chest Congestion Relief DM] 1 tab PO QID PRN 05/03/20 [History Confirmed 05/03/20] Active Medications Albuterol Sulfate (Albuterol 8 Gm Mdi) 2 puff INHALATION Q4H.RESPIRATORY PRN PRN Reason: Shortness Of Breath Albuterol Sulfate (Albuterol 2.5 Mg/0.5 Ml Neb) 2.5 mg INHALATION ONCE PRN PRN Reason: WHEEZING Chlorhexidine Gluconate (Chlorhexidine Gluconate 0.12% Btl 473 Ml) 5 ml MUCOUS MEM BID MARGARET Last Admin: 05/12/20 10:07 Dose: 1 applic Documented by: Furosemide (Furosemide 10 Mg/Ml Sdv 10ml) 60 mg IVP Q12H MARGARET Last Admin: 05/12/20 11:16 Dose: 60 mg Documented by: Nafcillin Sodium 2,000 mg/ (Sodium Chloride) 50 mls @ 50 mls/hr IV Q4H MARGARET Last Infusion: 05/12/20 13:05 Dose: Infused Documented by: Dexmedetomidine HCl 400 mcg/ (Sodium Chloride) 104 mls @ 0 mls/hr IV .Q0M [facility]; Protocol Last Admin: 05/12/20 12:32 Dose: 0.5 mcg/kg/hr, 27.2 mls/hr Documented by: Fentanyl 1,000 mcg/ Sodium (Chloride) 100 mls @ 0 mls/hr IV .Q0M [facility]; Protocol Last Admin: 05/12/20 09:01 Dose: 25 mcg/hr, 2.5 mls/hr Documented by: Lanolin (Lanolin Oint 7 Gm) 1 applic TOPICAL PRN PRN PRN Reason: DRYNESS Last Admin: 05/06/20 19:30 Dose: 1 tube Documented by: Metoprolol Tartrate (Metoprolol Tartrate 50 Mg Tablet) 50 mg PO TID [facility] Last Admin: 05/12/20 14:59 Dose: Not Given Documented by: Metoprolol Tartrate (Metoprolol Tartrate 1 Mg/1 Ml Sdv 5 Ml) 5 mg IV Q4H PRN PRN Reason: HR>110 if SBP>90 Morphine Sulfate (Morphine 4 Mg/Ml Sdv 1 Ml) 2 mg IVP Q4H PRN PRN Reason: SEVERE PAIN Last Admin: 05/09/20 00:04 Dose: 2 mg Documented by: Nystatin (Nystatin 100,000 Unit/Ml Udc 5 Ml) 200,000 unit PO QID [facility] Last Admin: 05/12/20 13:03 Dose: 200,000 unit Documented by: Ondansetron HCl (Ondansetron 2 Mg/Ml Sdv 2 Ml) 4 mg IVP Q8H PRN PRN Reason: vomiting, or N/V if npo Oxycodone HCl (Oxycodone 5 Mg Ir Tab/Cap) 5 mg PO Q4H PRN PRN Reason: MODERATE PAIN Last Admin: 05/10/20 13:07 Dose: 5 mg Documented by: Pantoprazole Sodium (Pantoprazole 40 Mg Sdv) 40 mg IVP Q12H [facility] Last Admin: 05/12/20 10:08 Dose: 40 mg Documented by: Sodium Bicarbonate (Sodium Bicarbonate 650 Mg Tablet) 650 mg PO TID [facility] Last Admin: 05/12/20 14:59 Dose: Not Given Documented by: Discharge Plan Discharge Patient Disposition: Xfer Other Condition: Stable Prescriptions: No Action amiodarone 200 mg tablet 200 mg PO Q12H Qty: 60 RF: 3 metoprolol tartrate 100 mg tablet 100 mg PO TID Qty: 180 RF: 2 aspirin [Adult Low Dose Aspirin] 81 mg tablet,delayed release (DR/EC) 81 mg PO DAILY RF: 0 Xarelto 20 mg tablet 20 mg PO DAILY RF: 0 nitroglycerin [Nitrostat] 0.4 mg tablet, sublingual 0.4 mg SUBLINGUAL Q5M PRN (Reason: Chest Pain) RF: 0 sacubitril-valsartan [Entresto] 49-51 mg tablet 1 tab PO BID Qty: 60 RF: 4 montelukast [Singulair] 10 mg Tablet 10 mg PO DAILY PRN (Reason: Cough) RF: 0 albuterol sulfate [Ventolin HFA] 90 mcg/actuation Hfa Aerosol Inhaler 2 puff inhalation Q4H.RESPIRATORY PRN (Reason: Shortness Of Breath) Qty: 8.5 RF: 0 furosemide 40 mg tablet 40 mg PO DAILY PRN (Reason: Edema) Qty: 0 RF: 0 Chest Congestion Relief DM 20-400 mg Tablet 1 tab PO QID PRN (Reason: Cough) RF: 0 Tylenol Extra Strength 500 mg Tablet 1,000 mg PO PRN RF: 0 Referrals: Nirav Parra DO [Primary Care Provider] - Transfer Attestations Time Spent in Transfer Care*: critical care time (Ventilator setting, anemia, thrombocytopenia, MSSA bacteremia, dialysis) Critical Care Time (min): 70 Specific Discharge Activities: Specific discharge activities: educating and/or supporting family/caregiver, discussing with pcp/other providers, discussing with director of casework services/social workers/dc planners, documenting/other paperwork and evaluating patient/reviewing data Status at Transfer: Cognitive status at transfer: other (Intubated), Behavioral status at transfer: cooperative, Functional status at transfer: bed bound Overall status at transfer: patient is not back to baseline Quality Metrics Clinical Quality Measures: During this hospital stay, did patient experience: None Coding Level of Care Code Acute Rn Intern for g Fwd Diagnoses Tricuspid valve vegetation I33.0 Staphylococcus aureus bacteremia R78.81; B95.61 Septicemia A41.9 ANTONIO (acute kidney injury) N17.9 Cardiomyopathy I42.9 Cardiomyopathy type: unspecified Atrial fibrillation I48.91 Paroxysmal atrial fibrillation with RVR I48.0 S/P ICD (internal cardiac defibrillator) procedure Z95.810 Acidosis E87.2 Anemia D64.9 Hyponatremia E87.1 Thrombocytopenia D69.6
--- NOTE | 2020-05-12 16:01 | PC.NURSE ---
Alerted patient's , Nila, of acceptance to [facility]. Transfer is planned for shortly after dialysis is completed.
--- NOTE | 2020-05-12 16:25 | PC.NURSE ---
While using doppler to assess radial pulses, Normal sinus rhythm with occasional gallops heard.
--- NOTE | 2020-05-12 16:59 | PC.NURSE ---
Patient's Dentures, Phone, and phone gold leaf roller given to .
--- NOTE | 2020-05-12 18:34 | PC.NURSE ---
Nurse Called report to [facility]. SPoke to arias. Patient going to room [id number]
--- NOTE | 2020-05-12 18:46 | PC.NURSE ---
Called 911 to requested ambulance transport from [facility].
--- NOTE | 2020-05-12 18:57 | ANE.PACU2 ---
Inpatient post-anesthesia follow up: Airway intact: No Vital signs: Temperature 99.1 F Pulse Rate [Monito r] 127 Pulse Rate 88 Respiratory Rate 20 Blood Pressure [Le ft Arm] 90/63 Blood Pressure 108/61 Pulse Oximetry 94 Oxygen Delivery Me thod [ Nasal Cannula Current Rate & Del tommy] Oxygen Delivery Me thod Mechanical Ventila tion Oxygen Flow Rate [ Current Rate 3 & Delivery] Oxygen Flow Rate 2 Fraction of Inspir ed Oxygen 40 Hydration adequate: Yes Nausea and vomiting: No Pain level: Other Pain level: intubated and sedated Mental status: Altered
[2020-05-12] MEDS: dexmedetomidine 400 MCG in sodium chloride 0.9% (100 ml) 100 ML 32.7 MCG IV (19:39)
--- NOTE | 2020-05-12 19:43 | PC.NURSE ---
Addendum entered by Cam Chaparro RN 05/12/20 19:55: Patient transferred via [employer] and EMT willa with [facility]. Patient's own bipap machine and glasses were sent with the patient. 2 IV pumps with precedex and fentanyl were sent with patient for sedation. The patients phone and dentures were sent home with fifi. Original Note: Patient transferred via [employer] [facility] EMT willa with [facility]. Patient's own bipap machine and glasses were sent with the patient. The patients phone and dentures were sent home with fifi.
--- NOTE | 2020-05-12 19:52 | PC.NURSE ---
NUrse called patient's fifi. Advised EMS is and we are preparing to transport the patient.
== END 2020-05-12 20:09 | disposition short-term general hospital (02) | DRG 871 ==
LOC: ER 14:37 → ICU 14:38 → MEDSURG 05-09 00:58 → ICU 05-10 18:05
PROVIDERS: Hospitalist; Internal Medicine; Student in an Organized Health Care Education/Training Program; Surgery; Admitting Provider Internal Medicine; Emergency Provider Emergency Medicine; PCP Internal Medicine; Visit Provider Student in an Organized Health Care Education/Training Program
PROC: 05HM33Z Insertion of Infusion Device into Right Internal Jugular Vein, Percutaneous Approach (ICD-10-PCS; principal; 2020-05-11 08:40)
PROC: 05HM33Z Insertion of Infusion Device into Right Internal Jugular Vein, Percutaneous Approach (ICD-10-PCS; 2020-05-11 08:40)
DX: A41.01 Sepsis due to Methicillin susceptible Staphylococcus aureus (principal); I33.0 Acute and subacute infective endocarditis; I42.9 Cardiomyopathy, unspecified; N17.9 Acute kidney failure, unspecified; E87.2 Acidosis; E87.1 Hypo-osmolality and hyponatremia; K92.2 Gastrointestinal hemorrhage, unspecified; Z68.44 Body mass index [BMI] 60.0-69.9, adult; D62 Acute posthemorrhagic anemia; R78.81 Bacteremia; N39.0 Urinary tract infection, site not specified; I48.0 Paroxysmal atrial fibrillation; D69.6 Thrombocytopenia, unspecified; Z86.19 Personal history of other infectious and parasitic diseases; Z79.01 Long term (current) use of anticoagulants; Z79.82 Long term (current) use of aspirin; E78.5 Hyperlipidemia, unspecified; I50.9 Heart failure, unspecified; G47.33 Obstructive sleep apnea (adult) (pediatric); Z95.810 Presence of automatic (implantable) cardiac defibrillator; Z87.891 Personal history of nicotine dependence; E66.01 Morbid (severe) obesity due to excess calories; I87.2 Venous insufficiency (chronic) (peripheral); I11.0 Hypertensive heart disease with heart failure; B95.61 Methicillin susceptible Staphylococcus aureus infection as the cause of diseases classified elsewhere
CPT/HCPCS: 12345; 36415; 36430; 36592; 36600; 51702; 71045; 71275; 72128; 72131; 74177; 76000; 76705; 76882; 77001; 80048; 80051; 80053; 80074; 80162; 80500; 81001; 82274; 82330; 82550; 82803; 82805; 83010; 83540; 83550; 83605; 83615; 83735; 83880; 84100; 84145; 84300; 84443; 84540; 85007; 85014; 85018; 85025; 85045; 85049; 85384; 85610; 85651; 85730; 86677; 86706; 86803; 86850; 86900; 86920; 87040; 87070; 87077; 87086; 87186; 87205; 87338; 87340; 87493; 87506; 90935; 93005; 93306; 93312; 93320; 93325; 94002; 94003; 94660; 94664; 94799; 96375; 97110; 97162; 97530; 99283; C1752; C9113; J0282; J0330; J0690; J0692; J1160; J1644; J1940; J2020; J2250; J2270; J2370; J2405; J2704; J3010; J3490; J7030; J7040; J7060; P9016; P9047; Q3014; Q9967